=== PATIENT | female | born 1965 | race Caucasian/White ===

== ENCOUNTER 2017-02-12 05:57 | Inpatient (IN) | payer OTHER ==
[2017-01-30 12:22] VITALS: BMI 32.0
[~2017-02-12] VITALS: Ht 160 cm; Wt 81.8 kg
[2017-02-12] VITALS (8 sets, daily range): BP systolic 93–129; BP diastolic 61–76; PULSE 70–99; TEMP 36.5–37; O2SAT 92–97; Ht 160 cm; Wt 81.8 kg
[~2017-02-12 05:57] MED LIST: ANTICRE6 PO; CETI10TA84 PO; CHOLESTEROL PO; CITA10TA4 PO; DICL1TAB5 PO; FAMO20TA9 PO; MULT-513 PO
[2017-02-12] MEDS ORDERED: PREGABALIN 75 MG CAP PO SCH (06:00)
[2017-02-12] MEDS ORDERED: CLINDAMYCIN 600 MG/54 ML D5W IV SCH (06:00)
[2017-02-12] MEDS ORDERED: LACTATED RINGER'S 1000ML 1,000 ML IV SCH (06:00)
[2017-02-12] MEDS ORDERED: CLINDAMYCIN PHOS 150 MG/ML 2 ML VIAL IV SCH (06:00)
[2017-02-12] MEDS ORDERED: MIDAZOLAM HCL 1 MG/ML 2ML VIAL ONE (06:43)
[2017-02-12] MEDS ORDERED: FENTANYL CITRATE INJ 50 MCG/1 ML 2 ML VIAL ONE ×2 (06:43→08:09)
[2017-02-12] MEDS ORDERED: NRN300 PO (06:54)
[2017-02-12] MEDS ORDERED: PRLSR20 PO (06:54)
[2017-02-12] MEDS ORDERED: ACET-749 PO (06:54)
[2017-02-12] MEDS ORDERED: SIMV20TA2 PO (06:54)
[2017-02-12] MEDS ORDERED: BUPIVACAINE/EPINEPHRINE 0.5% MPF 1:200,000 30 ML VIAL ONE (07:05)
[2017-02-12] MEDS ORDERED: BACITRACIN 50000 UNIT VIAL ONE (07:05)
[2017-02-12] MEDS ORDERED: THROMBIN 5000 UNITS KIT ONE (07:05)
[2017-02-12] MEDS ORDERED: HEPARIN SOD (PORCINE) 1000 UNIT/ML 10 ML VIAL ONE (07:05)
[2017-02-12] MEDS ORDERED: THROMBIN FOR SOLN 20000 UNIT KIT ONE ×2 (07:05→07:06)
[2017-02-12] MEDS ORDERED: FENTANYL CITRATE INJ 50 MCG/1 ML 2 ML VIAL IV PRN (07:15)
[2017-02-12] MEDS ORDERED: HYDROmorphone INJ 1 MG/ML SYR IV PRN ×2 (07:15→12:00)
[2017-02-12] MEDS ORDERED: EpHEDrine SULFATE INJ 50 MG/ML AMP IV PRN (07:15)
[2017-02-12] MEDS ORDERED: ONDANSETRON INJ 2 MG/ML 2 ML VIAL IV PRN ×2 (07:15→09:45)
[2017-02-12] MEDS ORDERED: ATROPINE SULFATE 0.1 MG/ML 5ML SYR IV PRN (07:15)
[2017-02-12] MEDS ORDERED: SCOPOLAMINE 1.5 MG TDSY TD ONE (07:15)
--- NOTE | 2017-02-12 07:30 | History and Physical ---
History & Physical Date Feb 12, 2017. Chief Complaint LBP and bilateral leg pain History of Present Illness The patient is a 51 year old female with complaints of above who had a prior L3- 4 PSF and did well for a number of years. Her ability to tolerate activity and walk longer distances has been markedly limited. She has failed to see improvement with non operative management. MRI shows L2-3 stenosis, L4-5 facet djd. She was cleared by PCP and had a nl stress test preop. She denies santa weakness and incontinence. Past Medical/Surgical History BTL lumbar fusion cspine fusion [facility] elise sinus surgery hernia repair asthma tob use OA depression hi chol Additional History Hepatic Disease: No Endocrine Disorder: No Kidney Disease: No Hypertension: No Heart Disease: No Bleeding Tendencies: No Infectious Diseases: No Allergies Coded Allergies: Hydrocodone (Verified Allergy, Intermediate, ITCHY, 01/30/17) Hydromorphone (Verified Allergy, Intermediate, ITCHING, 01/30/17) Penicillins (Verified Allergy, Intermediate, RED DOTS AND ITCHY, 01/30/17) Sulfa Drugs (Verified Allergy, Intermediate, RED DOTS AND ITCHY, 01/30/17) Ciprofloxacin (Unverified Allergy, Unknown, PRURITIS PER PCP RECORDS , ) Metronidazole (Unverified Allergy, Unknown, HIVES PER PCP RECORDS , ) Morphine (Verified Allergy, Unknown, hives, 01/30/17) Moxifloxacin (Unverified Allergy, Unknown, HIVES PER PCP RECORDS , 02/06/17 ) Oxycodone (Unverified Allergy, Unknown, HIVES, CAN TAKE APAP, 01/30/17) Tramadol (Unverified Allergy, Unknown, RASH PER PCP RECORDS , 02/06/17) Epinephrine (Verified Adverse Reaction, Unknown, MAKES HEART RACE, 01/30/17 ) Home Medications Scheduled Cetirizine (Zyrtec), 10 MG PO HS Citalopram Hydrobromide (Citalopram Hydrobromide), 1 TAB PO HS Diclofenac (Voltaren ), 1 TAB PO HS Gabapentin (Gabapentin), 1 TAB PO TID Multivitamins/Minerals (Mvi With Minerals), 1 TAB PO HS Omeprazole (Prilosec), 40 MG PO DAILY Simvastatin (Zocor), 20 MG PO QPM [Antibiotic], 1 TAB PO BID Scheduled PRN Acetaminophen/Codeine (Tylenol W/Codeine #3), 1 TAB PO TID PRN for Pain Physical Examination Skin: warm/dry Eyes: normal inspection ENT: normal ENT inspection Head: normocephalic, atraumatic Neck: supple, trachea midline Respiratory/Chest: lungs clear, no respiratory distress Cardiovascular: regular rate, rhythm Back: normal inspection, + pertinent finding (midline scar) Extremities: normal inspection, normal range of motion Neurologic/Psych: no motor/sensory deficits, alert, normal reflexes, oriented x 3 Diagnosis lumbar adjacent level djd/stenosis L2-3 and L4-5 Plan of Treatment HWR L3-4 and L2-3 and L4-5 decompression/fusion
[2017-02-12] MEDS ORDERED: BUPIVACAINE 0.5 % 5 MG/1 ML MPF 30ML VIAL ONE (07:54)
[2017-02-12] MEDS ORDERED: FLOSEAL HEMOSTATIC MATRIX 10ML TOP ONE (09:28)
[2017-02-12] MEDS ORDERED: HYDROmorphone INJ 2 MG/ML SYR/VIAL ONE ×2 (09:39→09:43)
--- NOTE | 2017-02-12 09:39 | [facility] Post Operative Brief Note ---
Immediate Operative Summary Operative Date Feb 12, 2017. Pre-Operative Diagnosis Lumbar adjacent level degenerative joint disease, stenosis L2-3 and L4-5 Post-Operative Diagnosis Same as pre-operative diagnosis Procedure(s) Performed L2-L3, L4-L5, Decompression; L2-L5 Instrumented Fusion; L3-L4 Hardware Removal; Infuse; Arteriocyte Surgeon Dr. Francesco Ross Turbo Operator Surgeon(s) Victor Hugo Peace PA-C Estimated Blood Loss 150 ml Findings dict Specimens A: Explanted hardware lumbar spine L3-L4
[2017-02-12] MEDS ORDERED: DEXAMETHASONE SOD INJ 4 MG/ML VIAL ONE (09:40)
[2017-02-12] MEDS ORDERED: NEOSTIGMINE METHYLSULFATE 1 MG/ML 10ML VIAL ONE ×2 (09:40→09:45)
[2017-02-12] MEDS ORDERED: PROPOFOL IV EMULSION 10 MG/ML 20 ML VIAL IV ONE (09:40)
[2017-02-12] MEDS ORDERED: GLYCOPYRROLATE INJ 0.2 MG/ML VIAL ONE ×2 (09:40→09:45)
[2017-02-12] MEDS ORDERED: ROCURONIUM BROMIDE 10 MG/ML 5 ML VIAL ONE (09:40)
[2017-02-12] MEDS ORDERED: RANITIDINE HCL 25 MG/ML INJ ONE ×2 (09:40→09:45)
[2017-02-12] MEDS ORDERED: LIDOCAINE HCL 2% 2 ML VIAL (20MG/ML) ONE (09:40)
[2017-02-12] MEDS ORDERED: ONDANSETRON INJ 2 MG/ML 2 ML VIAL ONE (09:40)
[2017-02-12] MEDS ORDERED: METOCLOPRAMIDE HCL INJ 5 MG/ML 2 ML VIAL ONE (09:45)
[2017-02-12] MEDS ORDERED: FAMOTIDINE 20 MG TAB PO PRN (09:45)
[2017-02-12] MEDS ORDERED: METOCLOPRAMIDE HCL INJ 5 MG/ML 2 ML VIAL IV PRN (09:45)
[2017-02-12] MEDS ORDERED: ESMOLOL HCL 10 MG/ML 10 ML VIAL ONE (09:45)
[2017-02-12] MEDS ORDERED: KETOROLAC TROMETHAMINE 30 MG/ML VIAL ONE (09:45)
[2017-02-12] MEDS ORDERED: LORAZEPAM 0.5 MG TAB PO PRN (09:45)
[2017-02-12] MEDS ORDERED: BISACODYL 10 MG SUPP PR PRN (09:45)
[2017-02-12] MEDS ORDERED: DiphenhydrAMINE HCL 50 MG/ML VIAL ONE (09:45)
[2017-02-12] MEDS ORDERED: ACETAMINOPHEN IV 100 ML IV PRN (09:45)
[2017-02-12] MEDS ORDERED: HYDROmorphone INJ 0.5 MG/0.5 ML SYR IV PRN (09:45)
[2017-02-12] MEDS ORDERED: PROMETHAZINE HCL INJ 12.5 MG in SODIUM CHLORIDE 0.9% 50ML 50 ML IV PRN (09:45)
[2017-02-12] MEDS ORDERED: NALOXONE HCL 0.4 MG/1 ML VIAL/CARP IV PRN (09:45)
[2017-02-12] MEDS ORDERED: MAGNESIUM HYDROXIDE SUSP 30 ML UDC PO PRN (09:45)
[2017-02-12] MEDS ORDERED: hydrOXYzine HCL 25 MG TAB PO PRN (09:45)
[2017-02-12] MEDS ORDERED: LORAZEPAM INJ 0.5 MG in SYRINGE 0.75 ML IV PRN (09:45)
[2017-02-12] MEDS ORDERED: SOD PHOSPHATE/SOD BIPHOSPHATE ENEMA 132 ML BTL PR PRN (09:45)
[2017-02-12] MEDS ORDERED: ALUMINUM/MAGNESIUM SUSP 30 ML UDC PO PRN (09:45)
--- NOTE | 2017-02-12 10:01 | DIAGNOSTIC IMAGING REPORT ---
Intraoperative lumbar spine 3 views CLINICAL HISTORY: L2-5 decompression and fusion COMPARISON STUDY: No previous studies for comparison. FINDINGS: 8 seconds of fluoroscopic time was utilized. There are postsurgical changes of a discectomy and interbody fusion at the L3-4 level. There are bilateral L2 pedicle screws. There is a left-sided L3 pedicle screw, right-sided L4 pedicle screw, bilateral L5 pedicle screws. There are adjoining spinal rods. There is mild retrolisthesis of L2 on L3. IMPRESSION: Postsurgical changes of a discectomy and spinal fusion Electronically signed by: Bismark Arvizu M.D. 02/12/2017 10:00 AM Dictated Date/Time: 02/12/2017 9:58 AM
--- NOTE | 2017-02-12 10:50 | Anesthesiology Progress Note ---
Anesthesia Post Op Note Date & Time Feb 12, 2017 at 10:50 Vital Signs Pain Intensity: 0 Vital Signs Past 12 Hours Date Time Temp Pulse Resp B/P Pulse Ox O2 Delivery O2 Flow Rate FiO2 02/12/17 10:45 36.2 91 16 113/66 96 Nasal Cannula 2 02/12/17 10:35 36.2 92 16 115/73 100 Nasal Cannula 4 02/12/17 10:25 90 20 121/75 100 Nasal Cannula 4 02/12/17 10:15 91 20 121/70 100 Nasal Cannula 4 02/12/17 10:05 97 20 127/75 100 Mask 10 02/12/17 09:55 99 20 114/66 100 Mask 10 02/12/17 09:47 36 97 14 123/58 100 Mask 10 02/12/17 06:39 36.8 70 16 129/68 96 Room Air Notes Mental Status: alert / awake / arousable, participated in evaluation Pt Amnestic to Procedure: Yes Nausea / Vomiting: adequately controlled Pain: adequately controlled Airway Patency, RR, SpO2: stable & adequate BP & HR: stable & adequate Hydration State: stable & adequate Anesthetic Complications: no major complications apparent
--- NOTE | 2017-02-12 11:04 | OPERATIVE REPORT ---
DATE OF OPERATION: 02/12/2017 PREOPERATIVE DIAGNOSES: 1. Previous L3-4 instrumented fusion. 2. L2-3 spinal stenosis. 3. L4-5 spinal stenosis, facet arthrosis. POSTOPERATIVE DIAGNOSIS: Same. PROCEDURES: 1. L2 and L4 laminectomies with bilateral medial facetectomies L2-3 and L3-4. 2. Segmental pedicle screw instrumentation -- bilateral L2, left L3, right L4, bilateral L5 with K2M [place] pedicle screws. 3. Posterolateral fusion L2-3 and L4-5 with Infuse BMP on a collagen sponge, tricalcium phosphate, local bone, bone putty, bone marrow aspirate. 4. Right iliac crest bone marrow aspiration, stem cell concentration Arteriocyte system, application of bone graft ballistics expert forensic. 5. Hardware removal, bilateral L3-4 and exploration of fusion. SURGEON: Dr. Ross. CONVEYOR SYSTEM DISPATCHER: Victor Hugo Peace PA-C. Please note he participated in all portions of the procedure and was critical for performance of the procedure, participated in positioning, prepping, draping, retraction, wound closure. ANESTHESIA: General endotracheal anesthesia. COMPLICATIONS: None. ESTIMATED BLOOD LOSS: Per anesthesia record. PROCEDURE: After identification of patient and operative level, she was brought to the OR where she underwent induction of general anesthesia. She was then positioned prone on Rikki OR table. All bony prominences were well padded. Care was taken to avoid pressure on the periorbital area. Lumbosacral area was sterilely prepped and draped in usual fashion. Antibiotics were administered. Time-out was performed. Level was confirmed and skin incision was infiltrated with Marcaine. I made skin incision from spinous process of L1-L5. I performed routine posterior exposure out to the tip of the transverse processes and placed Gelpi retractors. Previous hardware was identified, level was confirmed and midline decompression was accomplished at L2-3 and L4-5 with removal of the L2 and L4 lamina and takedown ligamentum flavum and removal of the medial facets with osteotome at L2-3 and L4-5. I completed decompression with Kerrisons L2-3 and L4-5 and palpated the nerve roots were decompressed at L2-3 and L4-5 bilaterally. I applied FloSeal for hemostasis and proceeded to remove the hardware at L3-L4 bilaterally. I removed the screws, the rods and demonstrated there was no motion through the L3-4 segment after [place] removal. I then placed pedicle screws bilaterally at L2, bilaterally at L5 and then reintroduced screws into the holes of L3 on the left and L4 on the right. I then checked screw position with fluoroscopy and lowered the Wong frame to restore lordosis. I placed rods and endcaps from L2-L5 bilaterally and final tightening. Crosslink was placed as well. I then aspirated bone marrow from the right iliac crest via separate stab incision with a Jamshidi needle concentrated with the Arteriocyte system applied to bone graft ballistics expert forensic, mixed it with morcellized local bone. I then decorticated the transverse process of L2, L3, L4 and L5 with a high speed benedict as well as facets at L2-3 and L4-5. I then packed the lateral gutters with bone graft mixture as described above including Infuse BMP and a collagen sponge strips. I did irrigate prior to bone grafting. I then obtained final x-rays and closed in layered fashion over ABELARDO drain. All sponge and needle counts were correct at the end of the case. I attest to the content of the Intraoperative Record and any orders documented therein. Any exceptio ns are noted below.
[2017-02-12] MEDS ORDERED: SODIUM CHLORIDE 0.9% 1000ML 1,000 ML IV SCH (12:00)
[2017-02-12] MEDS: GABAPENTIN 300 MG CAP PO SCH ×2 (13:56→21:39)
[2017-02-12] MEDS: DEXAMETHASONE INJ 6 MG in SYRINGE 0 ML IV SCH ×2 (13:56→21:41)
[2017-02-12] MEDS: CLINDAMYCIN IV 600 MG in DEXTROSE 5% ADD-VANTAGE 50ML 50 ML IV SCH ×2 (16:32→23:51)
[2017-02-12] MEDS ORDERED: DOCUSATE SODIUM/SENNA 50/8.6MG TAB PO SCH (21:00)
[2017-02-12] MEDS ORDERED: CITALOPRAM 20 MG TAB PO SCH (21:00)
[2017-02-13] VITALS (7 sets, daily range): BP systolic 104–116; BP diastolic 58–73; PULSE 80–90; TEMP 36.5–37.1; O2SAT 92–94
[2017-02-13] MEDS: DEXAMETHASONE INJ 6 MG in SYRINGE 0 ML IV SCH (05:22)
[2017-02-13 08:29] LABS: COMPLETE YES; HEMATOCRIT 34.1 % (37-47); IG% 0.4 %; LYMPH % 6.4 %; LYMPH ABS # 1.39 K/uL (1.2-3.4); MEAN CELL VOLUME 90.7 fL (80-100); MEAN CORPUSCULAR HEMOGLOBIN 31.1 pg (25-34); MEAN CORPUSCULAR HGB CONC 34.3 g/dl (32-36); MEAN PLATELET VOLUME 10.9 fL (7.4-10.4); MONO % 3.8 %; NEUT % 89.4 %; PLATELET COUNT 319 K/uL (130-400); RED BLOOD COUNT 3.76 M/uL (4.2-5.4)
--- NOTE | 2017-02-13 08:51 | Anesthesiology Progress Note ---
Anesthesia Post Op Note Date & Time Feb 13, 2017 at 08:44 Vital Signs Vital Signs Past 12 Hours Date Time Temp Pulse Resp B/P Pulse Ox O2 Delivery O2 Flow Rate FiO2 02/13/17 08:25 36.8 80 16 110/60 92 Room Air 02/13/17 03:12 36.7 81 16 109/71 92 Room Air 02/13/17 00:09 36.5 87 16 104/65 93 Room Air 02/12/17 21:30 Room Air Notes Mental Status: alert / awake / arousable, participated in evaluation Pt Amnestic to Procedure: Yes Nausea / Vomiting: adequately controlled Pain: adequately controlled Airway Patency, RR, SpO2: stable & adequate BP & HR: stable & adequate Hydration State: stable & adequate Anesthetic Complications: Patient reports that her front upper right lateral incisor is chipped. A small sliver does appear to be missing from the bottom of the tooth and she reports it feels like a portion is missing from the back of the tooth. Dr. Mcgregor notified of patients concern. Patient states no other complaints with the anesthetic and is feeling well otherwise.
[2017-02-13] MEDS: GABAPENTIN 300 MG CAP PO SCH ×2 (08:54→13:48)
[2017-02-13] MEDS: OXYCODONE HCL IR 5 MG TAB (IMMEDIATE RELEASE) PO PRN ×2 (08:57→16:27)
[2017-02-13] MEDS ORDERED: PANTOprazole SOD 40 MG TAB PO SCH (09:00)
[2017-02-13 09:02] LABS: BUN/CREATININE RATIO 10.3 (10-20); CALCIUM 8.7 mg/dl (8.5-10.1); CREATININE 0.68 mg/dl (0.60-1.20); POTASSIUM 3.8 mmol/L (3.5-5.1)
--- NOTE | 2017-02-13 13:54 | Orthopedic Progress Note ---
Orthopedic Progress Note Date of Service Feb 13, 2017. Subjective Post OP Day: 1 Reports: feeling well, pain controlled w PO medications, Denies: SOB, calf pain , chest pain, complaints, light headedness, nausea / vomiting, using ELDERLY COMPANION Objective calves soft nontender, N/V intact, dressing C/D/I, A&O x3, hemovac drainage Date Time Temp Pulse Resp B/P Pulse Ox O2 Delivery O2 Flow Rate FiO2 02/13/17 11:46 37.1 90 20 112/58 93 Room Air 02/13/17 08:51 92 Room Air 02/13/17 08:25 36.8 80 16 110/60 92 Room Air 02/13/17 07:45 Room Air 02/13/17 03:12 36.7 81 16 109/71 92 Room Air 02/13/17 00:09 36.5 87 16 104/65 93 Room Air 02/12/17 21:30 Room Air 02/12/17 19:15 36.7 99 18 99/62 95 Room Air 02/12/17 16:27 37.0 95 18 102/61 92 Nasal Cannula 2.0 02/12/17 14:30 36.6 97 16 99/63 Laboratory Results 24 Hours: Test 02/13/17 06:55 White Blood Count 21.60 K/uL Red Blood Count 3.76 M/uL Hemoglobin 11.7 g/dL Hematocrit 34.1 % Mean Corpuscular Volume 90.7 fL Mean Corpuscular Hemoglobin 31.1 pg Mean Corpuscular Hemoglobin Concent 34.3 g/dl Platelet Count 319 K/uL Mean Platelet Volume 10.9 fL Neutrophils (%) (Auto) 89.4 % Lymphocytes (%) (Auto) 6.4 % Monocytes (%) (Auto) 3.8 % Eosinophils (%) (Auto) 0.0 % Basophils (%) (Auto) 0.0 % Neutrophils # (Auto) 19.30 K/uL Lymphocytes # (Auto) 1.39 K/uL Monocytes # (Auto) 0.82 K/uL Eosinophils # (Auto) 0.00 K/uL Basophils # (Auto) 0.00 K/uL Assessment & Plan Assessment: doing well, pain controlled, tolerates oxycodone, independent with ambulation Plan: desires d/c, will go home with drain Discharge Planning Discharge Planning: home Pain Management: Oxy IR DVT Prophylaxis: SCDs
[2017-02-13] MEDS ORDERED: RXC5 PO (13:55)
--- NOTE | 2017-02-13 13:56 | Discharge Instructions ---
Discharge Instructions Date of Service Feb 13, 2017. Admission Reason for Admission: Lumbar Spinal Stenosis Discharge Discharge Diagnosis / Problem: same Discharge Goals Goal(s): Decrease discomfort Activity Recommendations Activity Limitations: per Instructions/Follow-up section . Instructions / Follow-Up Instructions / Follow-Up ACTIVITY RECOMMENDATIONS: SELF CARE INSTRUCTIONS AFTER THORACIC/LUMBAR FUSIONS 1. You may walk to your tolerance. It is good exercise for your legs and back. Expect some back and intermittent leg aches and pains. 2. You may perform "counter-top" level activities (make a sandwich, monica with a project, etc.). 3. No bending or lifting of more than 10 pounds or back twisting of any nature (roll like a log when turning in bed). 4. You may ride in a car for 20-30 minutes at a time. No driving until after your first visit with your doctor. 5. Frequent changes of position and restricting sitting to 30 minutes at a time will help limit the amount of back spasms and stiffness you may experience. 6. You may discontinue the use of ambulatory aids (cane, crutches, etc.) once your strength and confidence allow. 7. You may electrical machine builder the shower and let water strike your incision when you arrive home at least once daily. Do not take a tub bath, sit in a hot tub or go into a swimming pool until after your first recheck in the office. SPECIAL CARE INSTRUCTIONS: VERY IMPORTANT TO READ AND REVIEW A. Your surgical incision has been closed with a cosmetic suture under the skin that will dissolve in about 6 weeks. In 14 days, you can use a pair of clean scissors and cut the suture that is left outside of the skin at the ends of your incision. 1. The small skin tapes can be removed 7 days after surgery if they have not fallen off by that point. 2. You may keep the wound open to air as much as possible to promote healing after post-op day number 5 unless told otherwise by your doctor. 3. If you think the wound looks like it is becoming infected (redness or worsening drainage) and/or you are experiencing fever, chill or worsening back pain and muscle spasms, contact the office so that we may evaluate you as soon as possible. B. Complications are uncommon, but please contact us if you have any signs or symptoms of: 1. wound infection (fever higher than 102.5 degrees F, redness, separation of wound, drainage, or increasing pain from the incision) 2. blood clots in legs (pain, swelling, redness and warmth in legs) 3. urinary tract infection (fever higher than 102.5 degrees F, burning upon urination or increased frequency of urination) 4. nerve problems (inability to walk on your toes or heels, numbness, loss of bowel or bladder control) 5. any other symptoms that concern you C. Please call the office at if you have any concerns or questions about your operation or recovery. D. No smoking! Smoking drastically decreases the chance of a solid fusion. E. Do not take any anti-inflammatory medications (Indocin, Advil, Motrin, Aspirin, Naprosyn, etc.) as these may inhibit the chance of a solid fusion. Tylenol is okay to take for pain. MANAGING PAIN AFTER SPINAL SURGERY 1. Narcotic medication is intended for short-term use and will be provided for surgical pain. Surgical pain usually lasts for a period of 4-6 weeks. Narcotic medication includes Percocet, Vicodin, Darvocet, Tylenol #3 or Lortab. 2. Longer-term pain is more appropriately treated with non-narcotic medication such as Tylenol ES. 3. Muscle spasm is not appropriately treated with narcotics. Muscle relaxers such as Soma, Flexeril or Skelaxin can be used along with Tylenol ES. 4. Remember that we all live with some "aches and pains". This is not unusual or uncommon after an injury or as we get older. a. Back pain is expected and may include muscle spasms for 4 to 6 weeks after surgery. The pain should gradually improve. If the pain worsens for no apparent reason, please contact the office. b. Intermittent leg pain may also be experienced and should not be concerned about unless it worsens for no apparent reason. If so, please contact the office. 5. We will provide appropriate medication within the normal guidelines of their prescribed use. We will also be very cautious and aware of potential abuse and extended duration of patients' medication needs. a. Pain medications are for your comfort and to assist with sleep and rest so that the tissue can heal. They are not provided in order to return to normal activity and should not be used through the day. To do so or worsening pain at night can result from ongoing tissue damage and development of tolerance to the prescribed medicine. 6. Please allow 2-3 days to process refills. Prescriptions will not be mailed but must be picked up at the office. FOLLOW UP VISIT: Keep your scheduled follow-up appointment. Any questions, please call the office at . Current Hospital Diet Patient's current hospital diet: Regular Diet Discharge Diet Recommended Diet: Regular Diet Procedures Procedures Performed: L2-L3, L4-L5, Decompression; L2-L5 Instrumented Fusion; L3-L4 Hardware Removal; Infuse; Arteriocyte Pending Studies Studies pending at discharge: no Medical Emergencies . Who to Call and When: Medical Emergencies: If at any time you feel your situation is an emergency, please call 911 immediately. . Non-Emergent Contact Non-Emergency issues call your: Surgeon . "Provider Documentation" section prepared by Francesco Ross. VTE Core Measure Inpt VTE Proph given/why not?: SCD's [place] Drug Monitoring Program Search Results: patient reviewed within database, no issues identified
--- NOTE | 2017-02-13 13:59 | Anesthesiology Progress Note ---
Anesthesia Progress Note Date of Service Feb 13, 2017. Progress Notes I evaluated the pt in regards to her chip tooth. She stated not noticing the chip until today. She stated noticing another piece of her tooth breaking off while eating today. Upon examination, there was a small chip on the interior medial surface of tooth #7. The chip was minimal. I spoke to the patient about laryngoscopy or a bite block possibly causing the malformation. The pt did not appear upset and stated she was happy with her care. I spoke with Dr. Ross about the incident. I also talked to Bala Back in regards to the matter. The pt is otherwise doing well without complaints.
[2017-02-14] MEDS ORDERED: POLYETHYLENE (MIRALAX) 17 GM PACK PO SCH (06:00)
--- NOTE | 2017-02-26 11:50 | Discharge Summary ---
Orthopedic Discharge Summary Admission Date/Reason Feb 12, 2017 at 09:42 Lumbar Spinal Stenosis. Discharge Date/Disposition Feb 13, 2017 Home Diagnosis Principal Diagnosis: lumbar stenosis, prior lumbar fusion Procedure(s) Performed HWR removal L3-4 and extension of lumbar fusion L2-5 Consultations hospitalist service Medication Reconciliation New Medications: Oxycodone HCl (Oxycodone HCl) 5 Mg Tab 5-10 MG PO Q4H PRN for Moderate - severe pain, #60 TAB do not take with tylenol with codeine Continued Medications: Acetaminophen/Codeine (Tylenol W/Codeine #3) 300 Mg/30 Mg Tab 1 TAB PO TID PRN for Pain, TAB Cetirizine (Zyrtec) 10 Mg Tab 10 MG PO HS, TAB Citalopram Hydrobromide (Citalopram Hydrobromide) 10 Mg Tab 1 TAB PO HS, TAB 3 Refills Diclofenac (Voltaren ) 25 Mg Tabec 1 TAB PO HS, TAB Gabapentin (Gabapentin) 300 Mg Cap 1 TAB PO TID Multivitamins/Minerals (Mvi With Minerals) Tab 1 TAB PO HS, 0 Refills Omeprazole (Prilosec) 20 Mg Capcr 40 MG PO DAILY, CAP Simvastatin (Zocor) 20 Mg Tab 20 MG PO QPM, TAB [Antibiotic] () 1 TAB PO BID DOENST REMEMBER NAME WILL BRING IN LIST OF MEDS IN AM OF SURGERY Admission Physical Exam As per Admitting History & Physical. Hospital Course Patient was admitted for elective Lumbar fusion and underwent the procedure without complications. She had stable vitals and H/H and was independent with ambulation. her pain was controlled on oral pain meds, and she desired d/c POD1. she was discharged with her HVC drain with instructions to return to office to discontinue it. Discharge Instructions Please refer to the electronic Patient Visit Report (Discharge Instructions) for additional information.
== END 2017-02-13 17:03 | disposition home or self-care (01) | DRG 460 ==
LOC: ENRESERVDT → ENRESERVTM → C.ACU 05:57 → C.3E 09:42
PROVIDERS: ADMIT Orthopaedic Surgery Orthopaedic Surgery of the Spine; ATTEND Orthopaedic Surgery Orthopaedic Surgery of the Spine
PROC: 3E0U0GB Introduction of Recombinant Bone Morphogenetic Protein into Joints, Open Approach (ICD-10-PCS; principal; 2017-02-12 07:30)
PROC: 0SP004Z Removal of Internal Fixation Device from Lumbar Vertebral Joint, Open Approach (ICD-10-PCS; principal; 2017-02-12 07:30)
PROC: 0SG1071 Fusion of 2 or more Lumbar Vertebral Joints with Autologous Tissue Substitute, Posterior Approach, Posterior Column, Open Approach (ICD-10-PCS; principal; 2017-02-12 07:30)
PROC: 07DR3ZZ Extraction of Iliac Bone Marrow, Percutaneous Approach (ICD-10-PCS; principal; 2017-02-12 07:30)
DX: M48.06 Spinal stenosis, lumbar region (principal); M47.816 Spondylosis without myelopathy or radiculopathy, lumbar region; S02.5XXA Fracture of tooth (traumatic), initial encounter for closed fracture; Y70.2 Prosthetic and other implants, materials and accessory anesthesiology devices associated with adverse incidents; Y92.234 Operating room of hospital as the place of occurrence of the external cause; J45.909 Unspecified asthma, uncomplicated; F17.210 Nicotine dependence, cigarettes, uncomplicated; E78.00 Pure hypercholesterolemia, unspecified; K21.9 Gastro-esophageal reflux disease without esophagitis; K58.9 Irritable bowel syndrome, unspecified; M19.90 Unspecified osteoarthritis, unspecified site; F41.9 Anxiety disorder, unspecified; F32.9 Major depressive disorder, single episode, unspecified; E66.9 Obesity, unspecified; Z68.32 Body mass index [BMI] 32.0-32.9, adult; Z98.1 Arthrodesis status; Z79.1 Long term (current) use of non-steroidal anti-inflammatories (NSAID); Z79.899 Other long term (current) drug therapy

== ENCOUNTER 2024-08-20 17:38 | Inpatient (IN) ==
[2024-08-20 18:58] LABS: Appearance Urine Clear (Clear); Bilirubin Urine Negative (Negative); Blood Urine Negative (Negative); Color Urine Yellow; Glucose Urine UA Negative (Negative); Ketones Urine Negative (Negative); Leukocyte Esterase Urine Negative (Negative); Nitrite Urine Negative (Negative); Protein Urine Negative (Negative); Specific Gravity Urine 1.006 (1.000-1.030); Urobilinogen Urine Negative (Negative)
[2024-08-20 19:02] LABS: Basophils # (auto) 0.06 K/uL (0.00-0.20); Basophils % (auto) 0.8 %; Eosinophils # (auto) 0.14 K/uL (0.00-0.50); Eosinophils % (auto) 1.8 %; Hematocrit (blood only) 46.1 % (37.0-47.0); Hemoglobin 16.1 g/dl (12.0-16.0); Immature Granulocytes # (auto) 0.03 K/uL (0.01-0.20); Immature Granulocytes % (auto) 0.4 %; Lymphocytes # (auto) 2.83 K/uL (1.20-3.40); Lymphocytes % (auto) 36.3 %; Mean Corpuscular Hgb Conc 34.9 g/dL (32.0-36.0); Mean Corpuscular Volume 88.7 fL (80.0-100.0); Mean Platelet Volume 10.3 fL (9.4-12.4); Monocytes % (auto) 10.3 %; Neutrophils # (auto) 3.93 K/uL (1.40-6.50); Neutrophils % (auto) 50.4 %; Platelet Count 430 K/uL (130-400); RDW Coefficient of Variation 12.9 % (11.5-14.5); RDW Standard Deviation 42.2 fL (36.4-46.3); White Blood Count 7.79 K/ul (4.8-10.8)
--- NOTE | 2024-08-20 19:12 | Emergency Department Note ---
Impression & Plan Cauda equina compression, Spinal stenosis, lumbar region with neurogenic claudication, DDD (degenerative disc disease), lumbar ED Provider Note NAME: MONTEZ COY AGE: 59 SEX: F : 1965 ARRIVES VIA: Walk-In INFORMANT: Patient, ED PROVIDER(S): María Mccurdy MD CHIEF COMPLAINT: Abnormal MRI HPI: This is a 59-year-old female presents for abnormal MRI. Patient has had month-long history of worsening lower back pain. She has history of neck pain. She notes that for the past few weeks that she has had increasing episodes of bladder incontinence at night specifically. During the day she also has incontinence where he does not have a get to a bathroom in time, she does urinate on herself. She also notes sensation changes to her groin region. She is noting tingling pain down both of her legs as well as back. She has excruciating back pain. She had previously had surgery with Dr. Sharma here. ROS: See above HPI for pertinent positives & negatives. A total of 10 systems reviewed and were otherwise negative. PAST MEDICAL HISTORY: See Below PAST SURGICAL HISTORY: See Below FAMILY HISTORY: See Below SOCIAL HISTORY: See Below HOME MEDICATIONS: See Below ALLERGIES: See Below VITALS: See Below PHYSICAL EXAMINATION: General: resting comfortably in no acute distress Head: Normocephalic and atraumatic Eyes: Normal inspection, extraocular muscles intact Ear, nose, throat: Normal external exam Neck: Normal range of motion Respiratory: lungs clear to auscultation bilaterally Cardiovascular: Regular rate/rhythm, no murmur GI: soft, nontender, no guarding or rebound : Sensation changes to groin, no numbness Extremities: nontender, moves all extremities Neuro: The patient awake and alert, appropriately conversive, no focal deficits, symmetric faces, strength 5/5 bilateral extremities Skin: Warm, dry, and intact MEDICAL DECISION MAKING: This is a 59-year-old female presenting for abnormal MRI. Patient's MRI does reveal signs of moderate to severe canal stenosis at the level L1/L2. In addition there is compression of the nerve roots of cauda equina. Clinically she does not have clinical cauda equina to the point where she is having motor weakness or true incontinence. She did have a bladder scan here pre and post urinating going from 400s down to 6 mL. Otherwise she has full strength my exam. She does have sensation changes to her groin but not numbness. -Discussed with Matthew Courtney PA-C for orthopedic spine, Dr. Sharma, who was told about the story and need for consultation. They are available tomorrow morning. -Currently patient is not have clinical cauda equina on my exam but does have concerning findings on MRI. Will admit for further workup. Discussed Dr. Henderson who is agreement for admission at this time. Differential diagnosis: Cauda equina, central canal stenosis ER treatment provided: See below Independent History obtained from: Diagnostics interpreted by me: ECG: None Cardiac Monitoring: An order was placed for continuous cardiac monitoring. The monitor shows a rate of 88 with sinus rhythm. Laboratory studies: As stated above and show below. Imaging studies: See below. Past Med/Surg History Problem List (Updated 08/22/24 @ 03:48 by María Mccurdy MD) Cauda equina compression (Acute) Spinal stenosis, lumbar region with neurogenic claudication (Acute) DDD (degenerative disc disease), lumbar (Acute) Medical History Lumbar spinal stenosis Depression with anxiety Tobacco use IBS (irritable bowel syndrome) GERD (gastroesophageal reflux disease) HLD (hyperlipidemia) Surgical History Hx of neck surgery History of dental surgery wisdom tooth extraction Hx of tubal ligation Hx of cholecystectomy Hx of total hysterectomy Hx of sinus surgery History of carpal tunnel surgery Hx of lumbar discectomy History of resection of small bowel History of incisional hernia repair Hx of esophagogastroduodenoscopy Hx of colonoscopy Family History Mother Asthma Coronary heart disease Dyslipidemia Father Cancer Social History Smoking Status: Current every day smoker Tobacco Type: Cigarettes Cigarettes Per Day: 7; Do You Dip or Chew Tobacco: No; Tobacco Cessation Education Requested by Patient: No Hx Alcohol Use: No Hx Substance Use: No Preferred Language: Greenlandic Communication Ability: Effective Research Associate Policy Required: No Beliefs That Will Affect Care: None Current Living Situation: Family Feels Safe at Home: Yes and No Is there a partner from a previous relationship who is making you feel unsafe now?: No Any Concerns about Your Family Situation: No Would You Like to Speak to Someone About Your Situation: No Safety Concerns: Feels Safe At This Time Assistive Devices: Walker Allergies Allergies Allergy/AdvReac Type Severity Reaction Status Date / Time hydrocodone Allergy Intermediate ITCHY Verified 08/21/24 10:55 hydromorphone Allergy Intermediate ITCHING Verified 08/21/24 10:55 Penicillins Allergy Intermediate RED DOTS Verified 08/21/24 10:55 AND ITCHY Sulfa (Sulfonamide Allergy Intermediate RED DOTS Verified 08/21/24 10:55 Antibiotics) AND ITCHY ciprofloxacin [Cipro] Allergy Unknown PRURITIS Verified 08/21/24 10:55 PER PCP RECORDS metronidazole Allergy Unknown HIVES PER Verified 08/21/24 10:55 PCP RECORDS morphine Allergy Unknown hives Verified 08/21/24 10:55 moxifloxacin Allergy Unknown HIVES PER Verified 08/21/24 10:55 PCP RECORDS tramadol Allergy Unknown RASH PER Verified 08/21/24 10:55 PCP RECORDS Iodinated Contrast Media Allergy Anaphylaxis Verified 08/21/24 10:55 epinephrine AdvReac Unknown MAKES Verified 08/21/24 10:55 HEART RACE vicodine Allergy Intermediate Hives Uncoded 08/20/24 20:25 fentanyl Allergy Unknown Uncoded 08/20/24 20:25 Home Meds Home Medications Medication Instructions Recorded Confirmed acetaminophen 300 mg-codeine 30 mg 1 tab PO Q6H PRN Moderate Pain 08/20/24 08/20/24 tablet (Scale Score 5-6) albuterol sulfate 90 mcg/actuation 1 inh inhalation Q4H PRN 08/20/24 08/20/24 aerosol inhaler sob/wheezing cholecalciferol (vitamin D3) 25 50 mcg PO HS 08/20/24 08/20/24 mcg (1,000 unit) tablet cyanocobalamin (vitamin B-12) 500 1,000 mcg PO HS 08/20/24 08/20/24 mcg tablet levocetirizine 5 mg tablet 5 mg PO HS 08/20/24 08/20/24 montelukast 10 mg tablet 10 mg PO HS 08/20/24 08/20/24 multivitamin 1 tab PO HS 08/20/24 08/20/24 omeprazole 40 mg capsule,delayed 40 mg PO HS 08/20/24 08/20/24 release paroxetine HCl 10 mg tablet 10 mg PO HS 08/20/24 08/20/24 paroxetine HCl 40 mg tablet 40 mg PO HS 08/20/24 08/20/24 simvastatin 20 mg tablet 20 mg PO HS 08/20/24 08/20/24 Results & Data (ED) Vital Signs Vital Signs - 24 hr 08/21/24 07:54 08/21/24 07:54 Temperature 37.0 C Temperature Source Oral Pulse Rate [Left] 78 Respiratory Rate 17 Blood Pressure [Left Arm] 111/71 Blood Pressure Mean [Left Arm] 84 Blood Pressure Position [Left Arm] Lying Pulse Oximetry 92 Oxygen Delivery Method Room Air EWS Level of Consciousness - Last Result Spontaneously Alert EWS Temperature - Last Result 36.8 EWS Respiratory Rate - Last Result 16 EWS Oxygen Saturation - Last Result 96 EWS Oxygen in Use - Last Result No EWS Score 0 EWS Clinical Risk Low Risk Laboratory Data 08/20/24 18:33 08/20/24 18:33 Lab Results 08/20/24 Range/Units 18:33 WBC 7.79 (4.8-10.8) K/ul RBC 5.20 (4.20-5.40) M/uL Hgb 16.1 H (12.0-16.0) g/dl Hct 46.1 (37.0-47.0) % MCV 88.7 (80.0-100.0) fL MCH 31.0 (25.0-34.0) pg MCHC 34.9 (32.0-36.0) g/dL RDW Std Deviation 42.2 (36.4-46.3) fL RDW Coeff of Ankush 12.9 (11.5-14.5) % Plt Count 430 H (130-400) K/uL MPV 10.3 (9.4-12.4) fL Immature Gran % (Auto) 0.4 % Neut % (Auto) 50.4 % Lymph % (Auto) 36.3 % Ector % (Auto) 10.3 % Eos % (Auto) 1.8 % Baso % (Auto) 0.8 % Neut # (Auto) 3.93 (1.40-6.50) K/uL Lymph # (Auto) 2.83 (1.20-3.40) K/uL Ector # (Auto) 0.80 H (0.11-0.59) K/uL Eos # (Auto) 0.14 (0.00-0.50) K/uL Baso # (Auto) 0.06 (0.00-0.20) K/uL Immature Gran # (Auto) 0.03 (0.01-0.20) K/uL Sodium 139 (136-145) mmol/L Potassium 3.7 (3.5-5.1) mmol/L Chloride 104 (98-107) mmol/L Carbon Dioxide 28 (21-32) mmol/L Anion Gap 7 (3-11) BUN 6 (6-23) mg/dl Creatinine 0.73 (0.6-1.2) mg/dl Est Cr Clr Drug Dosing 78.7 ml/min eGFR 93.51 BUN/Creatinine Ratio 8.2 L (10-20) Glucose 92 (70-99(Fasting)) mg/dl Calcium 9.3 (8.6-10.3) mg/dl Total Bilirubin 0.5 (0.2-1.0) mg/dl AST 15 (13-39) U/L ALT 14 (7-52) U/L Alkaline Phosphatase 71 (34-104) U/L Total Protein 7.3 (6.0-8.3) gm/dl Albumin 4.4 (3.4-5.0) gm/dl Globulin 2.9 (2.5-4.0) gm/dl Albumin/Globulin Ratio 1.5 (0.9-2) Urine Color Yellow Urine Appearance Clear (Clear) Urine pH 7.0 (4.5-7.5) Ur Specific Ivor 1.006 (1.000-1.030) Urine Protein Negative (Negative) Urine Glucose (UA) Negative (Negative) Urine Ketones Negative (Negative) Urine Blood Negative (Negative) Urine Nitrite Negative (Negative) Urine Bilirubin Negative (Negative) Urine Urobilinogen Negative (Negative) Ur Leukocyte Esterase Negative (Negative) Administered Medications Cetirizine HCl (Cetirizine Hcl 10 Mg Tablet) 10 mg PO [facility] Stop: 09/19/24 22:29 Last Admin: 08/21/24 20:17 Dose: 10 mg Documented By: Admin: 08/20/24 23:17 Dose: 10 mg Documented By: JEREMY Cyanocobalamin (Cyanocobalamin (B-12) 500 Mcg Tablet) 1,000 mcg PO HS YAMILET Stop: 09/19/24 22:29 Last Admin: 08/21/24 20:17 Dose: 1,000 mcg Documented By: Admin: 08/20/24 23:15 Dose: 1,000 mcg Documented By: [facility]R Lactated Ringer's (Lr) 1,000 mls @ 15 mls/hr IV .Q24H YAMILET Stop: 09/20/24 11:14 Last Infusion: 08/21/24 11:51 Dose: Infused Documented By: Admin: 08/21/24 11:03 Dose: 15 mls/hr Documented By: ADDISON Clindamycin Phosphate (Cleocin/D5w) 900 mg in 50 mls @ 100 mls/hr IV PREOP YAMILET Stop: 08/22/24 05:59 Last Infusion: 08/21/24 16:56 Dose: Infused Documented By: Admin: 08/21/24 11:54 Dose: 100 mls/hr Documented By: KIARA Lactated Ringer's (Lr) 1,000 mls @ 100 mls/hr IV .Q10H YAMILET Stop: 09/20/24 16:43 Last Admin: 08/22/24 03:09 Dose: 100 mls/hr Documented By: Infusion: 08/22/24 03:09 Dose: Infused Documented By: Admin: 08/21/24 17:14 Dose: 100 mls/hr Documented By: JAVAN Clindamycin Phosphate (Cleocin/D5w) 600 mg in 50 mls @ 100 mls/hr IV Q8H YAMILET Stop: 08/22/24 04:29 Last Infusion: 08/22/24 03:39 Dose: Infused Documented By: Admin: 08/22/24 03:09 Dose: 100 mls/hr Documented By: Infusion: 08/21/24 20:47 Dose: Infused Documented By: Admin: 08/21/24 20:17 Dose: 100 mls/hr Documented By: JOHNNY Lidocaine (Lidocaine 5% 1 Patch) 1 patch TD HS YAMILET Stop: 09/19/24 20:59 Last Admin: 08/21/24 20:17 Dose: Not Given Documented By: Admin: 08/20/24 21:00 Dose: 1 patch Documented By: JEREMY Lorazepam (Lorazepam 0.5 Mg Tab) 0.5 mg PO TID PRN PRN Reason: Anxiety Stop: 09/19/24 21:11 Last Admin: 08/21/24 00:24 Dose: 0.5 mg Documented By: MICHEL Miscellaneous (Remove Lidoderm Patch) 1 each N/A DAILY@0900 [facility] Stop: 09/20/24 08:59 Last Admin: 08/21/24 08:16 Dose: 1 each Documented By: JAVAN Montelukast Sodium (Montelukast Sodium 10 Mg Tablet) 10 mg PO [facility] Stop: 09/19/24 22:29 Last Admin: 08/21/24 20:17 Dose: 10 mg Documented By: Admin: 08/20/24 23:16 Dose: 10 mg Documented By: JEREMY Multivitamins (Multivitamin Tab) 1 tab PO [facility] Stop: 09/19/24 22:29 Last Admin: 08/21/24 20:17 Dose: 1 tab Documented By: Admin: 08/20/24 23:17 Dose: 1 tab Documented By: JEREMY Oxycodone HCl (Oxycodone Hcl Ir 5 Mg Tab (Immediate Release)) 5 - 10 mg PO Q4H PRN PRN Reason: Pain & Pre PT Stop: 09/04/24 16:43 Last Admin: 08/21/24 21:46 Dose: 10 mg Documented By: JOHNNY Pantoprazole Sodium (Pantoprazole 40 Mg Tab) 40 mg PO [facility] Stop: 09/19/24 22:29 Last Admin: 08/21/24 20:17 Dose: 40 mg Documented By: Admin: 08/21/24 00:24 Dose: 40 mg Documented By: MICHEL Paroxetine HCl (Paroxetine Hcl 10 Mg Tab) 10 mg PO [facility] Stop: 09/20/24 20:59 Last Admin: 08/21/24 21:43 Dose: 10 mg Documented By: JOHNNY Paroxetine HCl (Paroxetine Hcl 20 Mg Tab) 40 mg PO [facility] Stop: 09/20/24 20:59 Last Admin: 08/21/24 21:43 Dose: 40 mg Documented By: JOHNNY Senna/Docusate Sodium (Docusate Sodium/Senna 50/8.6mg Tab) 2 tab PO HS YAMILET Stop: 09/20/24 20:59 Last Admin: 08/21/24 20:17 Dose: 2 tab Documented By: JOHNNY Simvastatin (Simvastatin 20 Mg Tab) 20 mg PO [facility] Stop: 09/19/24 22:29 Last Admin: 08/21/24 20:17 Dose: 20 mg Documented By: Admin: 08/20/24 23:17 Dose: 20 mg Documented By: JEREMY Vitamin D (Cholecalciferol 25 Mcg (1000 Units) Tab) 50 mcg PO [facility] Stop: 09/20/24 20:59 Last Admin: 08/21/24 20:17 Dose: 50 mcg Documented By: JOHNNY Discontinued Medications Bupivacaine HCl/Epinephrine Bitart (Bupivacaine/Epinephrine 0.25% 1:200,000 30 Ml Vial) Confirm Administered Dose 30 ml .ROUTE .STK-MED ONE Stop: 08/21/24 11:27 Last Admin: 08/21/24 12:40 Dose: 25 ml Documented By: GMJoel Bupivacaine HCl/Epinephrine Bitart (Bupivacaine/Epinephrine 0.25% 1:200,000 30 Ml Vial) Confirm Administered Dose 30 ml .ROUTE .STK-MED ONE Stop: 08/21/24 11:42 Last Admin: 08/21/24 12:40 Dose: Not Given Documented By: BM Cefazolin Sodium (Cefazolin 330 Mg/Ml 1 Gm Vial) Confirm Administered Dose 990 mg .ROUTE .STK-MED ONE Stop: 08/21/24 11:27 Last Admin: 08/21/24 12:39 Dose: Not Given Documented By: BM Cefazolin Sodium (Cefazolin 330 Mg/Ml 1 Gm Vial) Confirm Administered Dose 990 mg .ROUTE .STK-MED ONE Stop: 08/21/24 11:42 Last Admin: 08/21/24 12:39 Dose: Not Given Documented By: BM Clindamycin Phosphate (Clindamycin 900 Mg/D5w 50 Ml Bag) Confirm Administered Dose 900 mg IV .STK-MED ONE Stop: 08/21/24 11:16 Last Admin: 08/21/24 12:40 Dose: Not Given Documented By: BM Sodium Chloride (Nss) 1,000 mls @ 60 mls/hr IV .[id number] ONE Stop: 08/21/24 13:28 Last Infusion: 08/21/24 16:56 Dose: Infused Documented By: Infusion: 08/21/24 10:50 Dose: 0 mls/hr Documented By: Infusion: 08/21/24 00:13 Dose: 60 mls/hr Documented By: Admin: 08/20/24 21:03 Dose: 60 mls/hr Documented By: JEREMY Miscellaneous ( Floseal Hemostatic Matrix 10ml) 10 ml TOP ONCE ONE Stop: 08/21/24 14:00 Last Admin: 08/21/24 13:30 Dose: 1 ml Documented By: POLO Oxycodone HCl (Oxycodone Hcl Ir 5 Mg Tab (Immediate Release)) 5 - 10 mg PO QID PRN PRN Reason: Pain Stop: 09/03/24 20:19 Last Admin: 08/21/24 08:15 Dose: 10 mg Documented By: Admin: 08/21/24 04:00 Dose: 10 mg Documented By: Admin: 08/20/24 21:04 Dose: 10 mg Documented By: JEREMY Paroxetine HCl (Paroxetine Hcl 10 Mg Tab) 50 mg PO HS YAMILET Stop: 09/19/24 22:29 Last Admin: 08/20/24 23:17 Dose: 50 mg Documented By: JEREMY Scopolamine (Scopolamine 1 Mg/72 Hr Tdsy Patch) Confirm Administered Dose 1 patch TD .STK-MED ONE Stop: 08/21/24 11:50 Last Admin: 08/21/24 11:50 Dose: 1 patch Documented By: GABRIEL Discharge Plan Visit Data Chief Complaint: Abnormal Labs/Diagnostic Testing Stated Complaint: ABN MRI RESULT, DOC REF ED Provider: María Mccurdy Discharge Problem: Cauda equina compression, Spinal stenosis, lumbar region with neurogenic claudication, DDD (degenerative disc disease), lumbar Patient Disposition: Admitted As Inpatient Discharge Instructions Interventions: ED Discharge Assessment Last Done: 08/20/24 23:33
[2024-08-20 19:17] LABS: Albumin Globulin Ratio 1.5 (0.9-2); Albumin Level 4.4 gm/dl (3.4-5.0); BUN Creatinine Ratio 8.2 (10-20); Bilirubin,Total 0.5 mg/dl (0.2-1.0); Calcium 9.3 mg/dl (8.6-10.3); Creatinine Clr Calc Pharmacy 78.7 ml/min; Globulin 2.9 gm/dl (2.5-4.0); Potassium 3.7 mmol/L (3.5-5.1); Total Protein 7.3 gm/dl (6.0-8.3)
[2024-08-20] MEDS ORDERED: PROMETHAZINE 12.5 MG/50.5 ML BAG IV PRN (20:20)
[2024-08-20] MEDS ORDERED: ACETAMINOPHEN 325 MG TAB PO PRN (20:20)
--- NOTE | 2024-08-20 20:34 | History & Physical Report ---
Date of Service August 20, 2024 Assessment & Plan (1) Spinal stenosis, lumbar region with neurogenic claudication: (2) Cauda equina compression: (3) Tobacco use: (4) HLD (hyperlipidemia): (5) GERD (gastroesophageal reflux disease): (6) IBS (irritable bowel syndrome): (7) Depression with anxiety: Plan This is a 59-year-old female who has significant past medical history of Hyperlipidemia, thyroid nodule, GERD, IBS, obesity, DDD, history of cervical and lumbar surgery, RLS, tobacco use disorder, depression with anxiety who presents to ED secondary to abnormal MRI. Outpt MRI done at [facility]: * 1. Stable postsurgical changes of L2 through L5 instrumented posterior spinal fusion, L2-L3 through L4-L5 laminectomies and L3-L4 interbody fusion. * 2. Multilevel degenerative changes in the lumbar spine as described above, more pronounced at L1-L2 level with resultant moderate to severe spinal canal stenosis and compression of the nerve roots of the cauda equina. Interval progression as compared with prior MRI dated 02/13/2022. Discussed with [facility] Radiology to push images in PAC system to [facility] and this was complete Pts HPI, past history, physical exam, med reconciliation and discussion with [facility] radiology was performed by myself. Please refer to Dr. Jennings addendum regarding details of assessment and plan. History of Present Illness Chief Complaint: Referred to ED due to abnormal MRI Primary Care Provider: Alexa Martinez MD This is a 59-year-old female who has significant past medical history of Hyperlipidemia, thyroid nodule, GERD, IBS, obesity, DDD, history of cervical and lumbar surgery, RLS, tobacco use disorder, depression with anxiety who presents to ED secondary to abnormal MRI. She had a lumbar spine MRI performed on 08/19/2024. Results were consistent with moderate to severe spinal canal stenosis and compression of the nerve roots of the cauda equina more pronounced at L1-L2 level. This revealed significant change from MRI in 2021. Due to her prior history to be performed by Dr. Sharma it was recommended she seek ED at [facility]. She complains of worsening low back pain for the 4 months. She states she was seen down at [facility] and was told it was her neck. She has been, "doctoring," this at home for the last 4 months and the pain and weakness have been getting worse. She is having tingling in her tailbone. She has been using the tylenol with codeine and only mild relief. Again she has had prior lumbar surgery with Dr. Sharma. Over the last few weeks she has had intermittent episodes of bladder incontinence. She also complains of saddle anesthesia. She does have further radicular symptoms with tingling in the poste rior aspect of her lower extremities. Allergies Allergy/AdvReac Type Severity Reaction Status Date / Time hydrocodone Allergy Intermediate ITCHY Verified 01/30/17 12:19 hydromorphone Allergy Intermediate ITCHING Verified 01/30/17 12:19 Penicillins Allergy Intermediate RED DOTS Verified 01/30/17 12:19 AND ITCHY Sulfa (Sulfonamide Allergy Intermediate RED DOTS Verified 01/30/17 12:19 Antibiotics) AND ITCHY Cipro Allergy Unknown PRURITIS Unverified 02/06/17 12:37 PER PCP RECORDS ciprofloxacin [Cipro] Allergy Unknown PRURITIS Unverified 08/20/24 18:36 PER PCP RECORDS metronidazole Allergy Unknown HIVES PER Unverified 02/06/17 12:37 PCP RECORDS morphine Allergy Unknown hives Verified 01/30/17 12:19 moxifloxacin Allergy Unknown HIVES PER Unverified 02/06/17 12:37 PCP RECORDS tramadol Allergy Unknown RASH PER Unverified 02/06/17 12:37 PCP RECORDS Iodinated Contrast Media Allergy Anaphylaxis Verified 08/20/24 18:36 epinephrine AdvReac Unknown MAKES Verified 01/30/17 12:19 HEART RACE vicodine Allergy Intermediate Hives Uncoded 08/20/24 20:25 fentanyl Allergy Unknown Uncoded 08/20/24 20:25 Home Medications Medication Instructions Recorded Confirmed Type acetaminophen 300 mg-codeine 30 mg 1 tab PO Q6H PRN Moderate Pain 08/20/24 08/20/24 History tablet (Scale Score 5-6) albuterol sulfate 90 mcg/actuation 1 inh inhalation Q4H PRN 08/20/24 08/20/24 History aerosol inhaler sob/wheezing cholecalciferol (vitamin D3) 25 50 mcg PO HS 08/20/24 08/20/24 History mcg (1,000 unit) tablet cyanocobalamin (vitamin B-12) 500 1,000 mcg PO HS 08/20/24 08/20/24 History mcg tablet levocetirizine 5 mg tablet 5 mg PO HS 08/20/24 08/20/24 History montelukast 10 mg tablet 10 mg PO HS 08/20/24 08/20/24 History multivitamin 1 tab PO HS 08/20/24 08/20/24 History omeprazole 40 mg capsule,delayed 40 mg PO HS 08/20/24 08/20/24 History release paroxetine HCl 10 mg tablet 10 mg PO HS 08/20/24 08/20/24 History paroxetine HCl 40 mg tablet 40 mg PO HS 08/20/24 08/20/24 History simvastatin 20 mg tablet 20 mg PO HS 08/20/24 08/20/24 History Past Med/Surg History Problem List (Updated 08/20/24 @ 21:08 by Chrissy Quijano PA-C) Cauda equina compression Spinal stenosis, lumbar region with neurogenic claudication DDD (degenerative disc disease), lumbar Medical History Lumbar spinal stenosis Depression with anxiety Tobacco use IBS (irritable bowel syndrome) GERD (gastroesophageal reflux disease) HLD (hyperlipidemia) Surgical History Hx of neck surgery History of dental surgery wisdom tooth extraction Hx of tubal ligation Hx of cholecystectomy Hx of total hysterectomy Hx of sinus surgery History of carpal tunnel surgery Hx of lumbar discectomy History of resection of small bowel History of incisional hernia repair Hx of esophagogastroduodenoscopy Hx of colonoscopy Family History Mother Asthma Coronary heart disease Dyslipidemia Father Cancer Social History Smoking Status: Current every day smoker Tobacco Type: Cigarettes Cigarettes Per Day: 7; Do You Dip or Chew Tobacco: No; Tobacco Cessation Education Requested by Patient: No Hx Alcohol Use: No Hx Substance Use: No Preferred Language: Iraqi Communication Ability: Effective Part Maker Required: No Beliefs That Will Affect Care: None Current Living Situation: Family Feels Safe at Home: Yes and No Is there a partner from a previous relationship who is making you feel unsafe now?: No Any Concerns about Your Family Situation: No Would You Like to Speak to Someone About Your Situation: No Safety Concerns: Feels Safe At This Time Assistive Devices: Glasses Review of Systems Review of Systems: All systems reviewed & are unremarkable except as noted in HPI & below Physical Exam Physical Exam: Constitutional: WD/WN, vitals as above, NAD, sitting up in bed, pleasant, conversing easily Head: Normocephalic, Atraumatic Eyes: PERRL, conjunctivae normal, anicteric sclerae ENMT: external ear and nose normal, oropharynx normal Neck: trachea midline, no thyromegaly normal visual inspection Respiratory: normal respiratory effort, lungs clear to auscultation, no wheeze, rales, rhonchi. Normal insp/exp effort, no accessory muscle use Cardiovascular: RRR, no murmur, no edema Vessels: no JVD or carotid bruit Chest: normal inspection of chest Abdomen: normal bowel sounds, soft, nontender, no hepatosplenomegaly Musculoskeletal: no cyanosis or clubbing, extremities motor strength 5/5 Skin: no rashes, warm and dry normal turgor Neurologic: PERRL, EOMI, accommodation nl, no face palsy, no dysarthria CN's II-XI intact bilaterally and moves all extremities Psychiatric: A+Ox3, euthymic affect Lymphatic: no cervical or axillary lymphadenopathy : deferred Results & Data Results & Data Vital Signs (Past 12 Hours) Vital Signs Temp Pulse Resp BP BP Pulse Ox O2 Del Method 08/20/24 19:39 20 147/85 H 98 Room Air 08/20/24 17:48 36.2 C L 88 18 142/83 H 97 Room Air Laboratory Results I have independently reviewed and interpreted patient's admitting labs including CBC, CMP, UA Diagnostic Findings Outpatient Lumbar Spine MRI done 08/19/24 at [facility] EXAM MRI L SPINE WO CONTRAST - 08/19/2024 5:03 pm HISTORY worsening weakness of lower extremities and worsening back pain from baseline since april, worsening incontinence TECHNIQUE Procedure: Sagittal and axial T1 and T2 weighted magnetic resonance imaging obtained through the lumbosacral spine pre-contrast. Coronal T2 series also provided. FINDINGS There is mild retrolisthesis of L1 on L2 and L2 on L3. Stable postsurgical changes of L2 through L5 instrumented posterior spinal fusion, L2-L3 through L4- L5 laminectomies and L3-L4 interbody fusion are redemonstrated. The susceptibility artifacts from the spinal instrumentation limit the evaluation of the adjacent structures. Multilevel endplate degenerative changes are seen in the thoracolumbar spine, more pronounced at T10-T11 and L1-L2 levels.. Vertebral bodies otherwise demonstrate normal signal intensity on all sequences. There are no compression fractures. The conus medullaris terminates at the level of L1-L2. The distal spinal cord signal intensity is normal. Multilevel disc desiccation is seen in the lumbar spine.. Limited views of the abdomen and pelvis show no soft tissue abnormality. The aorta is normal. L1-L2: Moderate disc bulge. There is moderate bilateral facet arthropathy. There is zgcm-xe-vjpeymjj bilateral neuroforaminal stenosis. There is ligamentum flavum infolding and epidural lipomatosis. There is moderate to severe spinal canal stenosis with compression of the nerve roots of the cauda equina. L2-L3: Amjk-le-ccuesesp disc bulge. There is ndvb-uv-znoakunx bilateral neuroforaminal stenosis. There is no spinal canal stenosis. L3-L4: Mild disc bulge. There is mild bilateral neuroforaminal stenosis. There is no spinal canal stenosis. L4-L5: Mild disc bulge. There is mild bilateral neuroforaminal stenosis. There is no spinal canal stenosis. L5-S1: Mild disc bulge. There is moderate bilateral facet arthropathy. A synovial cyst is noted along the anteromedial aspect of the left L5-S1 facet j oint projecting into the spinal canal. There is mild bilateral neuroforaminal stenosis. There is no spinal canal stenosis. IMPRESSION IMPRESSION 1. Stable postsurgical changes of L2 through L5 instrumented posterior spinal fusion, L2-L3 through L4-L5 laminectomies and L3-L4 interbody fusion. 2. Multilevel degenerative changes in the lumbar spine as described above, more pronounced at L1-L2 level with resultant moderate to severe spinal canal stenosis and compression of the nerve roots of the cauda equina. Interval progression as compared with prior MRI dated 02/13/2022. The report is submitted to radiology anti air warfare operations officer at 8:49 a.m. on 08/20/2024 for communication with referring provider as per Act 112. Medications Administered Medication List Sodium Chloride (Nss) 1,000 mls @ 60 mls/hr IV .[id number] ONE Stop: 08/21/24 13:28 Last Admin: 08/20/24 21:03 Dose: 60 mls/hr Lidocaine (Lidocaine 5% 1 Patch) 1 patch TD HS YAMILET Stop: 09/19/24 20:59 Last Admin: 08/20/24 21:00 Dose: 1 patch Oxycodone HCl (Oxycodone Hcl Ir 5 Mg Tab (Immediate Release)) 5 - 10 mg PO QID PRN PRN Reason: Pain Stop: 09/03/24 20:19 Last Admin: 08/20/24 21:04 Dose: 10 mg COVID-19 Results Results COVID-19 Adm Lab Results: RBC 5.20 M/uL (4.20-5.40) 08/20/24 WBC 7.79 K/ul (4.8-10.8) 08/20/24 Hgb 16.1 g/dl (12.0-16.0) H 08/20/24 Hct 46.1 % (37.0-47.0) 08/20/24 Plt Count 430 K/uL (130-400) H 08/20/24 Neutrophils (%) (Auto) 50.4 % 08/20/24 Lymphocytes (%) (Auto) 36.3 % 08/20/24 Eosinophils # (Auto) 0.14 K/uL (0.00-0.50) 08/20/24 Immature Granulocyte % (Auto) 0.4 % 08/20/24 Neutrophils # (Auto) 3.93 K/uL (1.40-6.50) 08/20/24 Lymphocytes # (Auto) 2.83 K/uL (1.20-3.40) 08/20/24 Eosinophils # (Auto) 0.14 K/uL (0.00-0.50) 08/20/24 Basophils # (Auto) 0.06 K/uL (0.00-0.20) 08/20/24 Immature Granulocyte # (Auto) 0.03 K/uL (0.01-0.20) 4 Na 139 mmol/L (136-145) 08/20/24 K 3.7 mmol/L (3.5-5.1) 08/20/24 Cl 104 mmol/L (98-107) 08/20/24 CO2 28 mmol/L (21-32) 08/20/24 Anion Gap 7 (3-11) 08/20/24 BUN 6 mg/dl (6-23) 08/20/24 Creatinine 0.73 mg/dl (0.6-1.2) 08/20/24 BUN/Creatinine Ratio 8.2 (10-20) L 08/20/24 Glucose Level 92 mg/dl (70-99(Fasting)) 08/20/24 Ca 9.3 mg/dl (8.6-10.3) 08/20/24 Total Bilirubin 0.5 mg/dl (0.2-1.0) 08/20/24 AST/SGOT 15 U/L (13-39) 08/20/24 ALT/SGPT 14 U/L (7-52) 08/20/24 Alkaline Phosphatase 71 U/L (34-104) 08/20/24 Total Protein 7.3 gm/dl (6.0-8.3) 08/20/24 Albumin 4.4 gm/dl (3.4-5.0) 08/20/24 Globulin 2.9 gm/dl (2.5-4.0) 08/20/24 Albumin/Globulin Ratio 1.5 (0.9-2) 08/20/24 Code Status & VTE Plan Code Status FULL CODE Supervising Physician Co-Signing Physician Notes IM ATTENDING : Patient seen and examined. History obtained from patient and records. Concur with salient points upon review of preceding documentation by Ms. Chrissy Quijano PA-C. I take responsibility for plan of care below. FINAL ASSESSMENT AND PLAN as follows : Progressive lumbar radiculopathy, history lumbar surgery 2017 COPD, pulmonary status at baseline chronic polycythemia possibly from SERENITY Anxiety/mood disorder, patient expresses anxiety related to possible procedure. Ongoing tobacco abuse OBS [facility] Analgesia Orthopedic spine consult Re: Progressive lumbar radiculopathy, possible cauda equina on recent outpatient MRI (ED provider already in touch with [facility] on-call. No definite surgical intervention for now until patient evaluated in AM.) N.p.o. after midnight until patient seen by specialist in anticipation of procedure. Nicotine patch as needed DVT prophylaxis. SCDs re: possible procedure Full code Text document was generated using [employer] voice recognition software. It may contain grammatical or spelling errors. Kindly contact undersigned for clarification of any documentation item in question.
[2024-08-20] MEDS: LIDOCAINE 5% 1 PATCH TD SCH (21:00)
[2024-08-20] MEDS: SODIUM CHLORIDE 0.9% 1,000 ML IV ONE (21:03)
[2024-08-20] MEDS: oxyCODONE HCL IR 5 MG TAB (IMMEDIATE RELEASE) PO PRN (21:04)
[2024-08-20] MEDS ORDERED: ALBUT/IPRATROP 3MG/0.5MG NEB 3 ML VIAL NEB PRN (22:31)
[2024-08-20] MEDS: CYANOCOBALAMIN (B-12) 500 MCG TABLET PO SCH (23:15)
[2024-08-20] MEDS: MONTELUKAST SODIUM 10 MG TABLET PO SCH (23:16)
[2024-08-20] MEDS: SIMVASTATIN 20 MG TAB PO SCH (23:17)
[2024-08-20] MEDS: MULTIVITAMIN TAB PO SCH (23:17)
[2024-08-20] MEDS: PARoxetine HCL 10 MG TAB PO SCH (23:17)
[2024-08-20] MEDS: CETIRIZINE HCL 10 MG TABLET PO SCH (23:17)
[2024-08-21] MEDS: PANTOprazole 40 MG TAB PO SCH (00:24)
[2024-08-21] MEDS: LORazepam 0.5 MG TAB PO PRN (00:24)
--- NOTE | 2024-08-21 08:17 | Orthopedic Consultation ---
Date of Consultation August 21, 2024 Assessment & Plan (1) Spinal stenosis, lumbar region with neurogenic claudication: Patient presents with significant lower back and leg symptoms with severe compression of the L1-2 above her previous fusion. It is not clear whether or not the urinary incontinence has anything to do with the nerve irritation however she is having severe symptoms. Dr. Sharma and I have reviewed the films together and discussed options for treatment. Surgically would consider exte nding her fusion up to the T12 segment decompressing L1 to. The main benefit of surgery is preservation of neurologic function and preventing her from developing significant weakness. I discussed precise nature of the surgery including length of the procedure and stay in the hospital and recovery times. Discussed the risks of surgery to include from anesthetic, bleeding, blood loss, infection, adjacent level disease with need for reoperation. After thorough discussion she has agreed to proceed with surgery as outlined above. Will try to get this done in a timely fashion given the severity of the compression is present. History of Present Illness Attending Physician: Katy Grossman MD History of Present Illness Patient is a pleasant 59-year-old female who presented to the emergency room yesterday due to increasing back pain and complaints of urinary incontinence primarily at night. She has history significant for previous lumbar fusions the last 1 being in 2017. She done well after her surgeries without any complications. She states over the past month her pain has been worsening where she has constant pain in the lower portion of back and affects the left greater than right legs. She had an MRI performed 2 days ago and was called and told that she had abnormalities and she go to the emergency room. In the emergency room she did not display any significant weakness on the physician's exam. She did not have a postvoid residual. She was admitted to the hospital for pain control. This morning she states the pain is still present despite using pain medications. She has numbness in the inguinal area. She denies any other numbness, tingling, or paresthesias. Allergies Allergy/AdvReac Type Severity Reaction Status Date / Time hydrocodone Allergy Intermediate ITCHY Verified 01/30/17 12:19 hydromorphone Allergy Intermediate ITCHING Verified 01/30/17 12:19 Penicillins Allergy Intermediate RED DOTS Verified 01/30/17 12:19 AND ITCHY Sulfa (Sulfonamide Allergy Intermediate RED DOTS Verified 01/30/17 12:19 Antibiotics) AND ITCHY Cipro Allergy Unknown PRURITIS Unverified 02/06/17 12:37 PER PCP RECORDS ciprofloxacin [Cipro] Allergy Unknown PRURITIS Unverified 08/20/24 18:36 PER PCP RECORDS metronidazole Allergy Unknown HIVES PER Unverified 02/06/17 12:37 PCP RECORDS morphine Allergy Unknown hives Verified 01/30/17 12:19 moxifloxacin Allergy Unknown HIVES PER Unverified 02/06/17 12:37 PCP RECORDS tramadol Allergy Unknown RASH PER Unverified 02/06/17 12:37 PCP RECORDS Iodinated Contrast Media Allergy Anaphylaxis Verified 08/20/24 18:36 epinephrine AdvReac Unknown MAKES Verified 01/30/17 12:19 HEART RACE vicodine Allergy Intermediate Hives Uncoded 08/20/24 20:25 fentanyl Allergy Unknown Uncoded 08/20/24 20:25 Home Medications Medication Instructions Recorded Confirmed Type acetaminophen 300 mg-codeine 30 mg 1 tab PO Q6H PRN Moderate Pain 08/20/24 08/20/24 History tablet (Scale Score 5-6) albuterol sulfate 90 mcg/actuation 1 inh inhalation Q4H PRN 08/20/24 08/20/24 History aerosol inhaler sob/wheezing cholecalciferol (vitamin D3) 25 50 mcg PO HS 08/20/24 08/20/24 History mcg (1,000 unit) tablet cyanocobalamin (vitamin B-12) 500 1,000 mcg PO HS 08/20/24 08/20/24 History mcg tablet levocetirizine 5 mg tablet 5 mg PO HS 08/20/24 08/20/24 History montelukast 10 mg tablet 10 mg PO HS 08/20/24 08/20/24 History multivitamin 1 tab PO HS 08/20/24 08/20/24 History omeprazole 40 mg capsule,delayed 40 mg PO HS 08/20/24 08/20/24 History release paroxetine HCl 10 mg tablet 10 mg PO HS 08/20/24 08/20/24 History paroxetine HCl 40 mg tablet 40 mg PO HS 08/20/24 08/20/24 History simvastatin 20 mg tablet 20 mg PO HS 08/20/24 08/20/24 History Patient History Medical History Lumbar spinal stenosis Depression with anxiety Tobacco use IBS (irritable bowel syndrome) GERD (gastroesophageal reflux disease) HLD (hyperlipidemia) Surgical History Hx of neck surgery History of dental surgery wisdom tooth extraction Hx of tubal ligation Hx of cholecystectomy Hx of total hysterectomy Hx of sinus surgery History of carpal tunnel surgery Hx of lumbar discectomy History of resection of small bowel History of incisional hernia repair Hx of esophagogastroduodenoscopy Hx of colonoscopy Family History Mother Asthma Coronary heart disease Dyslipidemia Father Cancer Social History Smoking Status: Current every day smoker Tobacco Type: Cigarettes Cigarettes Per Day: 7; Do You Dip or Chew Tobacco: No; Tobacco Cessation Education Requested by Patient: No Hx Alcohol Use: No Hx Substance Use: No Preferred Language: Malawian Communication Ability: Effective Lotus Notes Administrator Required: No Beliefs That Will Affect Care: None Current Living Situation: Family Feels Safe at Home: Yes and No Is there a partner from a previous relationship who is making you feel unsafe now?: No Any Concerns about Your Family Situation: No Would You Like to Speak to Someone About Your Situation: No Safety Concerns: Feels Safe At This Time Assistive Devices: Glasses Physical Exam Physical Exam: On exam she is alert and oriented. She has full strength of both lower extremities. Her strength 5 out of 5 to detailed muscle testing. Sensations intact to light touch proprioception is also intact. She is nontender with internal/external rotation of the hip she has full range of motion of both kn ees. Her cardiovascular exam reveals no gross abnormalities. Her breathing is nonlabored. Her abdomen soft nontender calves are supple and nontender. Visual mejia are grossly intact. Results & Data Vital Signs (Past 12 Hours) Vital Signs Temp Pulse Resp BP BP Pulse Ox O2 Del Method 08/21/24 07:54 37.0 C 78 17 111/71 92 Room Air 08/21/24 00:24 Room Air 08/21/24 00:24 36.8 C 89 16 114/62 96 Room Air 08/20/24 23:00 90 20 112/69 97 Room Air 08/20/24 21:00 80 20 146/78 H 95 Room Air Diagnostic Findings MRI of the lumbar spine from 9 08/19/2024 through [facility] is available for review. This reveals postoperative changes noted from L2-L5 with hardware intact. At L1-2 above the fusion there is significant facet or arthropathy which is producing moderate to severe central stenosis with a superimposed disc herniation more eccentric to the right which is producing severe compression.
--- OUTSIDE RECORDS SUMMARY | 2024-08-21 08:40 | External Medical Summary | Summary of Care ---
Author Name Unknown Organization [facility] Address [address] [place] [address] Phone [phone] Care Team Providers Care Transfer Coordinator Name Role Phone Alexa Martinez MD Primary Care Provider + [phone] Reason for Referral * Precert (Within 10 days (routine)) - Pending Review Specialty Diagnoses / Procedures Referred By Contac t Referred To Contact Radiology Diagnoses Osteoarthritis of spine with radiculopathy, lumbar region Weakness of lower extremity, unspecified laterality Procedures MRI L SPINE WO CONTRAST Alexa Martinez MD [address] [place] [address] Referral ID Status Reason Start Date Expiration Date V isits Requested Visits Authorized [id number] Pending Review 08/04/2024 999 999 Reason for Visit * Reason Comments Acute Encounter Details Date Type Department Care Team (Latest Contact Info) Description 08/04/2024 1:20 PM EDT Telemedicine [facility] [address] [place] [address] Alexa Martinez MD [address] [place] [address] Osteoarthritis of spine with radiculopathy, lumbar region*; Weakness of lower extremity, unspecified laterality; S/P hernia repair; Intertrigo Allergies Active Allergy Reactions Criticality Noted Date Comments Moxifloxacin Hives High 11/04/2014 URTICARIA, HIVES Ciprofloxacin Itching 02/01/2010 Fentanyl Itching 04/04/2018 Altered mental status Metronidazole Hcl Hives 12/12/2007 Iodinated Contrast Media Rash 07/24/2023 Morphine Sulfate 01/08/2011 Hives, black and blue joseph Penicillins Rash 07/14/2003 Sulfa Antibiotics Rash 07/14/2003 Tramadol Rash 12/21/2015 Vicodin 09/19/2006 hives documented as of this encounter (statuses as of 08/04/2024) Medications Medication Sig Dispensed Refills Start Date End Date Status MULTI-VITAMIN/MINERA LS PO TABS 1 tablet by mouth daily Active VITAMIN B-12 500 MCG PO TABS Take 2 Tablets by mouth in the morning. . Active albuterol sulfate (PROVENTIL) (2.5 MG/3ML) 0.083% nebulizer solutionIndications: Wheezing Inhale 1 Vial via nebulizer every 6 hours as needed for Wheezing. 120 Vial 11 08/14/2018 Active Cranberry 1000 MG Oral Capsule Take 1,000 mg by mouth daily. Active Vitamin D (Cholecalciferol) 25 MCG (1000 UT) Oral Capsule Take 2 Capsules by mouth in the morning. 12/26/2020 Active Meclizine HCl 25 MG Oral Tablet (Antivert)Indication s:Vertigo Take 1 Tablet by mouth 3 times a day as needed for Dizziness. 30 Tablet 07/16/2023 Active Albuterol Sulfate HFA 108 (90 Base) MCG/ACT Inhalation Aerosol SolutionIndications: Wheezing,Bronchitis, complicated Inhale 2 Puffs by mouth every 4 hours as needed for Wheezing. 18 g 5 08/30/2023 Active Simvastatin 20 MG Oral Tablet (Zocor)Indications:D yslipidemia, goal to be determined Take 1 Tablet by mouth every evening. 90 Tablet 3 08/30/2023 Active Omeprazole 40 MG Oral Capsule Delayed Release (PriLOSEC)Indication s:Gastroesophageal reflux disease without esophagitis Take 1 Capsule by mouth in the morning. 90 Capsule 3 08/30/2023 Active PARoxetine HCl 40 MG Oral Tablet (pAXil) Take 1 tablet by mouth once daily 90 Tablet 3 10/04/2023 Active Montelukast Sodium 10 MG Oral Tablet (Singulair) Take 1 tablet by mouth once daily 90 Tablet 3 03/04/2024 Active Levocetirizine Dihydrochloride 5 MG Oral TabletIndications:No nallergic rhinitis TAKE 1 TABLET BY MOUTH ONCE DAILY IN THE EVENING 90 Tablet 3 03/04/2024 Active PARoxetine HCl 10 MG Oral Tablet (pAXil)Indications:M oderate episode of recurrent major depressive disorder (HCC) TAKE 1 TABLET BY MOUTH IN THE MORNING, ALONG WITH YOUR 40 MG TABLET FOR A TOTAL DOSE OF 50 MG 90 Tablet 1 06/15/2024 Active Pregabalin 25 MG Oral Capsule (Lyrica)Indications: Osteoarthritis of spine with radiculopathy, lumbar region Take 1 Capsule by mouth in the morning and 1 Capsule at noon and 1 Capsule before bedtime. 90 Capsule 07/08/2024 Active predniSONE 10 MG Oral Tablet (Deltasone) Take 5 tabs for 2 days, 4 tabs for 2 days, 3 tabs for 2 days, 2 tabs for 2 days 1 tab for 2 days 30 Tablet 07/21/2024 Active Acetaminophen-Codein e 300-30 MG Oral TabletIndications:S/ P hernia repair Take 1 Tablet by mouth every 6 hours as needed for Pain, Moderate. 28 Tablet 08/04/2024 Active Nystatin [id number] UNIT/GM External Powder (Nystop)Indications: Intertrigo Apply 1 g topically to affected area in the morning and 1 g at noon and 1 g before bedtime. Apply to skin folds. 30 g 1 08/04/2024 Active Acetaminophen-Codein e 300-30 MG Oral TabletIndications:S/ P hernia repair Take 1 Tablet by mouth every 6 hours as needed for Pain, Moderate. 28 Tablet 03/02/2024 Discontinue d(Refill) documented as of this encounter (statuses as of 08/04/2024) Active Problems Problem Noted Date Diagnosed Date Elevated hemoglobin 03/31/2024 Restless legs syndrome 03/31/2024 Obesity, Class II, BMI 35-39.9, isolated (see ac tual BMI) 02/06/2022 Stress incontinence 04/28/2021 Moderate episode of recurrent major depressive d isorder 12/29/2020 DDD (degenerative disc disease), cervical 2018 Chronic bilateral lower abdominal pain 8 Ventral hernia 12/10/2017 MEDICATION USE AGREEMENT 08/06/2016 Irritable bowel syndrome with diarrhea 6 Thyroid nodule 06/09/2016 Overview: R thyroid nodule biopsied 07/03, pathology benign Osteoarthritis of spine with radiculopathy, lumb ar region 05/02/2016 Lumbar spinal stenosis 05/02/2016 Hypokalemia 12/26/2015 Nonallergic rhinitis 09/19/2006 Tobacco use disorder 09/19/2006 GERD (gastroesophageal reflux disease) Dyslipidemia, goal to be determined Depression with anxiety documented as of this encounter (statuses as of 08/04/2024) Resolved Problems Problem Noted Date Diagnosed Date Resolved Date Food insecurity 10/01/2022 07/04/2023 Overview: Per [facility] Protocol Advanced directives, counseling/discussion 04/28/2021 03/31/2024 Feeling of incomplete bladder emptying 04/28/2021 03/31/2024 Urge incontinence of urine 04/28/2021 0 03/31/2024 Urinary incontinence, nocturnal enuresis 04/28/2021 03/31/2024 COPD, group B, by GOLD 2017 classification 07/26/2020 07/13/2021 Overview: Per COPD GOLD Classification Major depressive disorder, r ecurrent, unspecified 10/22/2019 01/12/2021 Chronic obstructive pulmonary disease 04/24/2019 07/28/2020 Overview: Per COPD GOLD Classification Lumbar disc herniation 05/02/201603/31 Lumbar radiculopathy 05/02/2016 024 Smoking addiction 02/09/2016 02/18/2018 ETD (eustachian tube dysfunction) 02/09/2016 03/31/2024 Seasonal allergies 02/09/2016 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/18/2018 Conjunctivitis 09/19/2006 03/31/2024 Chronic sinusitis 09/19/2006 03/31/2024 Wheezing 09/19/2006 07/13/2021 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 documented as of this encounter (statuses as of 08/04/2024) Immunizations Name Administration Dates Next Due COVID-19 mRNA, LNP-s, No Pre serve, 2-Dose Series (Pfizer) 02/25/2021,02/04/2021 Hepatitis B, 20+ yrs 06/24/2013,03/18/2013,12/23 MMR - Measles/Mumps/Rubella Vaccine 12/23/2012 PPD 12/16/2012 Pneumococcal Conjugate Vacc, 13 Valent (Prevnar) 10/15/2017 Pneumococcal Polysaccharide PPV23 (Pneumovax) 10/02/2011 Seasonal Influenza, PF, 6 M & above, IM , (FluLaval or Fluzone) 08/30/2023,08/31/2022,11/14/2021,09/02,07/31/2019,10/15/2017 Seasonal Influenza, Quadriva lent, No Preserve, IM 09/05/2016 Seasonal Influenza, Trivalen t, (IIV3), PF, (Fluzone) 07/28/2024 Seasonal Influenza, Trivalen t, (IIV3), with Preserv, (Fluzone) 08/04/2013,08/26/2012,09/04/2011,10/17 TDAP (age 10 and older)(Boostrix) 03/09/2023 TDAP, Age 7 and older, IM (Adacel) 10/02/2011 Tetanus Toxid Adsorbed 04/24/2005 Zoster Vaccine Recombinant (Shingrix) 06/15/2023 ,03/09/2023 documented as of this encounter Social History Tobacco Use Types Packs/Day Years Used Date Smoking Tobacco: Every Day Cigarettes 0.3 35 Smokeless Tobacco: Never Comments:passive smoke from Alcohol Use Standard Drinks/Week Comments No 0 (1 standard drink = 0.6 oz pur e alcohol) PHQ-2 Answer Date Recorded PHQ Adult Total Score 0 08/31/2022 Hunger Vital Sign Answer Date Recorded Within the past 12 months, y ou worried that your food would run out before you got the money to buy more. Never true 06/17/20 23 Within the past 12 months, t he food you bought just didn't last and you didn't have money to get more. Never true 06/17/2023 Childcare Answer Date Recorded Do you feel overwhelmed with taking care of a child, family member or friend? No 06/17/2023 Does your family need help f inding childcare? (Household - for ages 0-17 years) Not on file 06/17/2023 Clothing Answer Date Recorded Have you been unable to get clothing when it was really needed? No 06/17/2023 Is your family able to get c lothes or diapers when needed? (Household - for ages 0-17 years) Not on file 06/17/2023 Personal Safety Answer Date Recorded Do you feel unsafe or have concerns for your saf ety? No 06/17/2023 Do you have concerns for you r family's safety? (Household - for ages 0-17 years) Not on file 06/17/2023 Utilities Answer Date Recorded Do you have trouble paying y our heating, water, or electric bill? (Adult - for ages 18 years and over) Not on file 06/18/2024 Is your family able to pay t he heat, water, or electric bill? (Household - for ages 0-17 years) Not on file 06/18/2024 Does your family have access to good internet? (Household - for ages 0-17 years) Not on file 06/18/2024 Employment Status Answer Date Recorded Are you unemployed or without regular income? No 06/17/2023 Does the household have a re lar source of income? (Household - for ages 0-17 years) Not on file 06/17/2023 Social Connections Answer Date Recorded How often do you feel lonely or isolated from those around you? (Adult - for ages 18 years and over) Not on file 06/18/2024 Financial Resource Strain Answer Date R ecorded Do you have any trouble payi ng for your medications, or do you think you might in the future? No 06/17/2023 Does your family have troubl e paying for medicine? (Household - for ages 0-17 years) Not on file 06/17/2023 Transportation Needs Answer Date Record ed READ ONLY Do you have troubl e getting a ride to medical visits or work? Never True 06/17/2023 Does your family have a hard time getting a ride to doctors visits? (Household - for ages 0-17 years) Not on file 06/17/2023 Has lack of transportation k ept you from medical appointments, meetings, work, or from getting things needed for daily living? Check all that apply. (Adult - for ages 18 years and over) Not on file 06/17/2023 Do you (or your family) have trouble finding or paying for a ride (transportation)? (Household - for ages 0-17 years) Not on file 06/17/2023 Housing Stability Answer Date Recorded Do you currently live in a s helter or have no steady place to sleep at night? No 06/17/2023 READ ONLY Do you think you a re at risk of becoming homeless? No 06/17/2023 Does your family worry about paying for your home or becoming homeless? (Household - for ages 0-17 years) Not on file 0 06/17/2023 Are you homeless or worried that you might be in the future? (Adult - for ages 18 years and over) Not on file Are you (or your family) kim eless or worried that you might be in the future? (Household - for ages 0-17 years) Not on file Food Insecurity Answer Date Recorded Do you need food for this week? No 06/17/2023 Are you able to get enough f ood for your family? (Household - for ages 0-17 years) Not on file 06/17/2023 Does your family need food t his week? (Household - for ages 0-17 years) Not on file 06/17/2023 Do you always have enough fo od for your family? (Household - for ages 0-17 years) Not on file 06/17/2023 Sex and Gender Information Value Date Recorded Sex Assigned at Female 02/19/2019 11:31 AM EDT Gender Identity Female 02/19/2019 11:31 AM EDT Sexual Orientation Straight 02/19/2019 11 :31 AM EDT Job Start Date Occupation Industry Not on file Not on file Not on file documented as of this encounter Functional Status Functional Status Response Date of Assess ment Are you deaf or do you have serious difficulty h earing? No 12/07/2017 Are you blind or do you have serious difficulty seeing, even when wearing glasses? No 12/07/2017 Do you have serious difficul ty walking or climbing stairs? (5 years old or older) No 12/07/2017 Do you have difficulty dress ing or bathing? (5 years old or older) No 12/07/2017 Because of a physical, menta l, or emotional condition, do you have difficulty doing errands alone such as visiting a doctor s office or shopping? (15 years old or older) No 12/07/19 18 Cognitive Status Response Date of Assessm ent Because of a physical, menta l, or emotional condition, do you have serious difficulty concentrating, remembering, or making decisions? (5 years old or older) No 12/07/2017 documented as of this encounter Progress Notes * Alexa Martinez MD - 08/04/2024 1:09 PM EDT Images from the original note were not included. History of Present Illness Ariana Tuttle is a 59 year old female that presents for No chief complaint on file. Brief Clinical History Ms. Tuttle is a 59 year old female last seen in [facility] on 07/08/2024 by Mandy Sierra She has a h/o the following chronic conditions indicated on the problem list: Chronic Conditions Elevated hemoglobin (HCC) MEDICATION USE AGREEMENT Patient is here to discuss pain management. Worsening bilat LE pain down to the calves and now weakness. Lyrica not helpful. Continues with conservative measures but not helpful. We discussed updatedMRI and Emg and patient agreeable Started with rash between breasts, read and bilat. Physical Exam There were no vitals filed for this visit. BP Readings from Last 3 Encounters: 07/08/24 128/82 06/24/24 147/77 05/10/24 132/64 There were no vitals taken for this visit. General: alert, healthy, and no distress I have reviewed the following results: l spine xray and BMP Assessment and Plan Osteoarthritis of spine with radiculopathy, lumbar region (Primary) - MRI L SPINE WO CONTRAST; Future; Expected date: 08/04/2024 - EMG Weakness of lower extremity, unspecified laterality - MRI L SPINE WO CONTRAST; Future; Expected date: 08/04/2024 - EMG S/P hernia repair - Acetaminophen-Codeine 300-30 MG Oral Tablet; Take 1 Tablet by mouth every 6 hours as needed for Pain, Moderate. Intertrigo - Nystatin [id number] UNIT/GM External Powder (Nystop); Apply 1 g topically to affected area in the morning and 1 g at noon and 1 g before bedtime. Apply to skin folds. Follow Up: Return if symptoms worsen or fail to improve. Time: I spent a total of 10-19 minutes (exact time 18 mins) on the date of service in preparation, delivery, and documentation of the care provided to Ariana Tuttle excluding any time spent in the performance of separately billed services. Telemedicine: Patient location: HOME. I was in a hospital or clinic location. After connecting through televideo,patient was verified with two unique identifiers. Patient (or authorized legal compliance representative) was then informed that this was a Telemedicine visit and being conducted confidentially over secure lines. Methods to assure confidentiality were taken. Patient acknowledged consent and understanding of pr ivacy and security of the Telemedicine visit. The patient agreed to participate. documented in this encounter Plan of Treatment Upcoming Encounters Date Type Department Care Team (Late st Contact Info) Description 12/09/2024 2:00 PM EST Office Visit [facility] [address] [place] [address] Alexa Martinez MD [address] [place] [address] Scheduled Orders Name Type Priority Associated Diagnoses Orde r Schedule MRI L SPINE WO CONTRAST Medical Imaging Routine Osteoarthritis of spine with radiculopathy, lumbar region Weakness of lower extremity, unspecified laterality Expected: 08/04/2024, Expires: 09/03/2025 Scheduled Procedures Name Priority Associated Diagnoses Date/Ti me LAMINOPLASTY POSTERIOR CERVICAL Cervical spinal stenosis LAMINOPLASTY POSTERIOR CERVI CHRIS RECONSTRUCTION POST ELEMENTS Cervical spinal stenosis LAMINECTOMY FACETECTOMY AND FORAMINOTOMY POSTERIOR CERVICAL Cervical spinal stenosis LAMINECTOMY FACETECTOMY AND FORAMINOTOMY ADDITIONAL LEVELS Cervical spinal stenosis Health Maintenance Due Date Last Done Comments Cologuard 2008 Fecal Occult Blood Test 2008 Sigmoidoscopy 2008 Depression Monitoring 08/31/2023 08/31/2022 COVID-19 Vaccine ( season) 2024 02/25/2021, 02/04/2021 Mammogram 09/02/2024 09/02/2023, 08/18, 05/10/2020, Additional history exists Diabetes Screening 03/31/2027 03/31/2024, 1 12/22/2022, 10/21/2023, Additional history exists Pneumococcal Vaccine: Pediatrics (0 to 5 Years) and At-Risk Patients (6 to 64 Years) (3 of 3 - PPSV23 or PCV20) 2028 10/15/2017, 10/02/2011 Colonoscopy 01/08/2029 01/08/2019, 12/20, 10/08/2016, Additional history exists Colorectal Cancer Screening 01/08/2029 Lipid Panel 03/31/2029 03/31/2024, 05/20, 08/31/2022, Additional history exists DTap/Tdap Vaccines (3 - Td or Tdap) 03/09/2033 03/09/2023, 10/02/2011 Hepatitis B Vaccine Completed 06/24/2013, 03/18/2013, 12/23/2012 Zoster Vaccines Completed 06/15/2023, 03/09/2023 Influenza Vaccine (FLU shot) Completed 08/2024, 08/30/2023, 08/31/2022, Additional history exists HPV (Gardasil) Vaccine Aged Out No lo nger eligible based on patient's age to complete this topic MENINGOCOCCAL (MENACTRA/MENVEO) Aged Out No longer eligible based on patient's age to complete this topic documented as of this encounter Medical Devices Implanted Type Area Crinkling Machine Operator Device Identifier Shelf Expiration Date Model / Serial / Lot Mesh 10 X 14 [id number] - [id number] Implanted:Qty: 1 on 12/06/2017 by José Miguel Ruiz [place] [facility] [place] Abdomen GETINGE : MAQUET 04/11/2022 [id number] / / [id number] documented as of this encounter Visit Diagnoses Diagnosis Osteoarthritis of spine with radiculopathy, lumbar region- Primary Weakness of lower extremity, unspecified laterality S/P hernia repair Other postprocedural status Intertrigo Other specified erythematous condition documented in this encounter Advance Directives * Full Code (Latest Code Status on File) Date Activated Date Inactivated Comments 12/06/2017 9:19 AM 12/10/2017 6:33 PM Question Answer Comments Discussion of Advance Directives occurred with: Not Discussed * Full Code Date Activated Date Inactivated Comments 12/06/2017 7:45 AM 12/06/2017 9:19 AM Question Answer Comments Discussion of Advance Directives occurred with: Not Discussed Does the patient have a Living Will? No Does the patient have Health Care Power of Attor ayse? No Care Teams Transfer Coordinator Relationship Specialty Start Date End Date Alexa Martinez MD [address] [place] [address] PCP - General Family Medicine 03/31/24 documented as of this encounter
--- OUTSIDE RECORDS SUMMARY | 2024-08-21 08:40 | External Medical Summary | Summary of Care ---
Author Name Unknown Organization [facility] Address [address] [address] Phone [phone] Care Team Providers Care Assessment Services Manager Name Role Phone Alexa Martinez MD Primary Care Provider Encounter Details Date Type Department Care Team (Latest Contact Info) Description 07/09/2024 12:55 PM EDT - 07/09/2024 11:59 PM EDT Hospital Encounter [facility] [address] [place] [address] [place] [address] Arrived Discharge Disposition: Home - Self Care Allergies Active Allergy Reactions Criticality Noted Date Comments Moxifloxacin Hives High 11/04/2014 URTICARIA, HIVES Ciprofloxacin Itching 02/01/2010 Fentanyl Itching 04/04/2018 Altered mental status Metronidazole Hcl Hives 12/12/2007 Iodinated Contrast Media Rash 07/24/2023 Morphine Sulfate 01/08/2011 Hives, black and blue joseph Penicillins Rash 07/14/2003 Sulfa Antibiotics Rash 07/14/2003 Tramadol Rash 12/21/2015 Vicodin 09/19/2006 hives documented as of this encounter (statuses as of 07/10/2024) Medications Medication Sig Dispensed Refills Start Date End Date Status MULTI-VITAMIN/MINERALS PO TABS 1 tablet by mouth daily Active VITAMIN B-12 500 MCG PO TABS Take 2 Tablets by mouth in the morning. . Active albuterol sulfate (PROVENTIL) (2.5 MG/3ML) 0.083% nebulizer solutionIndications:Wh eezing Inhale 1 Vial via nebulizer every 6 hours as needed for Wheezing. 120 Vial 11 08/14/2018 Active Cranberry 1000 MG Oral Capsule Take 1,000 mg by mouth daily. Active Vitamin D (Cholecalciferol) 25 MCG (1000 UT) Oral Capsule Take 2 Capsules by mouth in the morning. 12/26/2020 Active Meclizine HCl 25 MG Oral Tablet (Antivert)Indications: Vertigo Take 1 Tablet by mouth 3 times a day as needed for Dizziness. 30 Tablet 07/16/2023 Active Albuterol Sulfate HFA 108 (90 Base) MCG/ACT Inhalation Aerosol SolutionIndications:Wh eezing,Bronchitis, complicated Inhale 2 Puffs by mouth every 4 hours as needed for Wheezing. 18 g 5 08/30/2023 Active Simvastatin 20 MG Oral Tablet (Zocor)Indications:Dys lipidemia, goal to be determined Take 1 Tablet by mouth every evening. 90 Tablet 3 08/30/2023 Active Omeprazole 40 MG Oral Capsule Delayed Release (PriLOSEC)Indications: Gastroesophageal reflux disease without esophagitis Take 1 Capsule by mouth in the morning. 90 Capsule 3 08/30/2023 Active PARoxetine HCl 40 MG Oral Tablet (pAXil) Take 1 tablet by mouth once daily 90 Tablet 3 10/04/2023 Active Acetaminophen-Codeine 300-30 MG Oral TabletIndications:S/P hernia repair Take 1 Tablet by mouth every 6 hours as needed for Pain, Moderate. 28 Tablet 03/02/2024 Active Montelukast Sodium 10 MG Oral Tablet (Singulair) Take 1 tablet by mouth once daily 90 Tablet 3 03/04/2024 Active Levocetirizine Dihydrochloride 5 MG Oral TabletIndications:Vickie llergic rhinitis TAKE 1 TABLET BY MOUTH ONCE DAILY IN THE EVENING 90 Tablet 3 03/04/2024 Active PARoxetine HCl 10 MG Oral Tablet (pAXil)Indications:Mod erate episode of recurrent major depressive disorder (HCC) TAKE 1 TABLET BY MOUTH IN THE MORNING, ALONG WITH YOUR 40 MG TABLET FOR A TOTAL DOSE OF 50 MG 90 Tablet 1 06/15/2024 Active Pregabalin 25 MG Oral Capsule (Lyrica)Indications:Os teoarthritis of spine with radiculopathy, lumbar region Take 1 Capsule by mouth in the morning and 1 Capsule at noon and 1 Capsule before bedtime. 90 Capsule 07/08/2024 Active documented as of this encounter (statuses as of 07/10/2024) Active Problems Problem Noted Date Diagnosed Date [...] as of this encounter (statuses as of 07/10/2024) Resolved Problems Problem Noted Date Diagnosed Date [...] as of this encounter (statuses as of 07/10/2024) Immunizations Name Administration Dates Next Due COVID-19 mRNA, LNP-s, No Pre serve, 2-Dose Series ([place]) 02/25/2021,02/04/2021 Hepatitis B, 20+ yrs 06/24/2013,03/18/2013,12/23 MMR - Measles/Mumps/Rubella Vaccine 12/23/2012 PPD 12/16/2012 Pneumococcal Conjugate Vacc, 13 Valent (Prevnar) 10/15/2017 Pneumococcal Polysaccharide PPV23 (Pneumovax) 10/02/2011 Seasonal Influenza, PF, 6 M & above, IM , (FluLaval or Fluzone) 08/30/2023,08/31/2022,11/14/2021,09/02,07/31/2019,10/15/2017 Seasonal Influenza, Quadriva lent, No Preserve, IM 09/05/2016 Seasonal Influenza, Split, I IV3, With Preserve, Inj 08/04/2013,08/26/2012,09/04/2011,10/17 TDAP (age 10 and older)(Boostrix) 03/09/2023 [...] 06/17/2023 Does the household have a re gular source of income? (Household - for ages [...] No 12/07/2017 documented as of this encounter Plan of Treatment Upcoming Encounters Date Type Department Care Team (Late st Contact Info) Description 12/09/2024 2:00 PM EST Office Visit [facility] [address] [place] [id number] Alexa Martinez MD [address] [place] [id number] Scheduled Procedures Name Priority Associated Diagnoses Date/Ti me LAMINOPLASTY POSTERIOR CERVICAL Cervical spinal stenosis LAMINOPLASTY POSTERIOR CERVI CHRIS RECONSTRUCTION POST ELEMENTS Cervical spinal stenosis LAMINECTOMY FACETECTOMY AND FORAMINOTOMY POSTERIOR CERVICAL Cervical spinal stenosis LAMINECTOMY FACETECTOMY AND FORAMINOTOMY ADDITIONAL LEVELS Cervical spinal stenosis Health Maintenance Due Date Last Done Comments Cologuard 2008 Fecal Occult Blood Test 2008 Sigmoidoscopy 2008 COVID-19 Vaccine ( season) 2023 02/25/2021, 02/04/2021 Depression Monitoring 08/31/2023 08/31/2022 Influenza Vaccine (FLU shot) (#1) 2024 08/30/2023, 08/31/2022, 11/14/2021, Additional history exists Mammogram 09/02/2024 09/02/2023, 08/18, 05/10/2020, Additional history exists Diabetes Screening 03/31/2027 03/31/2024, 1 12/22/2022, 10/21/2023, Additional history exists Pneumococcal Vaccine: Pediatrics (0 to 5 Years) and At-Risk Patients (6 to 64 Years) (3 of 3 - PPSV23 or PCV20) 2028 10/15/2017, 10/02/2011 Colonoscopy 01/08/2029 01/08/2019, 12/20, 10/08/2016, Additional history exists Colorectal Cancer Screening 01/08/2029 Lipid Panel 03/31/2029 03/31/2024, 05/20, 08/31/2022, Additional history exists DTaP,Tdap,and Td Vaccines (3 - Td or Tdap) 03/09/2033 03/09/2023, 10/02/2011 Hepatitis B Vaccine Completed 06/24/2013, 03/18/2013, 12/23/2012 Zoster Vaccines Completed 06/15/2023, 03/09/2023 HPV (Gardasil) Vaccine Aged Out No lo nger eligible based on patient's age to complete this topic MENINGOCOCCAL (MENACTRA/MENVEO) Aged Out No longer eligible based on patient's age to complete this topic documented as of this encounter Medical Devices Implanted Type Area Paint Brush Maker Device Identifier Shelf Expiration Date Model / Serial / Lot Mesh 10 X 14 [id number] - [id number] Implanted:Qty: 1 on 12/06/2017 by José Miguel Ruiz MD at [place] [facility] [place]A: Abdomen GETINGE : MAQUET 04/11/2022 [id number] / / [id number] documented as of this encounter Procedures Procedure Name Priority Date/Time Associated Diagnosis Comments XR L SPINE COMPLETE Routine 07/09/2024 1 :05 PM EDT Lumbar pain documented in this encounter Results * XR L SPINE COMPLETE (07/09/2024 1:05 PM EDT) Anatomical Region Laterality Modality Vertebra, Lspine Digital Radiogr aphy 07/09/2024 2:29 PM EDT Impressions 07/09/2024 2:27 PM EDT IMPRESSION Postsurgical change and degenerative change. Narrative 07/09/2024 2:27 PM EDT EXAM XR L SPINE COMPLETE-07/09/2024 1:05 pm HISTORY lumbar pain COMPARISON Lumbar spine dated 05/10/2024; lumbar spine dated 04/20/2024; lumbar spine dated 04/04/2022 and prior studies TECHNIQUE AP, lateral, lateral flexion, lateral extension FINDINGS Five non rib-bearing vertebrae are again felt present. The lumbar vertebral body stature appears stable and maintained without demonstrable acute fracture or ossific destructive lesion. Limited visualized lumbar osseous pedicles appear intact. Postsurgical changes redemonstrated with paired screws seen at L2 vertebral level through L5 vertebral level with interconnecting rods. Position appears stable. Intervertebral disc spacer is present at L3-L4. There is multilevel degenerative change. Small osteophytes are present at several levels including visualized lower thoracic spine. There is intervertebral disc space narrowing present particularly at L3-L4 through L5-S1. There is a slight anterolisthesis L4 on L5 and retrolisthesis L3 on L4 and L2 on L3. This appears stable on flexion extension views. Limited visualized portions sacroiliac joints grossly maintained. Visualized bowel pattern nonspecific. Vascular calcification is seen within portions of abdominal aorta and branch vessels. Both tapia not clearly delineated. Surgical clips seen right upper quadrant and pelvis. Procedure Note Chintan Beaulieu MD - 07/09/2024 EXAM XR L SPINE COMPLETE-07/09/2024 1:05 pm HISTORY lumbar pain COMPARISON Lumbar spine dated 05/10/2024; lumbar spine dated 04/20/2024; lumbar spinedated 04/04/2022 and prior studies TECHNIQUE AP, lateral, lateral flexion, lateral extension FINDINGS Five non rib-bearing vertebrae are again felt present. The lumbarvertebral body stature appears stable and maintained without demonstrableacute fracture or ossific destructive lesion. Limited visualized lumbarosseous pedicles appear intact. Postsurgical changes redemonstrated with paired screws seen at [id number] level through L5 vertebral level with interconnecting rods.Position appears stable. Intervertebral disc spacer is present atL3-L4. There is multilevel degenerative change. Small osteophytes are present atseveral levels including visualized lower thoracic spine. There isintervertebral disc space narrowing present particularly at L3-L4 throughL5-S1. There is a slight anterolisthesis L4 on L5 and retrolisthesis L3 on L4 andL2 on L3. This appears stable on flexion extension views. Limited visualized portions sacroiliac joints grossly maintained. Visualized bowel pattern nonspecific. Vascular calcification is seen within portions of abdominal aorta andbranch vessels. Both tapia not clearly delineated. Surgical clips seen right upper quadrant and pelvis. IMPRESSION IMPRESSION Postsurgical change and degenerative change. [facility] documented in this encounter Advance Directives * [...] patient have Health Care Power of Attor yase? No Care Teams Assessment Services Manager Relationship Specialty Start Date End Date Alexa Martinez MD [address] [place] [id number] PCP - General Family Medicine 03/31/24 documented as of this encounter
--- OUTSIDE RECORDS SUMMARY | 2024-08-21 08:40 | External Medical Summary | Summary of Care ---
Author Name Unknown Organization [facility] Address [address] [place] [address] Phone [phone] Care Team Providers Care [employer] Name Role Phone Alexa Martinez MD Primary Care Provider + [phone] Reason for Visit * Reason Onset Date Comments Med Request 07/21/2024 Encounter Details Date Type Department Care Team (Late st Contact Info) Description 07/21/2024 Telephone [facility] [address] [place] [phone] Alexa Martinez MD [address] [place] [address] Med Request Allergies Active Allergy Reactions Criticality Noted Date Comments Moxifloxacin Hives High 11/04/2014 URTICARIA, HIVES Ciprofloxacin Itching 02/01/2010 Fentanyl Itching 04/04/2018 Altered mental status Metronidazole Hcl Hives 12/12/2007 Iodinated Contrast Media Rash 07/24/2023 Morphine Sulfate 01/08/2011 Hives, black and blue joseph Penicillins Rash 07/14/2003 Sulfa Antibiotics Rash 07/14/2003 Tramadol Rash 12/21/2015 Vicodin 09/19/2006 hives documented as of this encounter (statuses as of 07/21/2024) Medications Medication Sig Dispensed Refills Start Date [...] for 2 days 30 Tablet 07/21/2024 Active documented as of this encounter (statuses as of 07/21/2024) Active Problems Problem Noted Date Diagnosed Date [...] as of this encounter (statuses as of 07/21/2024) Resolved Problems Problem Noted Date Diagnosed Date [...] as of this encounter (statuses as of 07/21/2024) Immunizations Name Administration Dates Next Due COVID-19 mRNA, LNP-s, No Pre serve, 2-Dose Series (AdsIt) 02/25/2021,02/04/2021 Hepatitis B, 20+ yrs 06/24/2013,03/18/2013,12/23 MMR - Measles/Mumps/Rubella Vaccine 12/23/2012 PPD 12/16/2012 Pneumococcal Conjugate Vacc, 13 Valent (Prevnar) 10/15/2017 Pneumococcal Polysaccharide PPV23 (Pneumovax) 10/02/2011 Seasonal Influenza, PF, 6 M & above, IM , (FluLaval or Fluzone) 08/30/2023,08/31/2022,11/14/2021,09/02,07/31/2019,10/15/2017 Seasonal Influenza, Quadriva lent, No Preserve, IM 09/05/2016 Seasonal Influenza, Trivalen t, (IIV3), with Preserv, [...] No 12/07/2017 documented as of this encounter Miscellaneous Notes * Telephone Encounter - Alexa Martinez MD - 07/21/2024 1:21 PM EDT Meds sent to pharmacy Pharmacy Selected: [facility] [address] Medication Orders Placed This Encounter Medications predniSONE 10 MG Oral Tablet (Deltasone) Sig: Take 5 tabs for 2 days, 4 tabs for 2 days, 3 tabs for 2 days, 2 tabs for 2 days 1 tab for 2 days Dispense: 30 Tablet Refill: 0 * Telephone Encounter - Marley Willson CCMA - 07/21/2024 1:10 PM EDT Pt is here today and is requesting prednisone for pain that she has been experiencing. States that she has had this pain in the past and she was prescribed prednisone. Pt is requesting refill of thatuntil appt is rescheduling. Pt was scheduled for video this morning but never received a link. Please advise. documented in this encounter Plan of Treatment Upcoming Encounters Date Type Department Care Team (Late st Contact Info) Description 08/04/2024 1:20 PM EDT Telemedicine [facility] [address] [place] [phone] Alexa Martinez MD [address] [place] [address] 12/09/2024 2:00 PM EST Office Visit [facility] [address] [place] [address] Alexa Martinez MD [address] [place] [address] Scheduled Procedures Name Priority Associated Diagnoses Date/Ti [...] COVID-19 Vaccine ( season) 2024 02/25/2021, 02/04/2021 Influenza Vaccine (FLU shot) (#1) 2024 08/30/2023, [...] this encounter Medical Devices Implanted Type Area Resin Painter Device Identifier Shelf Expiration Date Model / Serial / Lot Mesh 10 X 14 [id number] - [id number] Implanted:Qty: 1 on 12/06/2017 [place] José Miguel [place] [facility] [place] Abdomen GETINGE : MAQUET 04/11/2022 [id number] / / [id number] documented as of this encounter Advance Directives * Full Code [...] Power of Attor ayse? No Care Teams [employer] Relationship Specialty Start Date End Date Alexa Martinez MD [address] [place] [address] PCP - General Family Medicine 03/31/24 documented as of this encounter
--- OUTSIDE RECORDS SUMMARY | 2024-08-21 08:40 | External Medical Summary | Summary of Care ---
Author Name Unknown Organization [facility] Address [address] [place] [address] Phone [phone] Care Team Providers Care Construction Supervisor Name Role Phone Lambert Martinez MD Primary Care Provider + [phone] Reason for Visit * Reason Comments eRx-Medication Refill Encounter Details Date Type Department Care Team (Late st Contact Info) Description 08/14/2024 Refill [facility] [address] [place] [phone] Martine Garcia MD [address] [facility] [place] [address] Encounter for long-term (current) use of medications*; Dyslipidemia, goal to be determined; Gastroesophageal reflux disease without esophagitis Allergies Active Allergy Reactions Criticality Noted Date Comments Moxifloxacin Hives High 11/04/2014 URTICARIA, HIVES Ciprofloxacin Itching 02/01/2010 Fentanyl Itching 04/04/2018 Altered mental status Metronidazole Hcl Hives 12/12/2007 Iodinated Contrast Media Rash 07/24/2023 Morphine Sulfate 01/08/2011 Hives, black and blue joseph Penicillins Rash 07/14/2003 Sulfa Antibiotics Rash 07/14/2003 Tramadol Rash 12/21/2015 Vicodin 09/19/2006 hives documented as of this encounter (statuses as of 08/16/2024) Medications Medication Sig Dispensed Refills Start Date End Date Status MULTI-VITAMIN/MINERA LS PO TABS 1 tablet by mouth daily Active VITAMIN B-12 500 MCG PO TABS Take 2 Tablets by mouth in the morning. . Active albuterol sulfate (PROVENTIL) (2.5 MG/3ML) 0.083% nebulizer solutionIndications: Wheezing Inhale 1 Vial via nebulizer every 6 hours as needed for Wheezing. 120 Vial 11 8 Active Cranberry 1000 MG Oral Capsule Take 1,000 mg by mouth daily. Active Vitamin D (Cholecalciferol) 25 MCG (1000 UT) Oral Capsule Take 2 Capsules by mouth in the morning. 1 Active Meclizine HCl 25 MG Oral Tablet (Antivert)Indication s:Vertigo Take 1 Tablet by mouth 3 times a day as needed for Dizziness. 30 Tablet 3 Active Albuterol Sulfate HFA 108 (90 Base) MCG/ACT Inhalation Aerosol SolutionIndications: Wheezing,Bronchitis, complicated Inhale 2 Puffs by mouth every 4 hours as needed for Wheezing. 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 90 Capsule 4 Active predniSONE 10 MG Oral Tablet (Deltasone) Take 5 tabs for 2 days, 4 tabs for 2 days, 3 tabs for 2 days, 2 tabs for 2 days 1 tab for 2 days 30 Tablet 4 Active Acetaminophen-Codein e 300-30 MG Oral TabletIndications:S/ P hernia repair Take 1 Tablet by mouth every 6 hours as needed for Pain, Moderate. 28 Tablet 4 Active Nystatin 678760 UNIT/GM External Powder (Nystop)Indications: Intertrigo Apply 1 g topically to affected area in the morning and 1 g at noon and 1 g before bedtime. Apply to skin folds. 30 g 1 4 Active LORazepam 0.5 MG Oral Tablet (Ativan) 1-2 tab half hour before procedure 4 Tablet 4 Active Simvastatin 20 MG Oral Tablet (Zocor)Indications:D yslipidemia, goal to be determined TAKE 1 TABLET BY MOUTH ONCE DAILY IN THE EVENING 90 Tablet 2 4 Active Omeprazole 40 MG Oral Capsule Delayed Release (PriLOSEC)Indication s:Gastroesophageal reflux disease without esophagitis Take 1 capsule by mouth in the morning 90 Capsule 2 4 Active Simvastatin 20 MG Oral Tablet (Zocor)Indications:D yslipidemia, goal to be determined Take 1 Tablet by mouth every evening. 90 Tablet 3 3 08/16/20 24 Discontinued Omeprazole 40 MG Oral Capsule Delayed Release (PriLOSEC)Indication s:Gastroesophageal reflux disease without esophagitis Take 1 Capsule by mouth in the morning. 90 Capsule 3 3 08/16/20 24 Discontinued documented as of this encounter (statuses as of 08/16/2024) Active Problems Problem Noted Date Diagnosed Date [...] as of this encounter (statuses as of 08/16/2024) Resolved Problems Problem Noted Date Diagnosed Date [...] as of this encounter (statuses as of 08/16/2024) Immunizations Name Administration Dates Next Due COVID-19 mRNA, LNP-s, No Pre serve, 2-Dose Series ([employer]) 02/25/2021,02/04/2021 Hepatitis B, 20+ yrs 06/24/2013,03/18/2013,12/23 MMR [...] the money to buy more. Never true 08/04/20 24 Within the past 12 months, t he food you bought just didn't last and you didn't have money to get more. Never true 08/04/2024 Childcare Answer Date Recorded Do you feel overwhelmed with taking care of a child, family member or friend? No 08/04/2024 Does your family need help f inding childcare? (Household - for ages 0-17 years) Not on file 08/04/2024 Clothing Answer Date Recorded Have you been unable to get clothing when it was really needed? No 08/04/2024 Is your family able to get c lothes or diapers when needed? (Household - for ages 0-17 years) Not on file 08/04/2024 Personal Safety Answer Date Recorded Do you feel unsafe or have concerns for your saf ety? No 08/04/2024 Do you have concerns for you r family's safety? (Household - for ages 0-17 years) Not on file 08/04/2024 Utilities Answer Date Recorded Do you have trouble paying y our heating, water, or electric bill? No 08/04/2024 Is your family able to pay t he heat, water, or electric bill? (Household - for ages 0-17 years) Not on file 08/04/2024 Does your family have access to good internet? (Household - for ages 0-17 years) Not on file 08/04/2024 Employment Status Answer Date Recorded Are you unemployed or without regular income? No 08/04/2024 Does the household have a re lar source of income? (Household - for ages 0-17 years) Not on file 08/04/2024 Social Connections Answer Date Recorded How often do you feel lonely or isolated from th ose around you? Never 08/04/2024 Financial Resource Strain Answer Date R ecorded Do you have any trouble payi ng for your medications, or do you think you might in the future? No 08/04/2024 Does your family have troubl e paying for medicine? (Household - for ages 0-17 years) Not on file 08/04/2024 Transportation Needs Answer Date Record ed Do you have trouble getting a ride to medical visits or work? (Adult - for ages 18 years and over) Not on file 08/04/2024 Does your family have a hard time getting a ride to doctors visits? (Household - for ages 0-17 years) Not on file 08/04/2024 Has lack of transportation k ept you from medical appointments, meetings, work, or from getting things needed for daily living? Check all that apply. No 08/04/2024 Do you (or your family) have trouble finding or paying for a ride (transportation)? (Household - for ages 0-17 years) Not on file 08/04/2024 Housing Stability Answer Date Recorded Do you currently live in a s helter or have no steady place to sleep at night? No 08/04/2024 Do you think you are at risk of becoming homeless? (Adult - for ages 18 years and over) Not on file 08/04/2024 Does your family worry about paying for your home or becoming homeless? (Household - for ages 0-17 years) Not on file 0 08/04/2024 Are you homeless or worried that you might be in the future? No 08/04/2024 Are you (or your family) kim eless or worried that you might be in the future? (Household - for ages 0-17 years) Not on file Food Insecurity Answer Date Recorded Do you need food for this week? No 08/04/2024 Are you able to get enough f ood for your family? (Household - for ages 0-17 years) Not on file 08/04/2024 Does your family need food t his week? (Household - for ages 0-17 years) Not on file 08/04/2024 Do you always have enough fo od for your family? (Household - for ages 0-17 years) Not on file 08/04/2024 Sex and Gender Information Value Date Recorded [...] encounter Miscellaneous Notes * Telephone Encounter - Lore Reyes [facility] - 08/16/2024 1:26 PM EDTSigned Prescriptions: Disp Refills Simvastatin 20 MG Oral Tablet (Zocor) 90 Tab*2 Sig: TAKE 1 TABLET BY MOUTH ONCE DAILY IN THE EVENINGAuthorizing Provider: LAMBERT MARTINEZ User: LORE REYES Omeprazole 40 MG Oral Capsule Delayed Rele*90 Cap*2 Sig: Take 1 capsule by mouth in the mo rningAuthorizing Provider: LAMBERT MARTINEZ User: LORE REYES documented in this encounter Plan of Treatment Upcoming Encounters Date Type Department Care Team (Late st Contact Info) Description 08/19/2024 5:00 PM EDT Appointment Radiology, [address] [address] 09/03/2024 1:25 PM EDT NeuroDiagnostic Study Neurophysiology, [address] [address] Miguel Cuello, [address] [place] [address] 12/09/2024 2:00 PM EST Office Visit [facility] [address] [place] [phone] Lambert Martinez MD [address] [place] [address] Scheduled Orders Name Type Priority Associated Diagnoses Orde r Schedule VITAMIN B12 Lab Routine Encounter for long-term (current) use of medications Expected: 10/20/2024 (Approximate), Expires: 08/16/2025 MAGNESIUM Lab Routine Encounter for long-term (current) use of medications Expected: 10/20/2024 (Approximate), Expires: 08/16/2025 Scheduled Procedures Name Priority Associated Diagnoses Date/Ti [...] this encounter Medical Devices Implanted Type Area Internal Combustion Engine Assembler Device Identifier Shelf Expiration Date Model / Serial / Lot Mesh 10 X 14 [id number] - [id number] Implanted:Qty: 1 on 12/06/2017 by José Miguel Ruiz MD at OR [facility] N/A: Abdomen GETINGE : DEE 04/11/2022 [id number] documented as of this encounter Visit Diagnoses Diagnosis Encounter for long-term (current) use of medications- Primary Encounter for long-term (current) use of other medications Dyslipidemia, goal to be determined Other and unspecified hyperlipidemia Gastroesophageal reflux disease without esophagitis Esophageal reflux documented in this encounter Advance Directives * [...] Power of Attor ayse? No Care Teams Construction Supervisor Relationship Specialty Start Date End Date Lambert Martinez MD [address] [place] [address] PCP - General Family Medicine 03/31/24 documented as of this encounter
--- OUTSIDE RECORDS SUMMARY | 2024-08-21 08:40 | External Medical Summary | Summary of Care ---
Author Name Unknown Organization [facility] Address [address] [place] [address] Phone [phone] Care Team Providers Care Lead Engineer Name Role Phone Alexa Martinez MD Primary Care Provider + [phone] Reason for Visit * Reason Onset Date Comments Med Request 08/10/2024 Encounter Details Date Type Department Care Team (Late st Contact Info) Description 08/10/2024 Telephone [facility] [address] [place] [phone] Alexa Martinez MD [address] [place] [address] Med Request Allergies Active Allergy Reactions [...] as of this encounter (statuses as of 08/10/2024) Medications Medication Sig Dispensed Refills Start Date [...] for 2 days 30 Tablet 07/21/2024 Active Acetaminophen-Codeine 300-30 MG Oral TabletIndications:S/P hernia repair Take 1 Tablet by mouth every 6 hours as needed for Pain, Moderate. 28 Tablet 08/04/2024 Active Nystatin 439074 UNIT/GM External Powder (Nystop)Indications:In tertrigo Apply 1 g topically to affected area in the morning and 1 g at noon and 1 g before bedtime. Apply to skin folds. 30 g 1 08/04/2024 Active LORazepam 0.5 MG Oral Tablet (Ativan) 1-2 tab half hour before procedure 4 Tablet 08/10/2024 Active documented as of this encounter (statuses as of 08/10/2024) Active Problems Problem Noted Date Diagnosed Date [...] as of this encounter (statuses as of 08/10/2024) Resolved Problems Problem Noted Date Diagnosed Date [...] as of this encounter (statuses as of 08/10/2024) Immunizations Name Administration Dates Next Due COVID-19 mRNA, LNP-s, No Pre serve, 2-Dose Series ([employer]) 02/25/2021,02/04/2021 Hepatitis B, 20+ yrs 06/24/2013,03/18/2013,12/23 MMR [...] 08/04/2024 Does the household have a re gular [...] encounter Miscellaneous Notes * Telephone Encounter - Marley Willson CCMA - 08/10/2024 5:07 PM EDT Called and informed pt. * Telephone Encounter - Alexa Martinez MD - 08/10/2024 3:44 PM EDT Meds sent to pharmacy Pharmacy Selected: [facility] [address] [place] [id number] [facility] [address] [facility] Medication Orders Placed This Encounter Medications LORazepam 0.5 MG Oral Tablet (Ativan) Si-2 tab half hour before procedure Dispense: 4 Tablet Refill: 0 * Telephone Encounter - Kitty Snow OSA - 08/10/2024 2:14 PM EDT Pt's has Mri appt 08/19, She's claustrophobic and wanted Dr. Martinez to place a order for Ativan. documented in this encounter Plan of Treatment Upcoming Encounters Date Type Department Care Team (Late st Contact Info) Description 08/19/2024 5:00 PM EDT Appointment Radiology, [address] [address] 09/03/2024 1:25 PM EDT NeuroDiagnostic Study Neurophysiology, [address] [address] Miguel Cuello, DO [address] [facility] [place] [address] 12/09/2024 2:00 PM EST Office Visit [facility] [address] [place] [address] Alexa Martinez MD [address] [place] [address] Scheduled Procedures Name Priority Associated Diagnoses Date/Ti [...] this encounter Medical Devices Implanted Type Area Institutional Research Coordinator Device Identifier Shelf Expiration Date Model / Serial / Lot Mesh 10 X 14 [id number] - [id number] Implanted:Qty: 1 on 12/06/2017 by José Miguel Ruiz MD at OR [facility] [place] N/A: Abdomen GETINGE : MAQUET 04/11/2022 [id number] / / [id number] documented as of this encounter Advance Directives [...] Power of Attor ayse? No Care Teams Lead Engineer Relationship Specialty Start Date End Date Alexa Martinez MD [address] [place] [address] PCP - General Family Medicine 03/31/24 documented as of this encounter
--- OUTSIDE RECORDS SUMMARY | 2024-08-21 08:40 | External Medical Summary | Summary of Care ---
Author Name Unknown Organization [facility] Address [address] [place] [facility] [place] [address] Phone [phone] Care Team Providers Care Ticket Machine Operator Name Role Phone Alexa Martinez MD Primary Care Provider [phone] Reason for Visit * Reason Onset Date Comments Medication Administration 07/28/2024 Flu an d/or Pneumo Inj Flu Flu shot Encounter Details Date Type Department Care Team (Late st Contact Info) Description 07/28/2024 2:00 PM EDT Immunization Ancillary, [place] [address] [place] [phone] [place], [facility] Ancillary [address] [place] [phone] Need for prophylactic vaccination and inoculation against influenza* Allergies Active Allergy Reactions Criticality Noted Date Comments Moxifloxacin Hives High 11/04/2014 URTICARIA, HIVES Ciprofloxacin Itching 02/01/2010 Fentanyl Itching 04/04/2018 Altered mental status Metronidazole Hcl Hives 12/12/2007 Iodinated Contrast Media Rash 07/24/2023 Morphine Sulfate 01/08/2011 Hives, black and blue joseph Penicillins Rash 07/14/2003 Sulfa Antibiotics Rash 07/14/2003 Tramadol Rash 12/21/2015 Vicodin 09/19/2006 hives documented as of this encounter (statuses as of 07/28/2024) Medications Medication Sig Dispensed Refills Start Date [...] as of this encounter (statuses as of 07/28/2024) Active Problems Problem Noted Date Diagnosed Date [...] as of this encounter (statuses as of 07/28/2024) Resolved Problems Problem Noted Date Diagnosed Date [...] as of this encounter (statuses as of 07/28/2024) Immunizations Name Administration Dates Next Due COVID-19 mRNA, LNP-s, No Pre serve, 2-Dose Series ([employer]) 02/25/2021,02/04/2021 Hepatitis B, 20+ yrs 06/24/2013,03/18/2013,12/23 MMR [...] as of this encounter Progress Notes * Erika Wade CCMA - 07/28/2024 2:08 PM EDT PRE - ADMINISTRATION DOCUMENTATION Are you experiencing any cold symptoms or fever? No Have you had Guillain-Schenevus Syndrome (an illness that causes paralysis) within the last 6 weeks? No Have you had the flu shot in the past? YES Have you ever had a reaction to the flu shot? No FORREST Garcia, 07/28/2024 2:07 PM Immunization Administration Documentation Time Out Procedure Performed: Yes Patient Identified (Ask Name/Date of ): Yes Does the patient have a fever greater than 101 degrees today? No Patient allergic to latex? No VFC Stock: No Immunization(s) verified: Yes, Immunization Name: Flu, VIS Sheet(s) given: Yes Verified Side and Site: Yes Verified Shot(s) with Parent(s)/Patient: Yes documented in this encounter Plan of Treatment Upcoming Encounters Date Type Department Care Team (Late st Contact Info) Description 08/04/2024 1:20 PM EDT Telemedicine [facility] [address] [place] [address] Alexa Martinez MD [address] [place] [phone] 12/09/2024 2:00 PM EST Office Visit [facility] [address] [place] [address] Alexa Martinez MD [address] [place] [address] Scheduled Procedures Name Priority [...] Cancer Screening 01/08/2029 Lipid Panel 03/31/2029 03/31/2024, 07/11/2022, 08/31/2022, Additional history exists DTap/Tdap Vaccines (3 [...] this encounter Medical Devices Implanted Type Area Filbert Grower Device Identifier Shelf Expiration Date Model / Serial / Lot Mesh 10 X 14 [id number] - [id number] Implanted:Qty: 1 on 12/06/2017 by José Miguel Ruiz MD at OR [facility] N/A: Abdomen GETINGE : MAQUET 04/11/2022 [id number] / / [id number] documented as of this encounter Visit Diagnoses Diagnosis Need for prophylactic vaccination and inoculation against influenza- Primary documented in this encounter Advance Directives * [...] Power of Attor ayse? No Care Teams Ticket Machine Operator Relationship Specialty Start Date End Date Alexa Martinez MD [address] [place] [address] PCP - General Family Medicine 03/31/24 documented as of this encounter
--- OUTSIDE RECORDS SUMMARY | 2024-08-21 08:41 | External Medical Summary | Summary of Care ---
Author Name Unknown Organization [facility] Address [address] [address] Phone [phone] Care Team Providers Care Daycare Assistant Name Role Phone Alexa Martinez MD Primary Care Provider [phone] Reason for Visit * Reason Comments Emergency Department Follow-Up Pt soraya trujillo with her mother for a ER follow up and states she is continuing to have back pain and was on prednisone but does not want on this all the time. Encounter Details Date Type Department Care Team (Late st Contact Info) Description 07/08/2024 3:40 PM EDT Office Visit [facility] [address] [place] [address] Mandy Sierra PA-C [address] [place] [phone] Osteoarthritis of spine with radiculopathy, lumbar region* Allergies Active Allergy Reactions Criticality Noted Date Comments Moxifloxacin Hives High 11/04/2014 URTICARIA, HIVES Ciprofloxacin Itching 02/01/2010 Fentanyl Itching 04/04/2018 Altered mental status Metronidazole Hcl Hives 12/12/2007 Iodinated Contrast Media Rash 07/24/2023 Morphine Sulfate 01/08/2011 Hives, black and blue joseph Penicillins Rash 07/14/2003 Sulfa Antibiotics Rash 07/14/2003 Tramadol Rash 12/21/2015 Vicodin 09/19/2006 hives documented as of this encounter (statuses as of 07/08/2024) Medications Medication Sig Dispensed Refills Start Date [...] once daily 90 Tablet 3 10/04/2023 Active Acetaminophen-Codein e 300-30 MG Oral TabletIndications:S/ [...] 50 MG 90 Tablet 1 06/15/2024 Active Cyclobenzaprine HCl 10 MG Oral Tablet (Flexeril) Take 1 Tablet by mouth 3 times a day as needed (back pain) for up to 5 days. 15 Tablet 06/24/2024 4 Active Pregabalin 25 MG Oral Capsule (Lyrica)Indications: Osteoarthritis of spine with radiculopathy, lumbar region Take 1 Capsule by mouth in the morning and 1 Capsule at noon and 1 Capsule before bedtime. 90 Capsule 07/08/2024 Active Ammonium Lactate 12 % External CreamIndications:Alvin smoking tobacco packer hand keratosis,Seborrheic keratosis,Xerosis cutis Apply topically to affected area as needed for Dry Skin. Apply to dry skin nightly 385 g 2 01/18/2023 4 Discontinue d(Medicatio n List Clean Up) Meclizine HCl 25 MG Oral Tablet (Antivert)Indication s:Vertigo Take 1 Tablet by mouth 3 times a day as needed for Dizziness. 30 Tablet 1 05/02/2023 4 Discontinue d(Medicatio n List Clean Up) Lidocaine 5 % External Patch (Lidoderm)Indication s:Neuropathy Place 1 Patch topically on the skin daily. 30 Patch 3 08/30/2023 4 Discontinue d(Medicatio n List Clean Up) Cefdinir 300 MG Oral Capsule (Omnicef) Take 1 Capsule by mouth in the morning and 1 Capsule before bedtime. Do all this for 10 days. 20 Capsule 03/02/2024 4 Discontinue d(Medicatio n List Clean Up) predniSONE 20 MG Oral Tablet (Deltasone)Indicatio ns:Fever, unspecified fever cause Take 2 Tablets by mouth in the morning for 5 days. 10 Tablet 04/29/2024 4 Discontinue d(Medicatio n List Clean Up) Doxycycline Hyclate 100 MG Oral Capsule Take 1 Capsule by mouth in the morning and 1 Capsule before bedtime. Do all this for 10 days. Until gone.. 20 Capsule 05/05/2024 4 Discontinue d(Medicatio n List Clean Up) predniSONE 20 MG Oral Tablet (Deltasone) Take 2 tablets by mouth once daily with food for the next 4 days. 8 Tablet 06/24/2024 Discontinue d(Medicatio n List Clean Up) documented as of this encounter (statuses as of 07/08/2024) Active Problems Problem Noted Date Diagnosed Date [...] as of this encounter (statuses as of 07/08/2024) Resolved Problems Problem Noted Date Diagnosed Date [...] as of this encounter (statuses as of 07/08/2024) Immunizations Name Administration Dates Next Due COVID-19 mRNA, LNP-s, No Pre serve, 2-Dose Series ([employer]) 02/25/2021,02/04/2021 Hepatitis B, 20+ yrs 06/24/2013,03/18/2013,12/23 MMR [...] on file documented as of this encounter Last Filed Vital Signs Vital Sign Reading Time Taken Comments Blood Pressure 128/82 07/08/2024 3:37 PM EDT Pulse 92 07/08/2024 3:37 PM EDT Temperature 37 C (98.6 F) 07/08/2024 3:37 PM EDT Respiratory Rate 16 07/08/2024 3:37 PM EDT Oxygen Saturation 97% 07/08/2024 3:37 PM EDT Inhaled Oxygen Concentration - - Weight 81.9 kg (180 lb 8 oz) 07/08/2024 3:37 PM EDT Height 156.2 cm (5' 1.5") 07/08/2024 3:37 PM EDT Body Mass Index 33.56 07/08/2024 3:37 PM EDT documented in this encounter Functional Status Functional Status Response [...] as of this encounter Progress Notes * Mandy Sierra PA-C - 07/08/2024 3:59 PM EDT Subjective Ariana Tuttle is a 59 year old female. Chief Complaint Patient presents with Emergency Department Follow-Up Pt arrived with her mother for a ER follow up and states she is continuing to have back pain and was on prednisone but does not want on this all the time. HPI: Back Pain This is a chronic problem. The current episode started more than 1 month ago. The problem occurs constantly. The problem is unchanged. The pain is present in the gluteal and lumbar spine. The qualityof the pain is described as burning. The pain is The same all the time. The symptoms are aggravatedby sitting, lying down and position. Stiffness is present All day. Associated symptoms include numbness and paresis. Pertinent negatives include no fever or tingling. She has tried analgesics, musclerelaxant and NSAIDs (She is allergic to pain med and has had minimal relief with Tylenol with Codeine. She was on gabapentin in the past) for the symptoms. She was seen at [facility] ER on 06/24/24 for the ongoing low back pain and was referred to Ortho spine in [place] which is scheduled for tomorrow at 1;00pm. She was given Prednisone and Tyelnol #3 got somerelief for 2 days. She was also given Cyclobenzaprine for 5 days which did not help She has had 2 back surgeries(Edith and Vandana). Has been on Gabapentin 600mg three times daily PMH: Patient Active Problem List Diagnosis Nonallergic rhinitis Tobacco use disorder GERD (gastroesophageal reflux disease) Dyslipidemia, goal to be determined Depression with anxiety Hypokalemia Osteoarthritis of spine with radiculopathy, lumbar region Lumbar spinal stenosis Thyroid nodule MEDICATION USE AGREEMENT Irritable bowel syndrome with diarrhea Ventral hernia Chronic bilateral lower abdominal pain DDD (degenerative disc disease), cervical Moderate episode of recurrent major depressive disorder (HCC) Stress incontinence Obesity, Class II, BMI 35-39.9, isolated (see actual BMI) Elevated hemoglobin (HCC) Restless legs syndrome Current Outpatient Medications Medication Sig Dispense Refill MULTI-VITAMIN/MINERALS PO TABS 1 tablet by mouth daily VITAMIN B-12 500 MCG PO TABS Take 2 Tablets by mouth in the morning. . albuterol sulfate (PROVENTIL) (2.5 MG/3ML) 0.083% nebulizer solution Inhale 1 Vial via nebulizer every 6 hours as needed for Wheezing. 120 Vial 11 Cranberry 1000 MG Oral Capsule Take 1,000 mg by mouth daily. Vitamin D (Cholecalciferol) 25 MCG (1000 UT) Oral Capsule Take 2 Capsules by mouth in the morning. Meclizine HCl 25 MG Oral Tablet (Antivert) Take 1 Tablet by mouth 3 times a day as needed for Dizziness. 30 Tablet 0 Albuterol Sulfate HFA 108 (90 Base) MCG/ACT Inhalation Aerosol Solution Inhale 2 Puffs by mouth every 4 hours as needed for Wheezing. 18 g 5 Simvastatin 20 MG Oral Tablet (Zocor) Take 1 Tablet by mouth every evening. 90 Tablet 3 Omeprazole 40 MG Oral Capsule Delayed Release (PriLOSEC) Take 1 Capsule by mouth in the morning. 90Capsule 3 PARoxetine HCl 40 MG Oral Tablet (pAXil) Take 1 tablet by mouth once daily 90 Tablet 3 Acetaminophen-Codeine 300-30 MG Oral Tablet Take 1 Tablet by mouth every 6 hours as needed for Pain, Moderate. 28 Tablet 0 Montelukast Sodium 10 MG Oral Tablet (Singulair) Take 1 tablet by mouth once daily 90 Tablet 3 Levocetirizine Dihydrochloride 5 MG Oral Tablet TAKE 1 TABLET BY MOUTH ONCE DAILY IN THE EVENING 90Tablet 3 PARoxetine HCl 10 MG Oral Tablet (pAXil) TAKE 1 TABLET BY MOUTH IN THE MORNING, ALONG WITH YOUR 40 MG TABLET FOR A TOTAL DOSE OF 50 MG 90 Tablet 1 Cyclobenzaprine HCl 10 MG Oral Tablet (Flexeril) Take 1 Tablet by mouth 3 times a day as needed (back pain) for up to 5 days. 15 Tablet 0 No current facility-administered medications for this visit. Review of patient's allergies indicates: Allergen Reactions Avelox [Moxifloxacin] Hives URTICARIA, HIVES Cipro [Ciprofloxacin] Itching Fentanyl Itching Altered mental status Flagyl [Metronidazole Hcl] Hives Iodinated Contrast Media Rash Morphine Sulfate Hives, black and blue joseph Penicillins Rash Sulfa Antibiotics Rash Tramadol Rash Vicodin hives Review of Systems Constitutional: Negative for chills and fever. Musculoskeletal: Positive for back pain. Neurological: Positive for numbness. Negative for tingling. Objective BP 128/82 (BP Site: Left Arm, BP Position: Sitting, BP Cuff Size: Regular) | Pulse 92 | Temp 37 C(98.6 F) (Tympanic) | Resp 16 | Ht 1.562 m (5' 1.5") | Wt 81.9 kg (180 lb 8 oz) | SpO2 97% | BMI 33.56 kg/m | BSA 1.89 m Physical Exam Constitutional: General: She is in acute distress. Appearance: Normal appearance. She is not ill-appearing. Neurological: Mental Status: She is alert. NO real exam as agreed upon by patient since she will be seeing ortho spine tomorrow She wants something to relieve the burning in pelvis, legs and abck ASSESSMENT/PLAN: Osteoarthritis of spine with radiculopathy, lumbar region (Primary) - Pregabalin 25 MG Oral Capsule (Lyrica); Take 1 Capsule by mouth in the morning and 1 Capsule at noon and 1 Capsule before bedtime. Keep appt with ortho spine tomorrow We reviewed all the meds she has previously tried. And all of her allergies. I spent a total of 20-29 minutes (exact time 23 mins) on the date of service in preparation, delivery, and documentation of the care provided to Ariana Tuttle excluding any time spent in the performance of separately billed services or time spent by another provider/QHP. Mandy Sierra PA-C documented in this encounter Plan of Treatment Upcoming Encounters Date Type Department Care Team (Late st Contact Info) Description 07/09/2024 1:00 PM EDT Office Visit [facility], [facility] [address] [place] [address] [place] [address] Mavis Randall CRNP [address] [place] [address] 12/09/2024 2:00 PM EST Office Visit [facility] [address] [place] [phone] Alexa Martinez MD [address] [place] [address] Scheduled Procedures Name Priority Associated Diagnoses Date/Ti [...] this encounter Medical Devices Implanted Type Area Maintenance Helper Utility Engineer Device Identifier Shelf Expiration Date Model / Serial / Lot Mesh 10 X 14 [id number] - [id number] Implanted:Qty: 1 on 12/06/2017 by José Miguel Ruiz [place] [facility] [place] Abdomen GETINGE : MAQUET 04/11/2022 [id number] / / [id number] documented as of this encounter Visit Diagnoses Diagnosis Osteoarthritis of spine with radiculopathy, lumbar region- Primary documented in this encounter Advance Directives [...] Power of Attor ayse? No Care Teams Daycare Assistant Relationship Specialty Start Date End Date Alexa Martinez MD [address] [place] [address] PCP - General Family Medicine 03/31/24 documented as of this encounter
--- OUTSIDE RECORDS SUMMARY | 2024-08-21 08:41 | External Medical Summary | Summary of Care ---
Author Name Unknown Organization [facility] Address [address] [address] Phone [phone] Care Team Providers Care Craft Artist Name Role Phone Alexa Martinez MD Primary Care Provider [phone] Reason for Visit * Reason Onset Date Comments FYI 07/08/2024 Encounter Details Date Type Department Care Team (Late st Contact Info) Description 07/08/2024 Telephone [facility] Sp[facility], [facility] [address] [place] [address] Slick Mello MD [address] [place] [address] FYI Allergies Active Allergy Reactions Criticality Noted Date [...] by mouth in the morning. 12/26/2020 Active Ammonium Lactate 12 % External CreamIndications:Stucc o keratosis,Seborrheic keratosis,Xerosis cutis Apply topically to affected area as needed for Dry Skin. Apply to dry skin nightly 385 g 2 01/18/2023 Active Meclizine HCl 25 MG Oral Tablet (Antivert)Indications: Vertigo Take 1 Tablet by mouth 3 times a day as needed for Dizziness. 30 Tablet 1 05/02/2023 Active Meclizine HCl 25 MG Oral Tablet (Antivert)Indications: Vertigo Take 1 Tablet by mouth 3 times a day as needed for Dizziness. 30 Tablet 07/16/2023 Active Albuterol Sulfate HFA 108 (90 Base) MCG/ACT Inhalation Aerosol SolutionIndications:Wh eezing,Bronchitis, complicated Inhale 2 Puffs by mouth every 4 hours as needed for Wheezing. 18 g 5 08/30/2023 Active Lidocaine 5 % External Patch (Lidoderm)Indications: Neuropathy Place 1 Patch topically on the skin daily. 30 Patch 3 08/30/2023 Active Simvastatin 20 MG Oral Tablet [...] 50 MG 90 Tablet 1 06/15/2024 Active predniSONE 20 MG Oral Tablet (Deltasone) Take 2 tablets by mouth once daily with food for the next 4 days. 8 Tablet 06/24/2024 Active documented as of this encounter (statuses [...] mRNA, LNP-s, No Pre serve, 2-Dose Series ([employer]) 02/25/2021,02/04/2021 Hepatitis B, 20+ yrs 06/24/2013,03/18/2013,12/23 MMR [...] encounter Miscellaneous Notes * Telephone Encounter - Lis Cordova LPN - 07/08/2024 1:08 PM EDT Unable to reach via telephone, the following was found in chart Last seen in the office 09/19/2023 were discussing surgery New Referring physician: Clare Snow PA-C (ED physician) HPI: Neck or Back - both seen in ED 06/24/2024 for lumbar back Which side extremity: burning pain radiating down both legs Injury and date: Onset, progress and duration: several years worsening the last month Balance problems: Bladder or bowel disturbances: Hand dominance for cervical and hand function: Workman compensation/ Litigation/ Hoof And Shoe Inspector: Spine investigations done and date: Xray: L spine 05/10/2024 C spine 09/19/2023 MRI: C and L Spine 02/13/2022 CT scan: c spine 10/21/2023 EMG/ NCV: 03/09/2019 Spine treatment so far: Medications: cyclobenzaprine, prednisone, tylenol with codeine Physical therapy within last year: Chiropractor therapy: Brace use: Pain management and Spinal epidural injections: none Spine surgery - Surgeon and year:hx of lumbar spine surgeries by Dr. Sharma and one by Nasim, cervical fusion done by Dr. Sharma 6 years ago Significant Medical history: If diabetic HbA1c: 10/21/2023 5.2 On blood thinners: none Osteoporosis screening: none Tobacco/ Illicit drug use: Work profile documented in this encounter Plan of Treatment Upcoming Encounters Date Type Department Care Team (Late st Contact Info) Description 07/08/2024 3:40 PM EDT Office Visit [facility] [place] [address] [place] [phone] Mandy Sierra PA-C [address] [place] [address] 07/09/2024 1:00 PM EDT Office Visit [facility], [facility] [address] [place] [address] Mavis Randall CRNP [address] [place] [phone] 12/09/2024 2:00 PM EST Office Visit [facility] [place] [address] [place] [address] Alexa Martinez MD [address] [place] [phone] Scheduled Procedures Name Priority Associated Diagnoses Date/Ti me LAMINOPLASTY POSTERIOR CERVICAL Cervical spinal stenosis LAMINOPLASTY POSTERIOR CERVI CHRIS RECONSTRUCTION POST ELEMENTS Cervical spinal stenosis LAMINECTOMY FACETECTOMY AND FORAMINOTOMY POSTERIOR CERVICAL Cervical spinal stenosis LAMINECTOMY FACETECTOMY AND FORAMINOTOMY ADDITIONAL LEVELS Cervical spinal stenosis Health Maintenance Due Date Last Done Comments Cologuard 2008 Fecal Occult Blood Test 2008 Sigmoidoscopy 2008 COVID-19 Vaccine (3 - 2022-24 season) 2023 02/25/2021, 02/04/2021 Depression Monitoring 08/31/2023 [...] this encounter Medical Devices Implanted Type Area Finished Goods Stock Clerk Device Identifier Shelf Expiration Date Model / Serial / Lot Mesh 10 X 14 [id number] - [id number] Implanted:Qty: 1 on 12/06/2017 by José Miguel Ruiz MD [place] [facility] [place]: Abdomen GETINGE : DEE 04/11/2022 [id number] documented as of this encounter Advance Directives [...] Power of Attor ayse? No Care Teams Craft Artist Relationship Specialty Start Date End Date Alexa Martinez MD [address] [place] [address] PCP - General Family Medicine 03/31/24 documented as of this encounter
--- OUTSIDE RECORDS SUMMARY | 2024-08-21 08:41 | External Medical Summary | Summary of Care ---
Author Name Unknown Organization [facility] Address [address] [facility] [address] Phone [phone] Care Team Providers Care Hatch Supervisor Name Role Phone Alexa Martinez MD Primary Care Provider + [phone] Reason for Visit * Reason Comments NEW PATIENT Lumbar back * Evaluate & Treat - Unlimited Visits (Within 10 days (routine)) - Authorized Specialty Diagnoses / Procedures Referred By Gin faith Referred To Contact Neuro/Ortho Surgery - Spine. / Neurological Surgery Diagnoses Midline low back pain with bilateral sciatica, unspecified chronicity Clare Snow PA-C [address] [facility] [place] [address] Referral ID Status Reason Start Date Expiration Date Visits Requested Visits Authorized [id number] Authorized Specialty Services Required 06/24/[phone] Encounter Details Date Type Department Care Team (Late st Contact Info) Description 07/09/2024 1:00 PM EDT Office Visit Orthopaedics Spine Surgery, [facility] [employer] [facility] [address] [place] [phone] Mavis Randall CRNP [address] [place] [phone] Lumbar pain* Allergies Active Allergy Reactions Criticality Noted Date Comments Moxifloxacin Hives High 11/04/2014 URTICARIA, HIVES Ciprofloxacin Itching 02/01/2010 Fentanyl Itching 04/04/2018 Altered mental status Metronidazole Hcl Hives 12/12/2007 Iodinated Contrast Media Rash 07/24/2023 Morphine Sulfate 01/08/2011 Hives, black and blue joseph Penicillins Rash 07/14/2003 Sulfa Antibiotics Rash 07/14/2003 Tramadol Rash 12/21/2015 Vicodin 09/19/2006 hives documented as of this encounter (statuses as of 07/09/2024) Medications Medication Sig Dispensed Refills Start Date [...] as of this encounter (statuses as of 07/09/2024) Active Problems Problem Noted Date Diagnosed Date [...] as of this encounter (statuses as of 07/09/2024) Resolved Problems Problem Noted Date Diagnosed Date [...] as of this encounter (statuses as of 07/09/2024) Immunizations Name Administration Dates Next Due COVID-19 mRNA, LNP-s, No Pre serve, 2-Dose Series ([employer]) 02/25/2021,02/04/2021 Hepatitis B, 20+ yrs 06/24/2013,03/18/2013,12/23 MMR [...] Sign Reading Time Taken Comments Blood Pressure - - Pulse - - Temperature - - Respiratory Rate - - Oxygen Saturation - - Inhaled Oxygen Concentration - - Weight 81.5 kg (179 lb 11.2 oz) 024 12:54 PM EDT Height 156.2 cm (5' 1.5") 07/09/2024 12 :54 PM EDT Body Mass Index 33.4 07/09/2024 12:54 PM EDT documented in this encounter Functional [...] as of this encounter Progress Notes * Mavis Randall CRNP - 07/09/2024 1:12 PM EDT Date of service: 07/09/2024 CHIEF COMPLAINT: Ariana Tuttle is a 59 year old female presents with complaints/concerns of increase low back pain with numbness, tingling and burning around hips and groin. 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 Sharma and one by Nasim, cervical fusion done by Dr. Sharma 6 years ago Significant Medical history: If diabetic HbA1c: 10/21/2023 5.2 On blood thinners: none Osteoporosis screening: none Tobacco/ Illicit drug use: smoking tobacco, advised cessation, stated she isn't stopping Work profile Allergies: Avelox [moxifloxacin], Cipro [ciprofloxacin], Fentanyl, Flagyl [metronidazole hcl], Iodinated contrast media, Morphine sulfate, Penicillins, Sulfa antibiotics, Tramadol, and Vicodin The past medical, surgical, medication, family and social history was reviewed and is documented elsewhere in the chart. ROS: Negative except as outlined in HPI Vitals: Ht 1.562 m (5' 1.5") | Wt 81.5 kg (179 lb 11.2 oz) | BMI 33.40 kg/m | BSA 1.88 m Body mass index is 33.4 kg/m. Physical Exam: General: alert, healthy and no distress. The general appearance appears normal. Cardiovascular system: Vascularity grossly preserved Spine evaluation: No paraspinal swelling. No deformity. Neurological examination: Motor power upper extremities - Bilateral shoulder abductors, elbow flexors, triceps, wrist flexorsand extensors and intrinsic muscles of the hand is 5/5. Motor power lower extremities - Bilateral hip flexors, knee extensors, ankle dorsiflexors, plantar flexors, EHL/EDL, FHL/FDL is 5/5. The deep tendon reflexes - Bilateral Biceps, triceps, brachioradialis, Patellar tendon, Achilles tendon are 2+ Sensation are grossly preserved bilaterally in upper extremities. Sensation are grossly preserved bilaterally in the lower extremities. Radiological imaging: I independently reviewed the relevant radiological imaging including x-rays ordered at this visit and discussed it with the patient X-ray lumbar shows stable construct of implants from previous lumbar surgery. Other chronic degenerative changes. Assessment & Plan: Pt is a 59 year old female here for the following problems/concerns: S/p lumbar fusion Lumbar pain Lumbar radiculopathy Cervical pain with radiculopathy We discussed the diagnosis, the natural history and the treatment options. Based on the findings various treatment options including the risks, benefits and alternatives were discussed. Imaging and symptoms reviewed with patient. X-ray of lumbar shows stable construct of fixation. I explained to patient her numbness and tingling could be multifactorial including neuropathy or scarring. Role of surgical intervention was discussed however patient is not interested in cervical surgery at this time. Patient is agreeable to continue conservative measures. She declined interventional pain management referral and PT. - Continue lyrica 25mg TID - Continue pain management as per PCP - Encouraged core strengthening Additional recommendations: Activity modification as tolerated Pain medications as per the primary care. If the patient has persistence or worsening of symptoms additional investigations will be recommended. Warning signs have been discussed. Follow up: PRN . Reach out earlier if any acute concerns. The patient expressed understanding and agreement to the plan. Complexity of decision making: moderate I spent 25 minutes on 07/09/2024 in preparation, delivery and documentation of the care provided to the patient, excluding any time spent on the performance of the procedure are separately billable service. NYLA Landa This chart was completed in part utilizing [employer] Speech Voice Recognition Software. Grammatical errors, random word insertions, prounoun errors and incomplete sentences are an occasional consequence of this system due to software limitations, ambient noise, and hardware issues. Any formal questions or concerns about the content, text, or information contained within the body of this dictation should be directly addressed to the provider for clarification. documented in this encounter Nursing Notes * Lis Cordova LPN - 07/09/2024 12:48 PM EDT Last seen in the office 09/19/2023 were discussing surgery New Referring physician: Clare Snow PA-C (ED physician) HPI: Neck or Back - both seen in ED 06/24/2024 for lumbar back Which side extremity: burning pain radiating down both legs Injury and date: none Onset, progress and duration: several years worsening the last month Balance problems: has been having falls Bladder or bowel disturbances: ongoing urinary incontinence Hand dominance for cervical and hand function: right Workman compensation/ Litigation/ Investment Specialist: Spine investigations done and date: Xray: L spine 05/10/2024 C spine 09/19/2023 MRI: C and L Spine 02/13/2022 CT scan: c spine 10/21/2023 EMG/ NCV: 03/09/2019 Spine treatment so far: Medications: cyclobenzaprine, prednisone, tylenol with codeine lyrica Physical therapy within last year: none Chiropractor therapy: none Brace use: none Pain management and Spinal epidural injections: had them in the past but stated made her worse Spine surgery - Surgeon and year:hx of lumbar spine surgeries by Dr. Sharma and one by Nasim, cervical fusion done by Dr. Sharma 6 years ago Significant Medical history: If diabetic HbA1c: 10/21/2023 5.2 On blood thinners: none Osteoporosis screening: none Tobacco/ Illicit drug use: smoking tobacco, advised cessation, stated she isn't stopping Work profile documented in this encounter Plan of Treatment Upcoming Encounters Date Type Department Care Team (Late st Contact Info) Description 12/09/2024 2:00 PM EST Office Visit [facility] [address] [place] [address] Alexa Martinez MD [address] [place] [address] Scheduled Procedures Name Priority Associated Diagnoses Date/Ti [...] this encounter Medical Devices Implanted Type Area Burrer Marker Axle Device Identifier Shelf Expiration Date Model / Serial / Lot Mesh 10 X 14 [id number] - [id number] Implanted:Qty: 1 on 12/06/2017 by José Miguel Ruiz MD at OR [facility] [place] N/A: Abdomen GETINGE : MAQUET 04/11/2022 [id number] / / [id number] documented as of this encounter Procedures Procedure [...] changes redemonstrated with paired screws seen at [id number] level through L5 vertebral level with interconnecting [...] (R AD GENERAL) documented in this encounter Visit Diagnoses Diagnosis Lumbar pain- Primary Lumbago documented in this encounter Advance Directives * [...] Power of Attor ayse? No Care Teams Hatch Supervisor Relationship Specialty Start Date End Date Alexa Martinez MD [address] [place] [address] PCP - General Family Medicine 03/31/24 documented as of this encounter
--- OUTSIDE RECORDS SUMMARY | 2024-08-21 08:41 | External Medical Summary | Summary of Care ---
Author Name Unknown Organization [facility] Address [address] [facility] [address] Phone [phone] Care Team Providers Care Garnisher Name Role Phone Alexa Martinez MD Primary Care Provider + [phone] Reason for Visit * Reason Comments NEW PATIENT Lumbar back * Evaluate & Treat - Unlimited Visits (Within 10 days (routine)) - Authorized Specialty Diagnoses / Procedures Referred By Gin faith Referred To Contact Neuro/Ortho Surgery - Spine. / Neurological Surgery Diagnoses Midline low back pain with bilateral sciatica, unspecified chronicity Clare Snow PA-C [address] [facility] [place] [address] Referral ID Status Reason Start Date Expiration Date Visits Requested Visits Authorized [id number] Authorized Specialty Services Required 06/24/[phone] Encounter Details Date Type Department Care Team (Late st Contact Info) Description 07/09/2024 1:00 PM EDT Office Visit Orthopaedics Spine Surgery, [employer] [facility] [facility] [address] [place] [phone] Mavis Randall CRNP [address] [place] [...] mRNA, LNP-s, No Pre serve, 2-Dose Series ([employer] 02/25/2021,02/04/2021 Hepatitis B, 20+ yrs 06/24/2013,03/18/2013,12/23 MMR [...] and hand function: right Workman compensation/ Litigation/ Clay Worker: Spine investigations done and date: Xray: L [...] This chart was completed in part utilizing [employer] Speech Voice Recognition Software. Grammatical errors, random [...] and hand function: right Workman compensation/ Litigation/ Clay Worker: Spine investigations done and date: Xray: L [...] Description 12/09/2024 2:00 PM EST Office Visit [facility] [address] [place] [address] Alexa Martinez MD [address] [place] [address] Pending Results Name Type Priority Associated Diagnoses Date /Time XR L SPINE COMPLETE Medical Imaging Routine Lumbar pain 07/09/2024 1:05 PM EDT Scheduled Procedures Name Priority Associated Diagnoses Date/Ti [...] this encounter Medical Devices Implanted Type Area Treatment Supervisor Device Identifier Shelf Expiration Date Model / Serial / Lot Mesh 10 X 14 [id number] - [id number] Implanted:Qty: 1 on 12/06/2017 by José Miguel Ruiz MD [place] [facility] [place]/A: Abdomen GETINGE : MAQUET 04/11/2022 [id number] 4-00 / / [id number] documented as of this encounter Visit Diagnoses Diagnosis Lumbar pain- [...] Power of Attor ayse? No Care Teams Garnisher Relationship Specialty Start Date End Date Alexa Martinez MD [address] [place] [address] PCP - General Family Medicine 03/31/24 documented as of this encounter
--- OUTSIDE RECORDS SUMMARY | 2024-08-21 08:41 | External Medical Summary | Summary of Care ---
Author Name Unknown Organization [facility] Address [address] [facility] [address] Phone [phone] Care Team Providers Care Cardiovascular Tech Name Role Phone Alexa Martinez MD Primary Care Provider + [phone] Reason for Visit * Reason Comments Emergency Department Follow-Up Pt soraya trujillo with her mother for a ER follow up and states she is continuing to have back pain and was on prednisone but does not want on this all the time. Encounter Details Date Type Department Care Team (Late st Contact Info) Description 07/08/2024 3:40 PM EDT Office Visit [facility] [address] [place] [address] Mandy Sierra PA-C [address] [place] [phone] Osteoarthritis of spine with radiculopathy, lumbar region* [...] Active Ammonium Lactate 12 % External CreamIndications:Alvin key account director keratosis,Seborrheic keratosis,Xerosis cutis Apply topically to affected [...] mRNA, LNP-s, No Pre serve, 2-Dose Series ([employer]) 02/25/2021,02/04/2021 Hepatitis B, 20+ yrs 06/24/2013,03/18/2013,12/23 MMR [...] for the symptoms. She was seen at [facility] ER on 06/24/24 for the ongoing low back pain and was referred to Ortho spine in [place] which is scheduled for tomorrow at 1;00pm. [...] [address] [place] [address] Mavis Randall CRNP [address] [place] [address] 12/09/2024 2:00 PM EST Office Visit [facility] [address] [place] [address] Alexa Martinez MD [address] [place] [address] Scheduled Procedures Name Priority Associated Diagnoses Date/Ti [...] this encounter Medical Devices Implanted Type Area Masonry Teacher Device Identifier Shelf Expiration Date Model / Serial / Lot Mesh 10 X 14 [id number] - [id number] Implanted:Qty: 1 on 12/06/2017 by José Miguel Ruiz MD at [place] [facility] [place] N/A: Abdomen GETINGE : MAQUET 04/11/2022 [id number] 4-00 / / [id number] documented as of this encounter Visit Diagnoses [...] Power of Attor ayse? No Care Teams Cardiovascular Tech Relationship Specialty Start Date End Date Alexa Martinez MD [address] [place] [address] PCP - General Family Medicine 03/31/24 documented as of this encounter
--- OUTSIDE RECORDS SUMMARY | 2024-08-21 08:41 | External Medical Summary | Summary of Care ---
Author Name Unknown Organization [facility] Address [address] [facility] [address] Phone [phone] Care Team Providers Care Campus Ambassador Name Role Phone Alexa Martinez MD Primary Care Provider + [phone] Reason for Visit * Reason Comments NEW PATIENT Lumbar back * Evaluate & Treat - Unlimited Visits (Within 10 days (routine)) - Authorized Specialty Diagnoses / Procedures Referred By Gin faith Referred To Contact Neuro/Ortho Surgery - Spine. / Neurological Surgery Diagnoses Midline low back pain with bilateral sciatica, unspecified chronicity Clare Snow PA-C [address] [facility] [place] [address] Referral ID Status Reason Start Date Expiration Date Visits Requested Visits Authorized [id number] Authorized Specialty Services Required 06/24/[phone] Encounter Details Date Type Department Care Team (Late st Contact Info) Description 07/09/2024 1:00 PM EDT Office Visit Orthopaedics Spine Surgery, [employer] [facility] [address] [place] [phone] Mavis Randall CRNP [address] [place] [...] mRNA, LNP-s, No Pre serve, 2-Dose Series ([employer]) 02/25/2021,02/04/2021 Hepatitis B, 20+ yrs 06/24/2013,03/18/2013,12/23 MMR [...] and hand function: right Workman compensation/ Litigation/ Structural Draftsman: Spine investigations done and date: Xray: L [...] This chart was completed in part utilizing [employer] Speech Voice Recognition Software. Grammatical errors, random [...] and hand function: right Workman compensation/ Litigation/ Structural Draftsman: Spine investigations done and date: Xray: L [...] Description 12/09/2024 2:00 PM EST [facility] Visit [facility] [address] [place] [address] Alexa Martinez MD [address] [place] [address] Scheduled Procedures Name Priority Associated Diagnoses Date/Ti [...] this encounter Medical Devices Implanted Type Area Coil Inspector Device Identifier Shelf Expiration Date Model / Serial / Lot Mesh 10 X 14 [id number] - [id number] Implanted:Qty: 1 on 12/06/2017 by José Miguel Ruiz MD [place] [facility] [place]A: Abdomen GETINGE : MAQUET 04/11/2022 [id number] 4-00 / / [id number] documented as of this encounter Procedures Procedure [...] changes redemonstrated with paired screws seen at [id number] level through L5 vertebral level with interconnecting [...] Power of Attor ayse? No Care Teams Campus Ambassador Relationship Specialty Start Date End Date Alexa Martinez MD [address] [place] [address] PCP - General Family Medicine 03/31/24 documented as of this encounter
--- OUTSIDE RECORDS SUMMARY | 2024-08-21 08:41 | External Medical Summary | Summary of Care ---
Author Name Unknown Organization [facility] Address [address] [place] [address] Phone [phone] Care Team Providers Care Safety Person Name Role Phone Alexa Martinez MD Primary Care Provider Encounter Details Date Type Department Care Team (Late st Contact Info) Description 07/06/2024 Orders Only Outcomes Research Department [address] [place] [address] Lucia Schaeffer CHRA [employer] Other*[id number] Allergies Active Allergy Reactions Criticality Noted Date Comments Moxifloxacin Hives High 11/04/2014 URTICARIA, HIVES Ciprofloxacin Itching 02/01/2010 Fentanyl Itching 04/04/2018 Altered mental status Metronidazole Hcl Hives 12/12/2007 Iodinated Contrast Media Rash 07/24/2023 Morphine Sulfate 01/08/2011 Hives, black and blue joseph Penicillins Rash 07/14/2003 Sulfa Antibiotics Rash 07/14/2003 Tramadol Rash 12/21/2015 Vicodin 09/19/2006 hives documented as of this encounter (statuses as of 07/06/2024) Medications Medication Sig Dispensed Refills Start Date [...] as of this encounter (statuses as of 07/06/2024) Active Problems Problem Noted Date Diagnosed Date [...] as of this encounter (statuses as of 07/06/2024) Resolved Problems Problem Noted Date Diagnosed Date [...] as of this encounter (statuses as of 07/06/2024) Immunizations Name Administration Dates Next Due COVID-19 mRNA, LNP-s, No Pre serve, 2-Dose Series ([employer]) 02/25/2021,02/04/2021 Hepatitis B, 20+ yrs 06/24/2013,03/18/2013,12/23 MMR [...] [address] [place] [address] Mavis Randall CRNP [address] [place] [phone] 12/09/2024 2:00 PM EST Office Visit [facility] [address] [place] [address] Alexa Martinez MD [address] [place] [address] Scheduled Orders Name Type Priority Associated Diagnoses Orde r Schedule MYCODE SUBSEQUENT ADULT Lab Routine [facility] Other*[id number] Every 6 Months for 2 Occurrences starting 07/06/2024 until 07/26/2025 Scheduled Procedures Name Priority Associated Diagnoses Date/Ti me LAMINOPLASTY POSTERIOR CERVICAL Cervical spinal stenosis LAMINOPLASTY POSTERIOR CERVI CHRIS RECONSTRUCTION POST ELEMENTS Cervical spinal stenosis LAMINECTOMY FACETECTOMY AND FORAMINOTOMY POSTERIOR CERVICAL Cervical spinal stenosis LAMINECTOMY FACETECTOMY AND FORAMINOTOMY ADDITIONAL LEVELS Cervical spinal stenosis Health Maintenance Due Date Last Done Comments Cologuard 2008 Fecal Occult Blood Test 2008 Sigmoidoscopy 2008 COVID-19 Vaccine (3 - 2022- season) 2023 02/25/2021, 02/04/2021 Depression Monitoring 08/31/2023 [...] this encounter Medical Devices Implanted Type Area Element Winding Machine Tender Device Identifier Shelf Expiration Date Model / Serial / Lot Mesh 10 X 14 [id number] - [id number] Implanted:Qty: 1 on 12/06/2017 by José Miguel Ruiz MD at OR [facility] [place] N/A: Abdomen GETINGE : MAQUET 04/11/2022 [id number] documented as of this encounter Visit Diagnoses Diagnosis [facility] Other*[id number] documented in this encounter Advance Directives * [...] Power of Attor ayse? No Care Teams Safety Person Relationship Specialty Start Date End Date Alexa Martinez MD [address] [place] [address] PCP - General Family Medicine 03/31/24 documented as of this encounter
--- OUTSIDE RECORDS SUMMARY | 2024-08-21 08:42 | External Medical Summary ---
Author Name Unknown Address Unknown Organization K01:LAB[place]ATORY [facility] [place] [facility] [place] [address] [facility] [place] [address] Laboratory Report Ordering Provider Test Date Status TREVOR VERDIN 04/29/2024 12:55:37 Final Observation Date Value Abnormality Reference (Units ) Status Adenovirus DNA [Presence] in Nasopharynx by JOSE DE JESUS with non-probe detection 04/29/2024 12:55:37 Negative Negative Final Human coronavirus 229E RNA [Presence] in Nasopharynx by JOSE DE JESUS with non-probe detection 04/29/2024 12:55:37 Negative Negative Final Human coronavirus HKU1 RNA [Presence] in Nasopharynx by JOSE DE JESUS with non-probe detection 04/29/2024 12:55:37 Negative Negative Final Human coronavirus NL63 RNA [Presence] in Nasopharynx by JOSE DE JESUS with non-probe detection 04/29/2024 12:55:37 Negative Negative Final Human coronavirus OC43 RNA [Presence] in Nasopharynx by JOSE DE JESUS with non-probe detection 04/29/2024 12:55:37 Negative Negative Final SARS-CoV-2 (COVID-19) RNA [Presence] in Nasopharynx by JOSE DE JESUS with non-probe detection 04/29/2024 12:55:37 Negative Negative Final Human metapneumovirus RNA [Presence] in Nasopharynx by JOSE DE JESUS with non-probe detection 04/29/2024 12:55:37 Negative Negative Final Rhinovirus+Enterovirus RNA [Presence] in Nasopharynx by JOSE DE JESUS with non-probe detection 04/29/2024 12:55:37 Positive Abnormal Negative Final Rhinovirus/Enterovirus detec mary by PCR (amplified probe). Influenza virus A RNA [Prese nce] in Nasopharynx by JOSE DE JESUS with non-probe detection 04/29/2024 12:55:37 Negative Negative Final Influenza virus B RNA [Prese nce] in Nasopharynx by JOSE DE JESUS with non-probe detection 04/29/2024 12:55:37 Negative Negative Final Parainfluenza virus 1 RNA [P resence] in Nasopharynx by JOSE DE JESUS with non-probe detection 04/29/2024 12:55:37 Negative Negative Final Parainfluenza virus 2 RNA [P resence] in Nasopharynx by JOSE DE JESUS with non-probe detection 04/29/2024 12:55:37 Negative Negative Final Parainfluenza virus 3 RNA [P resence] in Nasopharynx by JOSE DE JESUS with non-probe detection 04/29/2024 12:55:37 Negative Negative Final Parainfluenza virus 4 RNA [P resence] in Nasopharynx by JOSE DE JESUS with non-probe detection 04/29/2024 12:55:37 Negative Negative Final Respiratory syncytial virus RNA [Presence] in Nasopharynx by JOSE DE JESUS with non-probe detection 04/29/2024 12:55:37 Negative Negative F inal Bordetella pertussis.pertuss is toxin promoter region [Presence] in Nasopharynx by JOSE DE JESUS with non-probe detection 04/29/2024 12:55:37 Negative Negative Final Chlamydophila pneumoniae DNA [Presence] in Nasopharynx by JOSE DE JESUS with non-probe detection 04/29/2024 12:55:37 Negative Negative Final Mycoplasma pneumoniae DNA [P resence] in Nasopharynx by JOSE DE JESUS with non-probe detection 04/29/2024 12:55:37 Negative Negative Final Bordetella parapertussis IS1 001 DNA [Presence] in Nasopharynx by JOSE DE JESUS with non-probe detection 04/29/2024 12:55:37 Negative Negative F inal
The primers that detect Rhinovirus may cross react with some Enterorviruses. The validation of bronchial specimens, tracheal aspirates, and throats for this assay was developed and performance characteristics determined by [email or web address]. The validation of alternate specimen types has not been cleared or approved by the U.S. Food and Drug Administration (FDA). It has been determined that such clearance or approval is not necessary. Performing Location LABORATORY [place] [address] [facility] [place] [facility] [address]
--- OUTSIDE RECORDS SUMMARY | 2024-08-21 08:42 | External Medical Summary | Summary of Care ---
Author Name Unknown Organization [facility] [address] [facility] [address] Phone [phone] Care Team Providers Care Glazier Helper Name Role Phone Lambert Martinez MD Primary Care Provider [phone] Reason for Visit * Reason Comments eRx-Medication Refill Encounter Details Date Type Department Care Team (Late st Contact Info) Description 06/13/2024 Refill [facility] [address] [facility] [place] [address] Martine Garcia MD [address] [place] [address] Moderate episode of recurrent major depressive disorder (HCC) Allergies Active Allergy Reactions Criticality Noted Date Comments Moxifloxacin Hives High 11/04/2014 URTICARIA, HIVES Ciprofloxacin Itching 02/01/2010 Fentanyl Itching 04/04/2018 Altered mental status Metronidazole Hcl Hives 12/12/2007 Iodinated Contrast Media Rash 07/24/2023 Morphine Sulfate 01/08/2011 Hives, black and blue joseph Penicillins Rash 07/14/2003 Sulfa Antibiotics Rash 07/14/2003 Tramadol Rash 12/21/2015 Vicodin 09/19/2006 hives documented as of this encounter (statuses as of 06/15/2024) Medications Medication Sig Dispensed Refills Start Date [...] by mouth in the morning. 1 Active Ammonium Lactate 12 % External CreamIndications:Alvin accounting advisory services manager keratosis,Seborrheic keratosis,Xerosis cutis Apply topically to affected area as needed for Dry Skin. Apply to dry skin nightly 385 g 2 3 Active Meclizine HCl 25 MG Oral Tablet (Antivert)Indication s:Vertigo Take 1 Tablet by mouth 3 times a day as needed for Dizziness. 30 Tablet 1 3 Active Meclizine HCl 25 MG Oral Tablet (Antivert)Indication s:Vertigo Take 1 Tablet by mouth 3 times a day as needed for Dizziness. 30 Tablet 3 Active Albuterol Sulfate HFA 108 (90 Base) MCG/ACT Inhalation Aerosol SolutionIndications: Wheezing,Bronchitis, complicated Inhale 2 Puffs by mouth every 4 hours as needed for Wheezing. 18 g 5 3 Active Lidocaine 5 % External Patch (Lidoderm)Indication s:Neuropathy Place 1 Patch topically on the skin daily. 30 Patch 3 3 Active Simvastatin 20 MG Oral Tablet (Zocor)Indications:D yslipidemia, goal to be determined Take 1 Tablet by mouth every evening. 90 Tablet 3 3 Active Omeprazole 40 MG Oral Capsule Delayed Release (PriLOSEC)Indication s:Gastroesophageal reflux disease without esophagitis Take 1 Capsule by mouth in the morning. 90 Capsule 3 3 Active PARoxetine HCl 40 MG Oral Tablet (pAXil) Take 1 tablet by mouth once daily 90 Tablet 3 3 Active Acetaminophen-Codein e 300-30 MG Oral TabletIndications:S/ P hernia repair Take 1 Tablet by mouth every 6 hours as needed for Pain, Moderate. 28 Tablet 4 Active Montelukast Sodium 10 MG Oral Tablet [...] 50 MG 90 Tablet 1 4 Active PARoxetine HCl 10 MG Oral Tablet (pAXil)Indications:M oderate episode of recurrent major depressive disorder (HCC) TAKE 1 TABLET BY MOUTH IN THE MORNING, ALONG WITH YOUR 40 MG TABLET FOR A TOTAL DOSE OF 50 MG 90 Tablet 1 4 06/15/20 24 Discontinued documented as of this encounter (statuses as of 06/15/2024) Active Problems Problem Noted Date Diagnosed Date [...] as of this encounter (statuses as of 06/15/2024) Resolved Problems Problem Noted Date Diagnosed Date [...] as of this encounter (statuses as of 06/15/2024) Immunizations Name Administration Dates Next Due COVID-19 mRNA, LNP-s, No Pre serve, 2-Dose Series ([employer]) 02/25/2021,02/04/2021 Hepatitis B, 20+ yrs 06/24/2013,03/18/2013,12/23 MMR [...] our heating, water, or electric bill? No 06/17/2023 Is your family able to pay t he heat, water, or electric bill? (Household - for ages 0-17 years) Not on file 06/17/2023 Does your family have access to good internet? (Household - for ages 0-17 years) Not on file 06/17/2023 Employment Status Answer Date Recorded Are you unemployed or without regular income? No 06/17/2023 Does the household have a re gular source of income? (Household - for ages 0-17 years) Not on file 06/17/2023 Social Connections Answer Date Recorded How often do you feel lonely or isolated from th ose around you? Never 06/17/2023 Financial Resource Strain Answer Date R ecorded [...] encounter Miscellaneous Notes * Telephone Encounter - Malik Simon, [facility] - 06/15/2024 7:26 AM EDT Signed Prescriptions: Disp Refills PARoxetine HCl 10 MG Oral Tablet (pAXil) 90 Tab*1 Sig: TAKE 1 TABLET BY MOUTH IN THE MORNING, ALONG WITH YOUR 40 MG TABLET FOR A TOTAL DOSE OF 50 MGAuthorizing Provider: LAMBERT MARTINEZ User: MALIK SIMON documented in this encounter Plan of Treatment Upcoming Encounters Date Type Department Care Team (Late st Contact Info) Description 12/09/2024 2:00 PM EST Office Visit [facility] [address] [place] [address] Lambert Martinez MD [address] [place] [address] Scheduled Procedures Name Priority Associated Diagnoses Date/Ti [...] this encounter Medical Devices Implanted Type Area Honing Machine Operator Production Device Identifier Shelf Expiration Date Model / Serial / Lot Mesh 10 X 14 [id number] - [id number] Implanted:Qty: 1 on 12/06/2017 by José Miguel Ruiz [place] [facility] [place]A: Abdomen GETINGE : MAQUET 04/11/2022 [id number] / [id number] documented as of this encounter Visit Diagnoses Diagnosis Moderate episode of recurrent major depressive disorder (HCC) documented in this encounter Advance Directives * [...] Power of Attor ayse? No Care Teams Glazier Helper Relationship Specialty Start Date End Date Lambert Martinez MD [address] [place] [address] PCP - General Family Medicine 03/31/24 documented as of this encounter
--- OUTSIDE RECORDS SUMMARY | 2024-08-21 08:42 | External Medical Summary | Summary of Care ---
Author Name Unknown Organization [facility] Address [address] [place] [address] Phone [phone] Care Team Providers Care Field Contact Person Name Role Phone Alexa Martinez MD Primary Care Provider [phone] Encounter Details Date Type Department Care Team (Late st Contact Info) Description 06/25/2024 Telephone [facility] [address] [place] [address] Slick Mello MD [address] [place] [address] Allergies Active Allergy Reactions Criticality Noted Date Comments Moxifloxacin Hives High 11/04/2014 URTICARIA, HIVES Ciprofloxacin Itching 02/01/2010 Fentanyl Itching 04/04/2018 Altered mental status Metronidazole Hcl Hives 12/12/2007 Iodinated Contrast Media Rash 07/24/2023 Morphine Sulfate 01/08/2011 Hives, black and blue joseph Penicillins Rash 07/14/2003 Sulfa Antibiotics Rash 07/14/2003 Tramadol Rash 12/21/2015 Vicodin 09/19/2006 hives documented as of this encounter (statuses as of 06/25/2024) Medications Medication Sig Dispensed Refills Start Date End Date Status MULTI-VITAMIN/MINERAL S PO TABS 1 tablet by mouth daily Active VITAMIN B-12 500 MCG PO TABS Take 2 Tablets by mouth in the morning. . Active albuterol sulfate (PROVENTIL) (2.5 MG/3ML) 0.083% nebulizer solutionIndications:W heezing Inhale 1 Vial via nebulizer every 6 hours as needed for Wheezing. 120 Vial 11 08/14/2018 Active Cranberry 1000 MG Oral Capsule Take 1,000 mg by mouth daily. Active Vitamin D (Cholecalciferol) 25 MCG (1000 UT) Oral Capsule Take 2 Capsules by mouth in the morning. 12/26/2020 Active Ammonium Lactate 12 % External CreamIndications:Stuc co keratosis,Seborrheic keratosis,Xerosis cutis Apply topically to affected area as needed for Dry Skin. Apply to dry skin nightly 385 g 2 01/18/2023 Active Meclizine HCl 25 MG Oral Tablet (Antivert)Indications :Vertigo Take 1 Tablet by mouth 3 times a day as needed for Dizziness. 30 Tablet 1 05/02/2023 Active Meclizine HCl 25 MG Oral Tablet (Antivert)Indications :Vertigo Take 1 Tablet by mouth 3 times a day as needed for Dizziness. 30 Tablet 07/16/2023 Active Albuterol Sulfate HFA 108 (90 Base) MCG/ACT Inhalation Aerosol SolutionIndications:W heezing,Bronchitis, complicated Inhale 2 Puffs by mouth every 4 hours as needed for Wheezing. 18 g 5 08/30/2023 Active Lidocaine 5 % External Patch (Lidoderm)Indications :Neuropathy Place 1 Patch topically on the skin daily. 30 Patch 3 08/30/2023 Active Simvastatin 20 MG Oral Tablet (Zocor)Indications:Dy slipidemia, goal to be determined Take 1 Tablet by mouth every evening. 90 Tablet 3 08/30/2023 Active Omeprazole 40 MG Oral Capsule Delayed Release (PriLOSEC)Indications :Gastroesophageal reflux disease without esophagitis Take 1 Capsule [...] 03/04/2024 Active Levocetirizine Dihydrochloride 5 MG Oral TabletIndications:Non allergic rhinitis TAKE 1 TABLET BY MOUTH ONCE DAILY IN THE EVENING 90 Tablet 3 03/04/2024 Active PARoxetine HCl 10 MG Oral Tablet (pAXil)Indications:Mo derate episode of recurrent major depressive disorder (HCC) TAKE 1 TABLET BY MOUTH IN THE MORNING, ALONG WITH YOUR 40 MG TABLET FOR A TOTAL DOSE OF 50 MG 90 Tablet 1 06/15/2024 Active Cyclobenzaprine HCl 10 MG Oral Tablet (Flexeril) Take 1 Tablet by mouth 3 times a day as needed (back pain) for up to 5 days. 15 Tablet 06/24/2024 06/29/2024 Active predniSONE 20 MG Oral Tablet (Deltasone) Take 2 tablets by mouth once daily with food for the next 4 days. 8 Tablet 06/24/2024 Active documented as of this encounter (statuses as of 06/25/2024) Active Problems Problem Noted Date Diagnosed Date [...] as of this encounter (statuses as of 06/25/2024) Resolved Problems Problem Noted Date Diagnosed Date [...] as of this encounter (statuses as of 06/25/2024) Immunizations Name Administration Dates Next Due COVID-19 mRNA, LNP-s, No Pre serve, 2-Dose Series ([employer]) 02/25/2021,02/04/2021 Hepatitis B, 20+ yrs 06/24/2013,03/18/2013,12/23 MMR [...] encounter Miscellaneous Notes * Telephone Encounter - Zora[facility] - 06/25/2024 10:08 AM EDT Images from the original note were not included. Slick Mello MD Orthopaedics [facility] Desk Pool/Class ER follow-up. If neurologically stable, next available with [facility]. Please advise if pt is neurologically stable for scheduling purposes. Thank you. documented in this encounter Plan of Treatment Upcoming Encounters Date Type Department Care Team (Late st Contact Info) Description 12/09/2024 2:00 PM EST Office Visit [facility] [place] [address] [place] [address] Alexa Martinez MD [address] [place] [address] Scheduled Procedures Name Priority Associated Diagnoses Date/Ti [...] this encounter Medical Devices Implanted Type Area Online Merchandiser Device Identifier Shelf Expiration Date Model / Serial / Lot Mesh 10 X 14 [id number] - [id number] Implanted:Qty: 1 on 12/06/2017 by José Miguel Ruiz MD at [place] [facility] [place]/A: Abdomen GETINGE : MAQUET 04/11/2022 [id number] / / [id number] documented as of this encounter Advance Directives [...] Power of Attor ayse? No Care Teams Field Contact Person Relationship Specialty Start Date End Date Alexa Martinez MD [address] [place] [address] PCP - General Family Medicine 03/31/24 documented as of this encounter
--- OUTSIDE RECORDS SUMMARY | 2024-08-21 08:42 | External Medical Summary ---
Author Name Unknown Address Unknown Organization K01:LABORATORY [facility] [place] - [address] [place], [place] [address]e. [facility] [address] Laboratory Report Ordering Provider Test Date Status TREVOR VERDIN 04/29/2024 12:55:37 Final Observation Date Value Abnormality Reference (Units) Status Streptococcus pyogenes DNA [Presence] in Throat by JOSE DE JESUS with probe detection 04/29/2024 12:55:37 Negative. No Group A Streptococcus detected by PCR (amplified probe). Negative Final This test was developed and its performance characteristics determined by [facility]. It has not been cleared or approved by the FDA. The laboratory is regulated under CLIA as qualified to perform high- complexity testing. This test is used for clinical purposes. It should not be regarded as investigational or for research. Performing Location LABORATORY [facility] [place] - [facility] [address]
--- OUTSIDE RECORDS SUMMARY | 2024-08-21 08:42 | External Medical Summary | Summary of Care ---
Author Name Unknown Organization [facility] Address [address] [place] [address] Phone [phone] Care Team Providers Care Senior Compensation Analyst Name Role Phone Alexa Martinez MD Primary Care Provider Reason for Visit * Reason Comments Sinus Problem Sx's since Thursday 04/26 Generalized Body Aches Earache Headache Sore Throat Wheezing Cough Fever 101-102 Itch Ears & eyes Encounter Details Date Type Department Care Team (Late st Contact Info) Description 04/29/2024 2:00 PM EDT Office Visit [facility] [address] [place] [id number] Alexa Martinez MD [address] [place] [id number] Fever, unspecified fever cause* Allergies Active Allergy Reactions Criticality Noted Date Comments Moxifloxacin Hives High 11/04/2014 URTICARIA, HIVES Ciprofloxacin Itching 02/01/2010 Fentanyl Itching 04/04/2018 Altered mental status Metronidazole Hcl Hives 12/12/2007 Iodinated Contrast Media Rash 07/24/2023 Morphine Sulfate 01/08/2011 Hives, black and blue joseph Penicillins Rash 07/14/2003 Sulfa Antibiotics Rash 07/14/2003 Tramadol Rash 12/21/2015 Vicodin 09/19/2006 hives documented as of this encounter (statuses as of 04/29/2024) Medications Medication Sig Dispensed Refills Start Date [...] Active Ammonium Lactate 12 % External CreamIndications:Alvin strategic accounts manager keratosis,Seborrheic keratosis,Xerosis cutis Apply topically to [...] once daily 90 Tablet 3 3 Active PARoxetine HCl 10 MG Oral Tablet (pAXil)Indications:M oderate episode of recurrent major depressive disorder (HCC) TAKE 1 TABLET BY MOUTH IN THE MORNING, ALONG WITH YOUR 40 MG TABLET FOR A TOTAL DOSE OF 50 MG 90 Tablet 1 4 Active Acetaminophen-Codein e 300-30 MG Oral [...] THE EVENING 90 Tablet 3 4 Active predniSONE 20 MG Oral Tablet (Deltasone)Indicatio ns:Fever, unspecified fever cause Take 2 Tablets by mouth in the morning for 5 days. 10 Tablet 4 05/04/20 24 Active Budesonide 0.25 MG/2ML Inhalation Suspension (Pulmicort) Add one respule to nasal saline rinse and perform nasal saline irrigation daily as directed. 60 mL 12 1 04/29/20 24 Discontinued Azelastine HCl 0.1 % Nasal Solution Administer 1 [place] into nostril 2 times a day. 30 mL 12 1 04/29/20 24 Discontinued documented as of this encounter (statuses as of 04/29/2024) Active Problems Problem Noted Date Diagnosed Date [...] as of this encounter (statuses as of 04/29/2024) Resolved Problems Problem Noted Date Diagnosed Date [...] as of this encounter (statuses as of 04/29/2024) Immunizations Name Administration Dates Next Due COVID-19 mRNA, LNP-s, No Pre serve, 2-Dose Series (KOWN) 02/25/2021,02/04/2021 Hepatitis B, 20+ yrs 06/24/2013,03/18/2013,12/23 MMR [...] Day Cigarettes 0.3 35 Smokeless Tobacco: Never Tobacco Cessation:Ready to Q uit: No; Counseling Given: No Comments:passive smoke from Alcohol Use Standard Drinks/Week [...] money to get more. Never true 06/17/2023 Sex and Gender Information Value Date Recorded Sex Assigned at Female 02/19/2019 11:31 AM EDT Gender Identity Female 02/19/2019 11:31 AM EDT Sexual Orientation Straight 02/19/2019 11 :31 AM EDT Job Start Date Occupation Industry Not on file Not on file Not on file documented as of this encounter Last Filed Vital Signs Vital Sign Reading Time Taken Comments Blood Pressure 104/72 04/29/2024 12:28 PM EDT Pulse 102 04/29/2024 12:28 PM EDT Temperature 37.1 C (98.8 F) 04/29/2024 12:28 PM E DT Respiratory Rate 20 04/29/2024 12:28 PM EDT Oxygen Saturation 95% 04/29/2024 12:28 PM EDT Inhaled Oxygen Concentration - - Weight 83.5 kg (184 lb 1.6 oz) 04/29/2024 12:28 PM EDT Height - - Body Mass Index 35.07 11/21/2023 11:11 AM EST documented in this encounter Functional Status Functional [...] Progress Notes * Alexa Martinez MD - 04/29/2024 12:23 PM EDT Subjective Ariana Tuttle is a 58 year old female that presents for Sinus Problem (Sx's since Thursday 04/26), Generalized Body Aches, Earache, Headache, Sore Throat, Wheezing, Cough, Fever (101-102), and Itch (Ears & eyes ) Cold Symptoms This is a new problem. The current episode started in the past 7 days. The problem has been unchanged. The maximum temperature recorded prior to her arrival was 102 - 102.9 F. The fever has been present for 1 to 2 days. Associated symptoms include headaches and a sore throat. Associated symptoms com ments: Myalgia . She has tried acetaminophen for the symptoms. The treatment provided mild relief. Objective BP 104/72 | Pulse 102 | Temp 37.1 C (98.8 F) (Tympanic) | Resp 20 | Wt 83.5 kg (184 lb 1.6 oz) | SpO2 95% | BMI 35.07 kg/m | BSA 1.89 m Body mass index is 35.07 kg/m. BP Readings from Last 3 Encounters: 04/29/24 104/72 03/31/24 116/74 03/02/24 122/78 Wt Readings from Last 3 Encounters: 04/29/24 83.5 kg (184 lb 1.6 oz) 03/31/24 83.9 kg (184 lb 14.4 oz) 03/02/24 84.5 kg (186 lb 4.8 oz) Physical Exam Vitals and nursing note reviewed. Constitutional: Appearance: She is well-developed. HENT: Head: Normocephalic and atraumatic. Right Ear: Tympanic membrane normal. Left Ear: Tympanic membrane normal. Mouth/Throat: Pharynx: Posterior oropharyngeal erythema present. Cardiovascular: Rate and Rhythm: Regular rhythm. Pulmonary: Breath sounds: Normal breath sounds. Musculoskeletal: Cervical back: Neck supple. Neurological: Mental Status: She is alert. Strep poc, bmp reviewed today Assessment and plan Fever, unspecified fever cause (Primary) - GROUP A STREP PCR - STREP A SCREEN, POINT OF CARE (ENTER/EDIT) - RESPIRATORY PATHOGEN PANEL, PCR; Future; Expected date: 04/29/2024 - predniSONE 20 MG Oral Tablet (Deltasone); Take 2 Tablets by mouth in the morning for 5 days. - RESPIRATORY PATHOGEN PANEL, PCR Total time today including reviewing chart before the visit, pertinent labs, imaging reports, face to face time, and documentation time was 15 minutes. The above was discussed and understanding was expressed. Alexa Martinez MD documented in this encounter Nursing Notes * Dahlia Brandt LPN - 04/29/2024 12:28 PM EDT Chief Complaint Patient presents with Sinus Problem Sx's since Thursday 04/26 Generalized Body Aches Earache Headache Sore Throat Wheezing Cough Fever 101-102 Itch Ears & eyes documented in this encounter Plan of Treatment Upcoming Encounters Date Type Department Care Team (Late st Contact Info) Description 12/09/2024 2:00 PM EST Office Visit [facility] [address] [place] [address] Alexa Martinez MD [address] [place] [address] Pending Results Name Type Priority Associated Diagnoses Date /Time GROUP A STREP PCR Lab Routine Fever, unspecified fever cause 04/29/2024 12:55 PM EDT RESPIRATORY PATHOGEN PANEL, PCR Lab Routine Fever, unspecified fever cause 04/29/2024 12:55 PM EDT Scheduled Orders Name Type Priority Associated Diagnoses Orde r Schedule STREP A SCREEN, POINT OF CARE (ENTER/EDIT) Point of Care Testing Routine Fever, unspecified fever cause Ordered: 04/29/2024 RESPIRATORY PATHOGEN PANEL, PCR Lab Routine Fever, unspecified fever cause Expected: 04/29/2024 (Approximate), Expires: 04/29/2025 Scheduled Procedures Name Priority Associated Diagnoses Date/Ti [...] 2023 02/25/2021, 02/04/2021 Depression Monitoring 08/31/2023 08/31/2022 Mammogram 09/02/2024 09/02/2023, 08/18, 05/10/2020, Additional history [...] or Tdap) 03/09/2033 03/09/2023, 10/02/2011 Hepatitis B Completed 06/24/2013, 05/0 11/2012, 12/23/2012 Zoster Vaccines Completed 06/15/2023, 03/09/2023 Influenza Vaccine (FLU shot) Completed , 08/31/2022, 11/14/2021, Additional history exists GARDASIL-HPV IMMUNIZATION SERIES Aged Out No longer eligible based on patient's age to complete this topic MENINGOCOCCAL (MENACTRA/MENVEO) Aged Out No longer eligible based on patient's age to complete this topic documented as of this encounter Medical Devices Implanted Type Area Liquefaction And Regasification Helper Device Identifier Shelf Expiration Date Model / Serial / Lot Mesh 10 X 14 [id number] - [id number] Implanted:Qty: 1 on 12/06/2017 by José Miguel Ruiz MD at [facility] [place], [place] N/A: Abdomen GETINGE : MAQUET 04/11/2022 [id number] / / [id number] documented as of this encounter Visit Diagnoses Diagnosis Fever, unspecified fever cause- Primary documented in this encounter Additional Health Concerns Infection Onset Date Last Indicated Resolved Time Respiratory Rule-Out 04/29/2024 04/29/2024 documented as of this encounter Advance Directives [...] Power of Attor ayse? No Care Teams Senior Compensation Analyst Relationship Specialty Start Date End Date Alexa Martinez MD [address] [place] [id number] PCP - General Family Medicine 03/31/24 documented as of this encounter"
--- OUTSIDE RECORDS SUMMARY | 2024-08-21 08:42 | External Medical Summary | Summary of Care ---
Author Name Unknown Organization [facility] Address [address] [place] [address] Phone [phone] Care Team Providers Care Candy Roller Name Role Phone Alexa Martinez MD Primary Care Provider + [phone] Reason for Referral * Evaluate & Treat - Unlimited Visits (Within 10 days (routine)) - Authorized Specialty Diagnoses / Procedures Referred By Gin faith Referred To Contact Neuro/Ortho Surgery - Spine. / Neurological Surgery Diagnoses Midline low back pain with bilateral sciatica, unspecified chronicity Clare Snow PA-C [address] [facility] [place] [address] Referral ID Status Reason Start Date Expiration Date Visits Requested Visits Authorized [id number] Authorized Specialty Services Required 06/24/[phone] Question Answer Referral Priority Within 10 days (routine) Where should this appointment be scheduled? [facility] spine region: Back - Thoracic/Lumbar Do you have any recent complete loss of bladder or bowel function? No Comments Discharge Order Reason for Visit * Reason Comments Back Pain * Auth/Cert Specialty Diagnoses / Procedures Referred By Gin faith Referred To Contact [facility] [address] [facility] [place] [address] Phone: [phone] Emergency Medicine [facility] [address] [facility] [place] [address] Referral ID Status Reason Start Date Expiration Date Visits Re quested Visits Authorized [id number] Encounter Details Date Type Department Care Team (Late st Contact Info) Description 06/24/2024 5:08 PM EDT - 06/24/2024 6:02 PM EDT Emergency [facility] [address] [place] [address] Merrick Vasquez MD [address] [facility] [place] [address] Midline low back pain with bilateral sciatica, unspecified chronicity (Primary Dx) Discharge Disposition: Home - Self Care Allergies [...] mRNA, LNP-s, No Pre serve, 2-Dose Series (Mark Forged) 02/25/2021,02/04/2021 Hepatitis B, 20+ yrs 06/24/2013,03/18/2013,12/23 MMR [...] Sign Reading Time Taken Comments Blood Pressure 147/77 06/24/2024 5:12 PM EDT Pulse 81 06/24/2024 5:12 PM EDT Temperature 36.2 C (97.2 F) 06/24/2024 5:12 PM ED T Respiratory Rate 18 06/24/2024 5:12 PM EDT Oxygen Saturation 100% 06/24/2024 5:12 PM EDT Inhaled Oxygen Concentration - - Weight 83.9 kg (185 lb) 06/24/2024 5:12 PM EDT Height 156.2 cm (5' 1.5") 06/24/2024 5:12 PM EDT Body Mass Index 34.39 06/24/2024 5:12 PM EDT documented in this encounter Functional [...] No 12/07/2017 documented as of this encounter Discharge Instructions * Discharge Instructions* Clare Snow PA-C - 06/24/2024 5:50 PM EDT Rest, avoid heavy lifting, gripping, pushing and pulling. Continue all at-home medications. Take medication recommended at today's emergency department visit with care, as the muscle relaxants will cause drowsiness, sedation, clumsiness. A referral has been made for follow up on an outpatient basis with the orthopedic spine specialty. Jeffrey will arrange this appointment for you. Reviewed discharge instructions. Return to the Emergency Deparment if symptoms return, persist, or worsen. documented in this encounter ED Notes * Merrick Vasquez MD - 06/24/2024 5:19 PM EDT HISTORY OF PRESENT ILLNESS Ariana Tuttle is a 59 year old female who presents to the ED for evaluation of Back Pain. The patient was seen at 06/24/24 1710. 59 year old female with PMH significant for GERD, allergic rhinitis, depression/anxiety, dyslipidemia presents to ER c/o chronic low back pain. Acute on chronic symptoms started > 1 month ago. Radiates into BLE and patient describes the discomfort into the buttocks as burning Aggravating factors: movement, palpation, weight bearing. Denies alleviating factors. Worse at night when attempting to sleep With exception to age, TUNA FISH negative. No fecal or urinary incontinence, no saddle paresthesia, no weakness in the bilateral lower extremities. 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 Review of Systems Constitutional: Negative for chills, diaphoresis, fatigue and fever. Gastrointestinal: Negative for abdominal pain. Musculoskeletal: Positive for back pain. Skin: Negative for rash. Neurological: Negative for numbness. The patient's allergies, past history, and medications were reviewed. PHYSICAL EXAM Initial Vitals (see all): BP 147/77 | Pulse 81 | Resp 16 | Temp 97.3 | O2 100 %, Room Air, None | Weight 83.92 kg | Height 156.2 cm | BMI 34.39 kg/m2 Initial Pain Assessment (see all): 8 (severe pain)/10, Throbbing , Stabbing, location: lower back ([facility] Adult Scale 0-10) Physical Exam Vitals and nursing note reviewed. Constitutional: General: She is awake. She is not in acute distress. Appearance: Normal appearance. She is well-developed and well-groomed. She is not ill-appearing, toxic-appearing or diaphoretic. Comments: Well-appearing female in no acute distress. Respirations and speech are unlabored. Resting comfortably in supine position on the stretcher with her legs crossed. Cardiovascular: Rate and Rhythm: Normal rate and regular rhythm. Heart sounds: Normal heart sounds. Pulmonary: Effort: Pulmonary effort is normal. Breath sounds: Normal breath sounds and air entry. Abdominal: General: Bowel sounds are normal. Palpations: Abdomen is soft. Tenderness: There is no abdominal tenderness. Musculoskeletal: Thoracic back: Normal. Lumbar back: Tenderness (paraspinal) and bony tenderness (Midline) present. Positive right straightleg raise test. Negative left straight leg raise test. Right hip: Normal. Left hip: Normal. Comments: Bilateral lower extremity with full active range of motion. Sensation intact to light touch. Brisk capillary refill. Strength +5/5. DTRs + 2 and equal bilaterally. Skin: General: Skin is warm and dry. Capillary Refill: Capillary refill takes less than 2 seconds. Neurological: Mental Status: She is alert and oriented to person, place, and time. Psychiatric: Behavior: Behavior is cooperative. PROCEDURES AND TREATMENTS ED Orders | ED Results MEDICAL DECISION MAKING Nursing notes and vital signs were reviewed. ED Course as of 06/24/241932Jun 24, 20241724 Discussed recommendations with the patient. She states that she just recently had x-rays via this emergency department, but left before she wasable to be treated for her pain as the waiting room was full and the wait was too long. Declines new x-rays today. Also states that she is not sure she wants to take anything that will make her groggy or tired, andshe reports numerous allergies. Patient agreeable to a single dose of Percocet, prednisone, and Flexeril while in the emergency department. If effective, will discharge to home with prednisone, Flexeril and patient has Tylenol #3 that she is able to use at home. In agreement with plan [JT] 1746 Patient requests discharge prior to taking her medication, she is struggling to find a ride home. Will dispensed medication for self administration at home. Flexeril prednisone for the next 5 days. Follow up with spine surgeon, patient in agreement with a referral to ortho spine. Educated on strict return to ED instructions. Understanding verbalized by patient. [JT] ED Course User Index [JT] Clare Snow PA-C Risk Prescription drug management. Clinical Impressions Midline low back pain with bilateral sciatica, unspecified chronicity - acute on chronic Disposition Discharged. The patient's condition at disposition was: stable. - Referred to ortho spine -PCP follow up in 1 week. - continue at home medications. -Educated on strict return to ED instructions. Understanding verbalized by patient. Discharge Medications Disp Refills Start End Cyclobenzaprine HCl 10 MG Oral Tablet (Flexeril) 15 Tablet 0 06/24/2024 06/29/2024 Sig - Route: Take 1 Tablet by mouth 3 times a day as needed (back pain) for up to 5 days. - Oral Class: ePrescribing Renewals Renewal requests to authorizing provider (Claer Snow PA-C) <b>prohibited</b> predniSONE 20 MG Oral Tablet (Deltasone) 8 Tablet 0 06/24/2024 -- Sig: Take 2 tablets by mouth once daily with food for the next 4 days. Class: ePrescribing Renewals Renewal requests to authorizing provider (Clare Snow PA-C) <b>prohibited</b> -Educated on risks, benefits, side effects, and administration of medications. Merrick Vasquez was the attending physician who supervised the care of this patient. Clare Snow PA-C ATTENDING ATTESTATION I was readily available and reviewed care of this patient. I was available for immediate emum-ao-chnh consultation and assistance. I have reviewed the care of the patient with the provider listed above. * Kim Renteria RN - 06/24/2024 5:10 PM EDT Patient states that she is having lower back pain and bilateral lower leg pain. Patient states thatshe has been having this pain for about a month now. Patient states that it feels like a burning pain in her legs. Patient states that she did come to ED for X-rays, but never got the results due to leaving before being seen. Patient states that she did take Tylenol with codeine at 9 last night. Patient states that pain is worse with ambulation. documented in this encounter Miscellaneous Notes * ED Drop Crew Laborer Note - Basilio English LPN - 06/24/2024 5:57 PM EDT Pt verbalized understanding of d/c instructions. Pt ambulated off-unit w/ meds to take once home. * Pt Handout (on AVS) - Clare Snow PA-C - 06/24/2024 5:49 PM EDT [id number] Sciatica Sciatica is a condition that causes pain in the low back that spreads down into the buttock, hip, and leg. Sometimes the leg pain can happen without any back pain. Sciatica happens when a spinal nerve is irritated or has pressure put on it as it comes out of the spinal canal in the low back. This most often happens when a bulge or rupture of a nearby spinal disk presses on the nerve. Sciatica canalso be caused by a narrowing of the spinal canal (spinal stenosis) or spasm of the muscle in the buttocks that the sciatic nerve passes through (piriformis muscle). Sciatica may also be called lumbar radiculopathy. Sciatica may start after a sudden twisting or bending force, such as in a car accident. Or it can happen after a simple awkward movement. In either case, muscle spasm often also happens. Muscle spasmmakes the pain worse. A healthcare provider makes a diagnosis of sciatica from your symptoms and a physical exam. Unless you had an injury from a car accident or fall, you usually won?t have X-rays taken at this time. This is because the nerves and disks in your back can?t be seen on an X-ray. If the provider suspects acompressed nerve based on your history or exam, you'll need to schedule an MRI scan. Nerve conductions studies and electromyography are nerve tests that can also help find the cause of nerve pain. Signs of a compressed nerve include loss of strength or reflexes in a leg. Most sciatica gets better with medicine, exercise, and physical therapy. If your symptoms continue after medical treatment, you may need surgery or shots (injections) to your low back. This will depend on how severe your symptoms are. Home care Follow these tips when caring for yourself at home: As soon as possible, start sitting up or walking. This will help you prevent problems that come from staying in bed for long periods. When in bed, try to find a position that is comfortable. A firm mattress is best. Try lying flaton your back with pillows under your knees. You can also try lying on your side with your knees bent up toward your chest and a pillow between your knees. Don't sit for long periods. This puts more stress on your low back than standing or walking. Use heat from a hot shower, hot bath, or heating pad to help ease pain. Massage can also help. You can also try using an ice pack. You can make your own ice pack by putting ice cubes in a plastic bag that seals at the top. Wrap the bag in a thin towel. Try both heat and cold to see which works best. Use the method that feels best for 20 minutes several times a day. You may use acetaminophen or ibuprofen to ease pain, unless another pain medicine was prescribed. Note: If you have chronic liver or kidney disease, talk with your healthcare provider before taking these medicines. Also, talk with your provider if you?ve had a stomach ulcer or digestive tract bleeding. Use safe lifting methods. Don?t lift anything heavier than advised until all of the pain is gone. Follow-up care Follow up with your healthcare provider, or as advised. You may need physical therapy or more tests. If X-rays were taken, a radiologist will look at them. You'll be told of any new findings that may affect your care. When to get medical care Call your healthcare provider right away if any of these occur: Pain gets worse even after taking prescribed medicine Weakness or numbness in 1 or both legs or hips Numbness in your groin or genital area You can?t control your bowel or bladder Fever 100.4F (38C) or higher, or as advised by your provider Redness or swelling over your back or spine Last Reviewed Date: 03/18/202219991612-0770 [employer]. All rights reserved. This information is not intended as a substitute for professional medical care. Always follow your healthcare professional's instructions. * Pt Handout (on AVS) - Clare Snow PA-C - 06/24/2024 5:49 PM EDT Images from the original note were not included. [id number] Back Pain (Acute or Chronic) Back pain is one of the most common problems. The good news is that most people feel better in 1 to2 weeks, and most of the rest in 1 to 2 months. Most people can remain active. People who have pain describe it differently?not everyone is the same. The pain can be sharp, stabbing, shooting, aching, cramping or burning. Movement, standing, bending, lifting, sitting, or walking may worsen pain. It can be limited to one spot or area, or it can be more generalized. It can spread upwards, to the front, or go down your arms or legs (sciatica). It can cause muscle spasm. Most of the time, mechanical problems with the muscles or spine cause the pain. Mechanical problemsare usually caused by an injury to the muscles or ligaments. Illness can cause back pain, but it's usually not caused by a serious illness. Mechanical problems include: Physical activity such as sports, exercise, work, or normal activity Overexertion, lifting, pushing, pulling incorrectly or too aggressively Sudden twisting, bending, or stretching from an accident, or accidental movement Poor posture Stretching or moving wrong, without noticing pain at the time Poor coordination, lack of regular exercise (check with your doctor about this) Spinal disc disease or arthritis Stress Pain can also be related to , or illness such as appendicitis, bladder or kidney infections, kidney stones, and pelvic infections. Acute back pain usually gets better in 1 to 2 weeks. Back pain related to disk disease, arthritis in the spinal joints, or narrowing of the spinal canal (spinal stenosis) can become chronic and last for months or years. Unless you had a physical injury such as a car accident or fall, X-rays are usually not needed for the first assessment of back pain. If pain continues and does not respond to medical treatment, you may need X-rays and other tests. Home care Try this home care advice: When in bed, try to find a position of comfort. A firm mattress is best. Try lying flat on your back with pillows under your knees. You can also try lying on your side with your knees bent up toward your chest and a pillow between your knees. At first, don't try to stretch out the sore spots. If there is a strain, it's not like the good soreness you get after exercising without an injury. In this case, stretching may make it worse. Don't sit for long periods, as in a long car ride or during other travel. This puts more stress on the lower back than standing or walking. During the first 24 to 72 hours after an acute injury or flare up of chronic back pain, apply anice pack to the painful area for 20 minutes and then remove it for 20 minutes. Do this over a period of 60 to 90 minutes or several times a day. This will reduce swelling and pain. Wrap the ice pack in a thin towel or plastic to protect your skin. You can start with ice, then switch to heat. Heat (hot shower, hot bath, or heating pad) reducespain and works well for muscle spasms. Heat can be applied to the painful area for 20 minutes then remove it for 20 minutes. Do this over a period of 60 to 90 minutes or several times a day. Don't sleep on a heating pad. It can lead to skin murphy or tissue damage. You can alternate ice and heat therapy. Talk with your doctor about the best treatment for your back pain. Therapeutic massage can help relax the back muscles without stretching them. Be aware of safe lifting methods. Don't lift anything without stretching first. Medicines Talk to your doctor before using medicine, especially if you have other medical problems or are taking other medicines. You may use lonh-xow-wuzbynw medicine as directed on the bottle to control pain, unless another pain medicine was prescribed. Talk with your healthcare provider before using these medicines if youhave chronic conditions such as diabetes, liver or kidney disease, stomach ulcers, or digestive bleeding. Also talk with your provider if you take blood thinners. Be careful if you are given a prescription medicines, narcotics, or medicine for muscle spasms. They can cause drowsiness, affect your coordination, reflexes, and judgment. Don't drive or operate heavy machinery. Follow-up care Follow up with your healthcare provider, or as advised. If X-rays were taken, you will be told of any new findings that may affect your care. Call 911 Call 911 if any of the following occur: Trouble breathing Confusion Very drowsy or trouble awakening Fainting or loss of consciousness Rapid or very slow heart rate Loss of bowel or bladder control When to seek medical advice Call your healthcare provider right away if any of these occur: Pain gets worse or spreads to your legs Your bowel or bladder control changes Fever Blood in your urine Weakness or numbness in one or both legs Numbness in the groin or genital area Last Reviewed Date: 11/18/202119995846-7079 [employer]. All rights reserved. This information is not intended as a substitute for professional medical care. Always follow your healthcare professional's instructions. * ED Drop Crew Laborer Note - Chrissy Doan RN - 06/24/2024 5:47 PM EDT This RN has reviewed and agrees with the assessment completed by Marcus SPENCER. * ED Drop Crew Laborer Note - Basilio English LPN - 06/24/2024 5:18 PM EDT Pt came to ED w/ complaint of burning pain in lower back and legs. Pt localizes pain to entirety of lower back, radiating to both knees. Pt says 8- 9/10 burning pain when she is not moving around; says the pain becomes worse when she moves her legs. Pt was here about a month ago d/t this pain (a few days after the pain emerged), and had a XR taken, but left d/t wait. Pt says pain has become worse since then. Pt said she had back surgery years ago, as well as a hernia repair in her abdomen. documented in this encounter Plan of Treatment Upcoming Encounters Date Type Department Care Team (Late st Contact Info) Description 12/09/2024 2:00 PM EST Office Visit [facility] [address] [place] [phone] Alexa Martinez MD [address] [place] [id number] Scheduled Procedures Name Priority Associated Diagnoses Date/Ti me LAMINOPLASTY POSTERIOR CERVICAL Cervical spinal stenosis LAMINOPLASTY POSTERIOR CERVI CHRIS RECONSTRUCTION POST ELEMENTS Cervical spinal stenosis LAMINECTOMY FACETECTOMY AND FORAMINOTOMY POSTERIOR CERVICAL Cervical spinal stenosis LAMINECTOMY FACETECTOMY AND FORAMINOTOMY ADDITIONAL LEVELS Cervical spinal stenosis Scheduled Referrals Name Type Priority Associated Diagnoses Orde r Schedule SPINE SURGERY REFERRAL OP Referral Within 10 days (routine) Midline low back pain with bilateral sciatica, unspecified chronicity Ordered: 06/24/2024 Health Maintenance Due Date Last Done Comments [...] this encounter Medical Devices Implanted Type Area Radio Board Operator Device Identifier Shelf Expiration Date Model / Serial / Lot Mesh 10 X 14 [id number] - [id number] Implanted:Qty: 1 on 12/06/2017 by José Miguel Ruiz MD at OR [facility] N/A: Abdomen GETINGE : MAQUET 04/11/2022 [id number] documented as of this encounter Visit Diagnoses Diagnosis Midline low back pain with bilateral sciatica, unspecified chronicity- Primary documented in this encounter Administered Medications Inactive Administered Medications - up to 3 most recent administrations Medication Order MAR Action Action Date Dose Rate Site cyclobenzaprine (Flexeril) tab 10 mg 10 mg, Oral, ONCE, On Sat06/24/24 at 1830, For 1 dose, Dispense to patient for self administration at home. oxyCODONE-acetaminophen 5-325 mg per tab (Percocet) 1 Tablet 1 Tablet, Oral, ONCE, On Sat06/24/24 at 1830, For 1 dose, Dispense to patient for self administration at home predniSONE (Deltasone) tab 50 mg 50 mg, Oral, ONCE, On Sat06/24/24 at 1800, For 1 dose Given 06/24/2024 5:48 PM EDT 50 mg documented in this encounter Active and Recently Administered Medications Times are shown in EDT. Scheduled Medication Order 06/22/2024 06/23/2024 06/24/2024 cyclobenzaprine (Flexeril) tab 10 mg 10 mg, Oral, ONCE, On Sat06/24/24 at 1830, For 1 dose, Dispense to patient for self administration at home. oxyCODONE-acetaminophen 5-325 mg per tab (Percocet) 1 Tablet 1 Tablet, Oral, ONCE, On Sat06/24/24 at 1830, For 1 dose, Dispense to patient for self administration at home predniSONE (Deltasone) tab 50 mg (COMPLETED) 50 mg, Oral, ONCE, On Sat06/24/24 at 1800, For 1 dose 1748 (Given - Provid er: Basilio English LPN) documented in this encounter Advance Directives * [...] Power of Attor ayse? No Care Teams Candy Roller Relationship Specialty Start Date End Date Alexa Martinez MD [address] [place] [phone] PCP - General Family Medicine 03/31/24 documented as of this encounter
--- OUTSIDE RECORDS SUMMARY | 2024-08-21 08:42 | External Medical Summary | Summary of Care ---
Author Name Unknown Organization [facility] Address [address] [place] [address] Phone [phone] Care Team Providers Care Last Chalker Name Role Phone Alexa Martinez MD Primary Care Provider Encounter Details Date Type Department Care Team (Latest Contact Info) Description 03/31/2024 2:39 PM EDT - 03/31/2024 11:59 PM EDT Hospital Encounter Radiology, [address] [facility] [place] [address] Arrived Discharge Disposition: Home - Self [...] as of this encounter (statuses as of 04/01/2024) Medications Medication Sig Dispensed Refills Start Date End Date Status MULTI-VITAMIN/MINERAL S PO TABS 1 tablet by mouth daily 0 Active VITAMIN B-12 500 MCG PO TABS Take 2 Tablets by mouth in the morning. . 0 Active albuterol sulfate (PROVENTIL) (2.5 MG/3ML) 0.083% nebulizer solutionIndications:Cayla turnering Inhale 1 Vial via nebulizer every 6 hours as needed for Wheezing. 120 Vial 11 08/14/2018 Active Cranberry 1000 MG Oral Capsule Take 1,000 mg by mouth daily. 0 Active Vitamin D (Cholecalciferol) 25 MCG (1000 UT) Oral Capsule Take 2 Capsules by mouth in the morning. 0 12/26/2020 Active Budesonide 0.25 MG/2ML Inhalation Suspension (Pulmicort) Add one respule to nasal saline rinse and perform nasal saline irrigation daily as directed. 60 mL 12 09/04/2021 Active Additional Information Patient not taking.Reported on 03/02/2024 Azelastine HCl 0.1 % Nasal Solution Administer 1 [place] into nostril 2 times a day. 30 mL 12 09/04/2021 Active Additional Information Patient not taking.Reported on 03/02/2024 Ammonium Lactate 12 % External CreamIndications:Stuc co [...] as needed for Dizziness. 30 Tablet 0 07/16/2023 Active Albuterol Sulfate HFA 108 (90 [...] once daily 90 Tablet 3 10/04/2023 Active PARoxetine HCl 10 MG Oral Tablet (pAXil)Indications:Mo derate episode of recurrent major depressive disorder (HCC) TAKE 1 TABLET BY MOUTH IN THE MORNING, ALONG WITH YOUR 40 MG TABLET FOR A TOTAL DOSE OF 50 MG 90 Tablet 1 02/18/2024 Active Acetaminophen-Codeine 300-30 MG Oral TabletIndications:S/P hernia repair Take 1 Tablet by mouth every 6 hours as needed for Pain, Moderate. 28 Tablet 0 03/02/2024 Active Montelukast Sodium 10 MG Oral Tablet (Singulair) Take 1 tablet by mouth once daily 90 Tablet 3 03/04/2024 Active Levocetirizine Dihydrochloride 5 MG Oral TabletIndications:Non allergic rhinitis TAKE 1 TABLET BY MOUTH ONCE DAILY IN THE EVENING 90 Tablet 3 03/04/2024 Active documented as of this encounter (statuses as of 04/01/2024) Active Problems Problem Noted Date Diagnosed Date [...] as of this encounter (statuses as of 04/01/2024) Resolved Problems Problem Noted Date Diagnosed Date [...] as of this encounter (statuses as of 04/01/2024) Immunizations Name Administration Dates Next Due COVID-19 mRNA, LNP-s, No Pre serve, 2-Dose Series ([employer]) 02/25/2021,02/04/2021 Hepatitis B, 20+ yrs 06/24/2013,03/18/2013,12/23 MMR - Measles/Mumps/Rubella Vaccine 12/23/2012 PPD 12/16/2012 Pneumococcal Conjugate Vacc, 13 Valent (Prevnar) 10/15/2017 Pneumococcal Polysaccharide PPV23 (Pneumovax) 10/02/2011 Seasonal Influenza, PF, 6 M & above, IM , (FluLaval or Fluzone) 08/30/2023,08/31/2022,11/14/2021,09/02,07/31/2019,10/15/2017 Seasonal Influenza, Quadriva lent, No Preserve, IM 09/05/2016 Seasonal Influenza, Split, I IV3, With Preserve, Inj 08/04/2013,08/26/2012,09/04/2011,10/17 TDAP (age 10 and older)(Boostrix) 03/09/2023 TDAP (age 11 and older)(Adacel) 10/02/2011 Tetanus Toxid Adsorbed 04/24/2005 Zoster Vaccine [...] 2:00 PM EST Office Visit [facility] [address] [place] [address] Alexa Martinez MD [address] [place] [address] Scheduled Procedures Name Priority Associated Diagnoses Date/Ti [...] COVID-19 Vaccine ( season) 2023 02/25/2021, 02/04/2021 Mammogram 09/02/2024 09/02/2023, 08/18, 05/10/2020, [...] this encounter Medical Devices Implanted Type Area Helper Driver Device Identifier Shelf Expiration Date Model / Serial / Lot Mesh 10 X 14 [id number] - [id number] Implanted:Qty: 1 on 12/06/2017 by José Miguel Ruiz MD at OR [facility] N/A: Abdomen GETINGE : MAQUET 04/11/2022 [id number] documented as of this encounter Procedures Procedure Name Priority Date/Time Associated Diagnosis Comments US HEAD AND NECK Routine 03/31/2024 3:29 PM EDT Thyroid nodule documented in this encounter Results * US HEAD AND NECK (03/31/2024 3:29 PM EDT) Anatomical Region Laterality Modality Neck, Head Ultrasound 03/31/2024 4:2 4 PM EDT Impressions 03/31/2024 4:22 PM EDT IMPRESSION: Thyroid nodules as discussed. Narrative 03/31/2024 4:22 PM EDT EXAM: US HEAD AND NECK HISTORY: thyroid ndule follow up TECHNIQUE: Real-time scanning performed of thyroid gland. COMPARISON: Ultrasound-guided fine-needle aspiration thyroid dated 07/05/2016; thyroid ultrasound dated 06/08/2016 FINDINGS: Patient has history of prior ultrasound-guided fine-needle aspiration mid right thyroid lobe nodule with reported benign results Thyroid Size: Right lobe-4.1 cm x 2.4 cm x 2.1 cm; prominent Left lobe-4.0 cm x 1.4 cm x 1.4 cm Isthmus-0.3 cm AP Bilaterally glandular contour is maintained. The visualized thyroid parenchymal echotexture is bilaterally homogeneous and symmetric. Two focal nodules are identified. Nodule assessment: Right lobe: More posterior mid right lobe slightly lobulated but well-defined wider than tall. It is mixed sonolucent and isoechoic solid predominantly isoechoic solid. There is no associated calcification. This measures approximately 21 mm x 15 mm x 17 mm. Previously reported on 06/08/2016 to measure 17 mm x 13 mm x 12 mm. By ultrasound characteristics this is felt TR-3. Consider follow-up ultrasound surveillance in a 12 month timeframe. Again available history is at this has been previously sampled with ultrasound guided fine-needle aspiration with reported benign results. Left lobe: Midpole ovoid somewhat heterogeneous predominantly hypoechoic solid well-defined relatively wider than tall measuring approximately 6 mm x 4 mm x 5 mm. By ultrasound characteristics this is felt TR-4. No other focal nodule or mass is identified. There is no adjacent bulky lymphadenopathy. There are small bilateral elliptical well-defined wider than tall structures with hypoechoic cortex and more hyperechoic hilar or medullary portion. Approximately larger on the right measures approximally 10 mm x 5 mm x 10 mm. Cortex is not abnormally thickened measuring approximately 2 mm. Approximately larger on left measures approximately 9 mm x 4 mm x 8 mm. Cortex is not abnormally thickened measuring approximally 3 mm. Procedure Note Chintan Beaulieu MD - 03/31/2024 EXAM: US HEAD AND NECK HISTORY: thyroid ndule follow up TECHNIQUE: Real-time scanning performed of thyroid gland. COMPARISON: Ultrasound-guided fine-needle aspiration thyroid dated 07/05/2016; thyroidultrasound dated 06/08/2016 FINDINGS: Patient has history of prior ultrasound-guided fine-needle aspiration midright thyroid lobe nodule with reported benign results Thyroid Size: Right lobe-4.1 cm x 2.4 cm x 2.1 cm; prominent Left lobe-4.0 cm x 1.4 cm x 1.4 cm Isthmus-0.3 cm AP Bilaterally glandular contour is maintained. The visualized thyroidparenchymal echotexture is bilaterally homogeneous and symmetric. Twofocal nodules are identified. Nodule assessment: Right lobe: More posterior mid right lobe slightly lobulated but well-defined widerthan tall. It is mixed sonolucent and isoechoic solid predominantlyisoechoic solid. There is no associated calcification. This measuresapproximately 21 mm x 15 mm x 17 mm. Previously reported on 06/08/2016 tomeasure 17 mm x 13 mm x 12 mm. By ultrasound characteristics this is feltTR-3. Consider follow-up ultrasound surveillance in a 12 month timeframe.Again available history is at this has been previously sampled withultrasound guided fine-needle aspiration with reported benign results. Left lobe: Midpole ovoid somewhat heterogeneous predominantly hypoechoic solidwell-defined relatively wider than tall measuring approximately 6 mm x 4mm x 5 mm. By ultrasound characteristics this is felt TR-4. No other focal nodule or mass is identified. There is no adjacent bulky lymphadenopathy. There are small bilateralelliptical well-defined wider than tall structures with hypoechoic cortexand more hyperechoic hilar or medullary portion. Approximately larger onthe right measures approximally 10 mm x 5 mm x 10 mm. Cortex is notabnormally thickened measuring approximately 2 mm. Approximately largeron left measures approximately 9 mm x 4 mm x 8 mm. Cortex is notabnormally thickened measuring approximally 3 mm. IMPRESSION IMPRESSION: Thyroid nodules as discussed. Alexa Martinez MD RAD ULTRASOUND documented in this encounter Visit Diagnoses Diagnosis Thyroid nodule Nontoxic uninodular goiter documented in this encounter Advance Directives Latest Code Status on File Code Status Date Activated Date Inactivated Comments Full Code 12/06/2017 9:19 AM 12/10/2017 6:33 PM Question Answer Comments Discussion of Advance Direct roshni occurred with: Not Discussed Code Status History Code Status Date Activated Date Inactivated Comments Full Code 12/06/2017 7:45 AM 12/06/2017 9:19 AM Question Answer Comments Discussion of Advance Direct roshni occurred with: Not Discussed Does the patient have a Living Will? No Does the patient have Health Care Power of Telecommunications Technician? No Care Teams Last Chalker Relationship Specialty Start Date End Date Alexa Martinez MD [address] [place] [phone] PCP - General Family Medicine 03/31/24 documented as of this encounter
--- OUTSIDE RECORDS SUMMARY | 2024-08-21 08:42 | External Medical Summary | Summary of Care ---
Author Name Unknown Organization [facility] Address [address] [place] [address] Phone [phone] Care Team Providers Care Concrete Pipe Plant Supervisor Name Role Phone Alexa Martinez MD Primary Care Provider [phone] Reason for Visit * Reason Comments Back Pain * Auth/Cert Specialty Diagnoses / Procedures Referred By Contac t Referred To Contact [facility] [address] [place] [address] Phone: [phone] Emergency Medicine [facility] [address] [place] [address] Referral ID Status Reason Start Date Expiration Date Visits Re quested Visits Authorized [id number] Encounter Details Date Type Department Care Team (Late st Contact Info) Description 05/11/2024 2:43 AM EDT - 05/11/2024 3:12 AM EDT Emergency [facility] ([facility]) [address] [place] [address] Mauricio Iniguez, [address] [place] [address] Discharge Disposition: Other Allergies Active Allergy Reactions Criticality Noted Date Comments Moxifloxacin Hives High 11/04/2014 URTICARIA, HIVES Ciprofloxacin Itching 02/01/2010 Fentanyl Itching 04/04/2018 Altered mental status Metronidazole Hcl Hives 12/12/2007 Iodinated Contrast Media Rash 07/24/2023 Morphine Sulfate 01/08/2011 Hives, black and blue joseph Penicillins Rash 07/14/2003 Sulfa Antibiotics Rash 07/14/2003 Tramadol Rash 12/21/2015 Vicodin 09/19/2006 hives documented as of this encounter (statuses as of 05/11/2024) Medications Medication Sig Dispensed Refills Start Date [...] THE EVENING 90 Tablet 3 03/04/2024 Active Doxycycline Hyclate 100 MG Oral Capsule Take 1 Capsule by mouth in the morning and 1 Capsule before bedtime. Do all this for 10 days. Until gone.. 20 Capsule 05/05/2024 05/15/2024 Active documented as of this encounter (statuses as of 05/11/2024) Active Problems Problem Noted Date Diagnosed Date [...] as of this encounter (statuses as of 05/11/2024) Resolved Problems Problem Noted Date Diagnosed Date [...] as of this encounter (statuses as of 05/11/2024) Immunizations Name Administration Dates Next Due COVID-19 mRNA, LNP-s, No Pre serve, 2-Dose Series ([employer]) 02/25/2021,02/04/2021 Hepatitis B, 20+ yrs 06/24/2013,03/18/2013,12/23 MMR [...] Sign Reading Time Taken Comments Blood Pressure 132/64 05/10/2024 10:01 PM EDT Pulse 69 05/10/2024 10:01 PM EDT Temperature 36.8 C (98.2 F) 05/10/2024 9:21 PM ED T Respiratory Rate 18 05/10/2024 10:0 1 PM EDT Oxygen Saturation 98% 05/10/2024 9:21 PM EDT Inhaled Oxygen Concentration - - Weight 82.9 kg (182 lb 11.2 oz) 05/10/2024 9:21 PM EDT Height 157.5 cm (5' 2") 05/10/2024 9:21 PM EDT Body Mass Index 33.42 05/10/2024 9:21 PM EDT documented in this encounter Functional [...] No 12/07/2017 documented as of this encounter ED Notes * Mauricio Iniguez DO - 05/11/2024 3:12 AM EDT Patient was seen in triage but left prior to being fully seen or worked up in the emergency department. XR with old hardware noted, report without acute findings * Geetha Vieyra RN - 05/10/2024 9:23 PM EDT Pt here for lower back pain. Started 4 days ago. States she has tylenol w/ codeine and it is not helping. Last dose of tylenol w/ codeine was last evening. States she has a cold and has been coughing and thinks it could have aggravated her back. Has not seen an orthopedic provider since her back surgery "years" ago. States she is on doxycycline for her cold and a steroid. documented in this encounter Miscellaneous Notes * ED Automotive Refinish Technician Note - Kiley Merritt RN - 05/11/2024 2:45 AM EDT Pt left waiting room without being seen by provider. documented in this encounter Plan of Treatment Upcoming Encounters Date Type Department Care Team (Late st Contact Info) Description 12/09/2024 2:00 PM EST Office Visit [facility] [address] [place] [address] Alexa Martinez MD [address] [place] [address] Scheduled Procedures Name Priority Associated Diagnoses Date/Ti [...] Cancer Screening 01/08/2029 Lipid Panel 03/31/2029 03/31/2024, /11/2022, 08/31/2022, Additional history exists DTaP,Tdap,and Td Vaccines [...] this encounter Medical Devices Implanted Type Area Business Support Administrator Device Identifier Shelf Expiration Date Model / Serial / Lot Mesh 10 X 14 [id number] - [id number] Implanted:Qty: 1 on 12/06/2017 by José Miguel Ruiz MD at [place] [facility] [place] N/A: Abdomen GETINGE : MAQUET 04/11/2022 [id number] documented as of this encounter Procedures Procedure Name Priority Date/Time Associated Diagnosis Comments XR L SPINE COMPLETE STAT 05/10/2024 9 :37 PM EDT documented in this encounter Results * XR L SPINE COMPLETE (05/10/2024 9:37 PM EDT) Anatomical Region Laterality Modality Vertebra, Lspine Digital Radiogr aphy 05/10/2024 9:34 PM EDT Impressions 05/10/2024 11:44 PM EDT IMPRESSION: Stable postsurgical changes L2-L5. THIS DOCUMENT HAS BEEN ELECTRONICALLY SIGNED BY VIVIAN HARPER MD Narrative 05/10/2024 11:44 PM EDT PROCEDURE INFORMATION: Exam: XR Lumbosacral Spine Exam date and time: 05/10/2024 9:34 PM Age: 59 years old Clinical indication: Other: Low back pain, lower extremity pain TECHNIQUE: Imaging protocol: Radiologic exam of the lumbosacral spine. Views: 4 or 5 views. COMPARISON: 1. DX XR L SPINE AP AND LATERAL 04/20/2024 11:28 AM 2. MR LUMBAR ROUTINE 02/13/2022 7:10 PM 3. CR XR L SPINE AP AND LATERAL 12/18/2021 4:11 PM FINDINGS: Tubes, catheters and devices: Pelvic clips. Bones/joints: Previous lumbar fusion L2-L5 with posterior decompression and L3/L4 interbody fusion. Hardware alignment unchanged. No evidence of hardware complication. Degenerative lumbar spondylosis. SI joints open. Soft tissues: Unremarkable. Intraperitoneal space: Right upper quadrant clips. Procedure Note Vivian Harper MD - 05/10/2024 PROCEDURE INFORMATION: Exam: XR Lumbosacral Spine Exam date and time: 05/10/2024 9:34 PM Age: 59 years old Clinical indication: Other: Low back pain, lower extremity pain TECHNIQUE: Imaging protocol: Radiologic exam of the lumbosacral spine. Views: 4 or 5 views. COMPARISON: 1. DX XR L SPINE AP AND LATERAL 04/20/2024 11:28 AM 2. MR LUMBAR ROUTINE 02/13/2022 7:10 PM 3. CR XR L SPINE AP AND LATERAL 12/18/2021 4:11 PM FINDINGS: Tubes, catheters and devices: Pelvic clips. Bones/joints: Previous lumbar fusion L2-L5 with posterior decompressionand L3/L4 interbody fusion. Hardware alignment unchanged. No evidence ofhardware complication. Degenerative lumbar spondylosis. SI joints open. Soft tissues: Unremarkable. Intraperitoneal space: Right upper quadrant clips. IMPRESSION IMPRESSION: Stable postsurgical changes L2-L5. THIS DOCUMENT HAS BEEN ELECTRONICALLY SIGNED BY VIVIAN HARPER MD [facility] RADIOLOG[facility] (RAD G ENERAL) documented in this encounter Additional Health Concerns Infection Onset Date Last Indicated Resolved Time Enterovirus (resp)/Rhinovirus 04/29/2024 04/29/2024 documented as of this encounter [...] Power of Attor ayse? No Care Teams Concrete Pipe Plant Supervisor Relationship Specialty Start Date End Date Alexa Martinez MD [address] [place] [phone] PCP - General Family Medicine 03/31/24 documented as of this encounter
--- OUTSIDE RECORDS SUMMARY | 2024-08-21 08:42 | External Medical Summary | Summary of Care ---
Author Name Unknown Organization [facility] Address [address] [place] [address] Phone [phone] Care Team Providers Care Director Of Curriculum Name Role Phone Alexa Martinze MD Primary Care Provider [phone] Encounter Details Date Type Department Care Team (Late st Contact Info) Description 06/25/2024 Telephone [facility], [facility] [address] [place] [address] Slick Mello MD [address] [place] [address] Allergies Active Allergy Reactions Criticality Noted Date Comments Moxifloxacin Hives High 11/04/2014 URTICARIA, HIVES Ciprofloxacin Itching 02/01/2010 Fentanyl Itching 04/04/2018 Altered mental status Metronidazole Hcl Hives 12/12/2007 Iodinated Contrast Media Rash 07/24/2023 Morphine Sulfate 01/08/2011 Hives, black and blue joseph Penicillins Rash 07/14/2003 Sulfa Antibiotics Rash 07/14/2003 Tramadol Rash 12/21/2015 Vicodin 09/19/2006 hives documented as of this encounter (statuses as of 06/26/2024) Medications Medication Sig Dispensed Refills Start Date [...] as of this encounter (statuses as of 06/26/2024) Active Problems Problem Noted Date Diagnosed Date [...] as of this encounter (statuses as of 06/26/2024) Resolved Problems Problem Noted Date Diagnosed Date [...] as of this encounter (statuses as of 06/26/2024) Immunizations Name Administration Dates Next Due COVID-19 mRNA, LNP-s, No Pre serve, 2-Dose Series ([employer]) 02/25/2021,02/04/2021 Hepatitis B, 20+ yrs 06/24/2013,03/18/2013,12/23 MMR [...] Telephone Encounter - Zoraida Art TECH - 06/26/2024 12:55 PM EDT Pt scheduled. She is checking on insurance coverage and will cancel appt if her insurance will not cover the visit. * Telephone Encounter - Zoraida Art TECH - 06/25/2024 10:08 AM EDT Images from the original note were not included. Slick Mello MD P Orthopaedics [place] [employer] Worker Pool/Class ER follow-up. If neurologically stable, next available with Mavis. Please advise if pt is neurologically stable for scheduling purposes. Thank you. documented in this encounter Plan of Treatment Upcoming Encounters Date Type Department Care Team (Late st Contact Info) Description 07/09/2024 1:00 PM EDT Office Visit [facility] [address] [place] [phone] Mavis Randall CRNP [address] [place] [phone] 12/09/2024 2:00 PM EST Office Visit [facility] [address] [place] [phone] Alexa Martinez MD [address] [place] [phone] Scheduled Procedures Name Priority Associated Diagnoses Date/Ti [...] this encounter Medical Devices Implanted Type Area Tape Cutter Device Identifier Shelf Expiration Date Model / Serial / Lot Mesh 10 X 14 [id number] - [id number] Implanted:Qty: 1 on 12/06/2017 by José Miguel Ruiz MD at [place] [facility] [place] N/A: Abdomen GETINGE : MAQUET 04/11/2022 [id number] / / [id number] documented as of this encounter Advance Directives [...] Power of Attor ayse? No Care Teams Director Of Curriculum Relationship Specialty Start Date End Date Alexa Martinez MD [address] [place] [id number] PCP - General Family Medicine 03/31/24 documented as of this encounter
--- OUTSIDE RECORDS SUMMARY | 2024-08-21 08:42 | External Medical Summary | Summary of Care ---
Author Name Unknown Organization [facility] Address [address] [place] [address] Phone [phone] Care Team Providers Care Crewman Main Battle Tank Name Role Phone Alexa Martinez MD Primary Care Provider [phone] Reason for Visit * Reason Onset Date Comments Order Request 04/20/2024 Encounter Details Date Type Department Care Team (Late st Contact Info) Description 04/20/2024 Telephone [facility] [address] [place] [phone] Alexa Martinez MD [address] [place] [address] Order Request Allergies Active Allergy Reactions Criticality Noted Date Comments Moxifloxacin Hives High 11/04/2014 URTICARIA, HIVES Ciprofloxacin Itching 02/01/2010 Fentanyl Itching 04/04/2018 Altered mental status Metronidazole Hcl Hives 12/12/2007 Iodinated Contrast Media Rash 07/24/2023 Morphine Sulfate 01/08/2011 Hives, black and blue joseph Penicillins Rash 07/14/2003 Sulfa Antibiotics Rash 07/14/2003 Tramadol Rash 12/21/2015 Vicodin 09/19/2006 hives documented as of this encounter (statuses as of 04/20/2024) Medications Medication Sig Dispensed Refills Start Date [...] by mouth in the morning. 12/26/2020 Active Budesonide 0.25 MG/2ML Inhalation Suspension (Pulmicort) Add one respule to nasal saline rinse and perform nasal saline irrigation daily as directed. 60 mL 12 09/04/2021 Active Additional Information Patient not taking.Reported on 03/02/2024 Azelastine HCl 0.1 % Nasal Solution Administer 1 [place] into nostril 2 times a day. 30 [...] as of this encounter (statuses as of 04/20/2024) Active Problems Problem Noted Date Diagnosed Date [...] as of this encounter (statuses as of 04/20/2024) Resolved Problems Problem Noted Date Diagnosed Date [...] as of this encounter (statuses as of 04/20/2024) Immunizations Name Administration Dates Next Due COVID-19 mRNA, LNP-s, No Pre serve, 2-Dose Series ([employer]) 02/25/2021,02/04/2021 Hepatitis B, 20+ yrs 06/24/2013,03/18/2013,12/23 MMR [...] Telephone Encounter - Alexa Martinez MD - 04/20/2024 10:54 AM EDT done * Telephone Encounter - Whitney Castellanos OSA - 04/20/2024 10:46 AM EDT Pt is having lower back pain, talked to PCP, but needing xray orders placed. documented in this encounter Plan of Treatment Upcoming Encounters Date Type Department Care Team (Late st Contact Info) Description 04/20/2024 11:15 AM EDT Imaging Radiology, [place] [address] [place] [address] Arrived 12/09/2024 2:00 PM EST Office Visit [facility] [address] [place] [address] Alexa Martinez MD [address] [place] [address] Scheduled Orders Name Type Priority Associated Diagnoses Orde r Schedule XR L SPINE AP AND LATERAL Medical Imaging Routine Osteoarthritis of spine with radiculopathy, lumbar region Ordered: 04/20/2024 Scheduled Procedures Name Priority Associated Diagnoses Date/Ti [...] 03/09/2033 03/09/2023, 10/02/2011 Hepatitis B Completed 06/24/2013, 0511/2012, 12/23/2012 Zoster Vaccines Completed 06/15/2023, 03/09/2023 Influenza Vaccine (FLU shot) Completed , 08/31/2022, 11/14/2021, Additional history exists GARDASIL-HPV IMMUNIZATION SERIES Aged Out No longer eligible based on patient's age to complete this topic MENINGOCOCCAL (MENACTRA/MENVEO) Aged Out No longer eligible based on patient's age to complete this topic documented as of this encounter Medical Devices Implanted Type Area Senior Software Qa Analyst Device Identifier Shelf Expiration Date Model / Serial / Lot Mesh 10 X 14 [id number] - [id number] Implanted:Qty: 1 on 12/06/2017 by José Miguel Ruiz MD at OR [facility] [place] N/A: Abdomen GETINGE : MAQUET 04/11/2022 [id number] / / [id number] documented as of this encounter Visit Diagnoses [...] Power of Attor ayse? No Care Teams Crewman Main Battle Tank Relationship Specialty Start Date End Date Alexa Martinez MD [address] [place] [address] PCP - General Family Medicine 03/31/24 documented as of this encounter
--- OUTSIDE RECORDS SUMMARY | 2024-08-21 08:43 | External Medical Summary ---
Author Name Unknown Address Unknown Organization [id number]:LABORATORY [facility] [place] - [address] [place] [address] Laboratory Report Ordering Provider Test Date Status TREVOR VERDIN 03/31/2024 13:29:14 Final Observation Date Value Abnormality Reference (Units ) Status Iron 03/31/2024 13:29:14 50 33-151 (ug /dL) Final Iron-binding capacity 03/31/2024 13:29:14 316 250-425 (ug/dL) Final Transferrin Sat % 03/31/2024 13:29:14 16 15 -55 (%) Final Performing Location LABORATORY C - [address] [place] [address]
--- OUTSIDE RECORDS SUMMARY | 2024-08-21 08:43 | External Medical Summary ---
Author Name Unknown Address Unknown Organization [id number]:[place] [facility] [place] [address] [place] [address] Laboratory Report Ordering Provider Test Date Status TREVOR VERDIN 03/31/2024 13:29:14 Final Observation Date Value Abnormality Reference (Units ) Status BUN 03/31/2024 13:29:14 5 Below low normal 6-20 (mg/dL) Final Creatinine 03/31/2024 13:29:14 0.8 0.5-1.0 (mg/dL) Final Glomerular filtration rate/1.73 sq M.predicted [Volume Rate/Area] in Serum, Plasma or Blood by Creatinine-based formula (CKD-EPI) 03/31/2024 13:29:14 90 >=60 (mL/min) Final eGFR is calculated based on the CKD-EPI 2020 equation Sodium 03/31/2024 13:29:14 143 135-146 (m mol/L) Final Potassium 03/31/2024 13:29:14 4.3 3.5-5.1 (m mol/L) Final Cl 03/31/2024 13:29:14 105 98-107 (mm ol/L) Final CO2 03/31/2024 13:29:14 25 22-32 (mmo l/L) Final Anion gap 03/31/2024 13:29:14 13 7-15 (mmol /L) Final Glucose 03/31/2024 13:29:14 89 70-120 (mg /dL) Final Calcium 03/31/2024 13:29:14 9.7 8.4-10.2 ( mg/dL) Final Performing Location [facility] [place] [facility] [address] [facility] [address]
--- OUTSIDE RECORDS SUMMARY | 2024-08-21 08:43 | External Medical Summary ---
Author Name Unknown Address Unknown Organization [id number]:[place]ORY [facility] [place] [address] [place] [address] Laboratory Report Ordering Provider Test Date Status TREVOR VERDIN 03/31/2024 13:29:14 Final Observation Date Value Abnormality Reference (Units ) Status Ferritin 03/31/2024 13:29:14 105 13-150 (ng /mL) Final Postmenopausal women have hi gher ferritin levels than pre-menopausal women. The above reference interval is based on pre-menopausal women. Performing Location LABORATORY [facility] - [address] [place] [address]
--- OUTSIDE RECORDS SUMMARY | 2024-08-21 08:43 | External Medical Summary ---
Author Name Unknown Address Unknown Organization [id number]:LABORATORY [facility] [place] - [address] [place] [id number] Laboratory Report Ordering Provider Test Date Status LATONIA NOWAK 03/02/2024 10:30:59 Final Observation Date Value Abnormality Reference (Units) Status Bacteria identified in Specimen by Culture 03/02/2024 10:30:59 No significant growth Final Test: Culture, Urine, Quanti tative
Specimen Source: Urine, Clean Catch
Specimen Type: Urine
Specimen Date: 03/02/2024 10:30 AM
Result Date: 03/03/2024 1:15 PM
Result Status: Final result
Resulting Lab: LABORATORY [facility] [place]
[address]
[facility] [address]

CULTURE

No significant growth

null Performing Location LABORATORY [facility] [place] - [address] [facility] [address]
--- OUTSIDE RECORDS SUMMARY | 2024-08-21 08:43 | External Medical Summary | Summary of Care ---
Author Name Unknown Organization [facility] Address [address] [place] [address] Phone [phone] Care Team Providers Care Production Machine Tender Name Role Phone Azam Bullard MD Primary Care Provider [phone] Reason for Referral * Evaluate & Treat - Unlimited Visits (Within 30 days (routine)) - Pending Review Specialty Diagnoses / Procedures Referred By Gin faith Referred To Contact Otolaryngology Diagnoses Tinnitus of both ears Chronic sinusitis, unspecified location Lauren Shore CRNP [address] [facility] [address] [place] [address] Referral ID Status Reason Start Date Expiration Date Visits Requested Visits Authorized [id number] Pending Review Specialty Services Required 03/02/[phone] Question Answer Referral Priority Within 30 days (routine) Where should this appointment be scheduled? External Reason for Referral Nasal/Sinus/Allergy Conditions Specific Condition: Chronic Sinusitis Reason for Visit * Reason Comments Follow Up F/u for ongoing sx. conv care on 01/30/24. C/o head congestion, BL eye pain and ear pain. Pressure in forehead. Fever. Nausea. Post nasal drip. On advil cold and sinus. Has seen ENT before.Ongoing UTI sx. Urine has a foul odor and burning with urination. Neg cx on 01/29. Finished cefdinir from [facility] and sinus and uti sx have not gone away or improved. Has tylenol #3 prn. Used within the last wk. Asking for refill. Encounter Details Date Type Department Care Team (Late st Contact Info) Description 03/02/2024 9:40 AM EDT Office Visit [facility] [place], [place] [address] [phone] Lauren Shore CRNP [address] [address] UTI symptoms*; S/P hernia repair; Tinnitus of both ears; Chronic sinusitis, unspecified location; Suppurative otitis media of left ear, unspecified chronicity Allergies Active Allergy Reactions Criticality Noted Date Comments Moxifloxacin Hives High 11/04/2014 URTICARIA, HIVES Ciprofloxacin Itching 02/01/2010 Fentanyl Itching 04/04/2018 Altered mental status Metronidazole Hcl Hives 12/12/2007 Iodinated Contrast Media Rash 07/24/2023 Morphine Sulfate 01/08/2011 Hives, black and blue joseph Penicillins Rash 07/14/2003 Sulfa Antibiotics Rash 07/14/2003 Tramadol Rash 12/21/2015 Vicodin 09/19/2006 hives documented as of this encounter (statuses as of 03/02/2024) Medications Medication Sig Dispensed Refills Start Date [...] HCl 0.1 % Nasal Solution Administer 1 [place] into nostril 2 times a day. 30 mL 12 09/04/2021 Active Additional Information Patient not taking.Reported on 03/02/2024 Ammonium Lactate 12 % External CreamIndications:Alvin account review specialist keratosis,Seborrheic keratosis,Xerosis cutis Apply topically to affected area as needed for Dry Skin. Apply to dry skin nightly 385 g 2 01/18/2023 Active Zinc 100 MG Oral Tablet Take 1 Tablet by mouth every morning. 0 Active Elderberry 500 MG Oral Capsule Take by mouth every evening. 0 Active Meclizine HCl 25 MG Oral Tablet (Antivert)Indication s:Vertigo Take 1 Tablet by mouth 3 times a day as needed for Dizziness. 30 Tablet 1 05/02/2023 Active Vitamin C 1000 MG Oral Tablet Take 1 Tablet by mouth in the morning. 0 Active Meclizine HCl 25 MG Oral Tablet (Antivert)Indication s:Vertigo Take 1 Tablet by mouth 3 times a day as needed for Dizziness. 30 Tablet 0 07/16/2023 Active Albuterol Sulfate HFA 108 (90 Base) MCG/ACT Inhalation Aerosol SolutionIndications: Wheezing,Bronchitis, complicated Inhale 2 Puffs by mouth every 4 hours as needed for Wheezing. 18 g 5 08/30/2023 Active Lidocaine 5 % External Patch (Lidoderm)Indication [...] the morning. 90 Capsule 3 08/30/2023 Active methylPREDNISolone 4 MG Oral Tablet Therapy Pack (Medrol Dosepack)Indications :Chronic pain of both shoulders follow package directions 21 Tablet 0 08/30/2023 Active Additional Information Patient not taking.Reported on 03/02/2024 PARoxetine HCl 40 MG Oral Tablet (pAXil) Take 1 tablet by mouth once daily 90 Tablet 3 10/04/2023 Active Montelukast Sodium 10 MG Oral Tablet (Singulair) Take 1 tablet by mouth once daily 90 Tablet 0 12/07/2023 Active Levocetirizine Dihydrochloride 5 MG Oral TabletIndications:No nallergic rhinitis TAKE 1 TABLET BY MOUTH ONCE DAILY IN THE EVENING 90 Tablet 0 12/07/2023 Active PARoxetine HCl 10 MG Oral Tablet (pAXil)Indications:M oderate episode of recurrent major depressive disorder (HCC) TAKE 1 TABLET BY MOUTH IN THE MORNING, ALONG WITH YOUR 40 MG TABLET FOR A TOTAL DOSE OF 50 MG 90 Tablet 1 02/18/2024 Active Acetaminophen-Codein e 300-30 MG Oral TabletIndications:S/ P hernia repair Take 1 Tablet by mouth every 6 hours as needed for Pain, Moderate. 28 Tablet 0 03/02/2024 Active predniSONE 10 MG Oral Tablet (Deltasone) Take 5 tabs for 2 days, 4 tabs for 2 days, 3 tabs for 2 days, 2 tabs for 2 days 1 tab for 2 days 30 Tablet 0 03/02/2024 Active Cefdinir 300 MG Oral Capsule (Omnicef) Take 1 Capsule by mouth in the morning and 1 Capsule before bedtime. Do all this for 10 days. 20 Capsule 0 03/02/2024 03/12/20 24 Active Acetaminophen-Codein e 300-30 MG Oral TabletIndications:S/ P hernia repair Take 1 Tablet by mouth every 6 hours as needed for Pain, Moderate. 28 Tablet 0 08/30/2023 03/02/20 24 Discontinu ed(Refill) documented as of this encounter (statuses as of 03/02/2024) Active Problems Problem Noted Date Diagnosed Date Obesity, Class II, BMI 35-39.9, isolated (see ac tual BMI) 02/06/2022 Advanced directives, counseling/discussion 04/28 Feeling of incomplete bladder emptying 1 Stress incontinence 04/28/2021 Urge incontinence of urine 04/28/2021 Urinary incontinence, nocturnal enuresis 021 Moderate episode of recurrent major depressive d isorder 12/29/2020 DDD (degenerative disc disease), cervical 2018 Chronic bilateral lower abdominal pain 8 Ventral hernia 12/10/2017 MEDICATION USE AGREEMENT 08/06/2016 Irritable bowel syndrome with diarrhea 6 Thyroid nodule 06/09/2016 Overview: R thyroid nodule biopsied 07/03, pathology benign Lumbar disc herniation 05/02/2016 Lumbar radiculopathy 05/02/2016 Osteoarthritis of spine with radiculopathy, lumb ar region 05/02/2016 Lumbar spinal stenosis 05/02/2016 ETD (eustachian tube dysfunction) 02/09/2016 Hypokalemia 12/26/2015 Nonallergic rhinitis 09/19/2006 Conjunctivitis 09/19/2006 Chronic sinusitis 09/19/2006 Tobacco use disorder 09/19/2006 GERD (gastroesophageal reflux disease) Dyslipidemia, goal to be determined Depression with anxiety documented as of this encounter (statuses as of 03/02/2024) Resolved Problems Problem Noted Date Diagnosed Date Resolved Date Food insecurity 10/01/2022 07/04/2023 Overview: Per [facility] Protocol COPD, group B, by GOLD 2017 classification 07/26/2020 07/13/2021 Overview: Per COPD GOLD Classification Major depressive disorder, r ecurrent, unspecified 10/22/2019 01/12/2021 Chronic obstructive pulmonary disease 04/24/2019 07/28/2020 Overview: Per COPD GOLD Classification Smoking addiction 02/09/2016 02/18/2018 Seasonal allergies 02/09/2016 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/18/2018 Wheezing 09/19/2006 07/13/2021 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 documented as of this encounter (statuses as of 03/02/2024) Immunizations Name Administration Dates Next Due COVID-19 mRNA, LNP-s, No Pre serve, 2-Dose Series ([employer]) 02/25/2021,02/04/2021 Hepatitis B, 20+ yrs 06/24/2013,03/18/2013,12/23 MMR [...] Sign Reading Time Taken Comments Blood Pressure 122/78 03/02/2024 9:20 AM EDT Pulse 85 03/02/2024 9:20 AM EDT Temperature 36.6 C (97.9 F) 03/02/2024 9:20 AM ED T Respiratory Rate 15 03/02/2024 9:20 AM EDT Oxygen Saturation 96% 03/02/2024 9:20 AM EDT Inhaled Oxygen Concentration - - Weight 84.5 kg (186 lb 4.8 oz) 03/02/2024 9:20 A M EDT Height - - Body Mass Index 35.49 11/21/2023 11:11 AM EST documented in this [...] as of this encounter Progress Notes * Lauren Shore CRNP - 03/02/2024 9:45 AM EDT Images from the original note were not included. History of Present Illness Ariana Tuttle is a 58 year old female that presents for Follow Up (F/u for ongoing sx. conv care on 01/30/24. C/o head congestion, BL eye pain and ear pain. Pressure in forehead. Fever. Nausea. Post nasal drip. On advil cold and sinus. Has seen ENT before./Ongoing UTI sx. Urine has a foul odor and burning with urination. Neg cx on 01/29. Finished cefdinir from [facility] and sinus and uti sx have not goneaway or improved./ Has tylenol #3 prn. Used within the last wk. Asking for refill. ) She is concerned about ongoing sinus congestion and headaches. Symptoms have been ongoing for threeyears. She reports swelling in her sinuses. She reports fever and sweats, nausea, post nasal drip. Green nasal drainage and facial pressure. The ear fullness started last when she went over the [place] last . No vomiting, cough. Taking Advil cold and sinus. She states that she has severe allergies and has been on Zyrtec for years. She is using nettipot and states that nasal sprays do not help. She has seen ENT who told her that her symptoms are coming from a TMJ problem. She would like a second opinion from ENT outside of [facility]. She also reports urine odor, burning, urgency, leaking urine and frequency. Vaginal itching. Deniesvaginal discharge or dryness. She is switching to [place] with Dr. Martinez next month. Physical Exam Vitals: 03/02/24 0920 Temp: 36.6 C (97.9 F) Pulse: 85 Resp: 15 SpO2: 96% BP: 122/78 Physical Exam Vitals and nursing note reviewed. Constitutional: General: She is not in acute distress. Appearance: Normal appearance. She is obese. She is not ill-appearing. HENT: Head: Normocephalic and atraumatic. Right Ear: Ear canal normal. A middle ear effusion is present. Left Ear: Ear canal normal. A middle ear effusion is present. Tympanic membrane is erythematous. Nose: Right Sinus: Frontal sinus tenderness present. Left Sinus: Frontal sinus tenderness present. Eyes: Extraocular Movements: Extraocular movements intact. Cardiovascular: Rate and Rhythm: Normal rate and regular rhythm. Pulses: Normal pulses. Heart sounds: Normal heart sounds. No murmur heard. No friction rub. No gallop. Pulmonary: Effort: Pulmonary effort is normal. No respiratory distress. Breath sounds: Normal breath sounds. No wheezing, rhonchi or rales. Musculoskeletal: Cervical back: Normal range of motion and neck supple. No tenderness. Lymphadenopathy: Cervical: No cervical adenopathy. Skin: General: Skin is warm and dry. Neurological: General: No focal deficit present. Mental Status: She is alert and oriented to person, place, and time. Psychiatric: Behavior: Behavior normal. I have reviewed the following results: CMP and Urinalysis, POC Assessment and Plan UTI symptoms UA unremarkable with only trace blood. Sent for culture. - URINALYSIS, POINT OF CARE (ENTER/EDIT) - CULTURE, URINE, QUANTITATIVE S/P hernia repair Refilled. - Acetaminophen-Codeine 300-30 MG Oral Tablet; Take 1 Tablet by mouth every 6 hours as needed for Pain, Moderate. Tinnitus of both ears - ADULT/PEDS OTOLARYNGOLOGY REFERRAL OP Chronic sinusitis, unspecified location Recommend switching from Zyrtec to another long acting antihistamine to see if symptoms improve. Recommend saline nasal flushes and steroidal nasal spray as well. - ADULT/PEDS OTOLARYNGOLOGY REFERRAL OP Suppurative otitis media of left ear, unspecified chronicity Antibiotics as prescribed. Wrap-Up Follow Up: Return if symptoms worsen or fail to improve. Time: I spent a total of 30-39 minutes (exact time 30 mins) on the date of service in preparation, delivery, and documentation of the care provided to Ariana Tuttle excluding any time spent in the performance of separately billed services. documented in this encounter Nursing Notes * Arpita Suresh CMA - 03/02/2024 9:16 AM EDT Chief Complaint Patient presents with Follow Up F/u for ongoing sx. conv care on 01/30/24. C/o head congestion, BL eye pain and ear pain. Pressure in forehead. Fever. Nausea. Post nasal drip. On advil cold and sinus. Has seen ENT before. Ongoing UTI sx. Urine has a foul odor and burning with urination. Neg cx on 01/29. Finished cefdinirfrom [facility] and sinus and uti sx have not gone away or improved. Has tylenol #3 prn. Used within the last wk. Asking for refill. documented in this encounter Plan of Treatment Upcoming Encounters Date Type Department Care Team (Late st Contact Info) Description 03/31/2024 1:20 PM EDT Office Visit [facility] [address] [place] [place] [phone] Alexa Martinez MD [address] [place] [place] [phone] Scheduled Orders Name Type Priority Associated Diagnoses Orde r Schedule CULTURE, URINE, QUANTITATIVE Lab Routine UTI symptoms Ordered: 03/02/2024 Scheduled Procedures Name Priority Associated Diagnoses Date/Ti me LAMINOPLASTY POSTERIOR CERVICAL Cervical spinal stenosis LAMINOPLASTY POSTERIOR CERVI CHRIS RECONSTRUCTION POST ELEMENTS Cervical spinal stenosis LAMINECTOMY FACETECTOMY AND FORAMINOTOMY POSTERIOR CERVICAL Cervical spinal stenosis LAMINECTOMY FACETECTOMY AND FORAMINOTOMY ADDITIONAL LEVELS Cervical spinal stenosis Scheduled Referrals Name Type Priority Associated Diagnoses Orde r Schedule ADULT/PEDS OTOLARYNGOLOGY REFERRAL OP Referral Within 30 days (routine) Tinnitus of both ears Chronic sinusitis, unspecified location Ordered: 03/02/2024 Health Maintenance Due Date Last Done Comments Cologuard 2008 Fecal Occult Blood Test 2008 Sigmoidoscopy 2008 COVID-19 Vaccine (2022- season) 2023 02/25/2021, 02/04/2021 Mammogram 09/02/2024 09/02/2023, 08/18, 05/10/2020, Additional history exists Diabetes Screening 10/21/2026 10/21/2023, 1 12/22/2022, 06/17/2023, Additional history exists Pneumococcal Vaccine: Pediatrics (0 to 5 Years) and At-Risk Patients (6 to 64 Years) (3 of 3 - PPSV23 or PCV20) 2028 10/15/2017, 10/02/2011 Lipid Panel 06/17/2028 06/17/2023, 08/18, 04/13/2021, Additional history exists Colonoscopy 01/08/2029 01/08/2019, 12/20, 10/08/2016, Additional history exists Colorectal Cancer Screening 01/08/2029 DTaP,Tdap,and Td Vaccines (3 - Td or [...] this encounter Medical Devices Implanted Type Area Engagement Quality Consultant Device Identifier Shelf Expiration Date Model / Serial / Lot Mesh 10 X 14 [id number] - [id number] Implanted:Qty: 1 on 12/06/2017 by José Miguel Ruiz MD at OR [facility] [place] N/A: Abdomen GETINGE : MAQUET 04/11/2022 [id number] / / [id number] documented as of this encounter Procedures Procedure Name Priority Date/Time Associated Diagnosis Comments URINALYSIS, POINT OF CARE (ENTER/EDIT) Routine 03/02/2024 9:32 AM EDT UTI symptoms documented in this encounter Results * URINALYSIS, POINT OF CARE (ENTER/EDIT) (03/02/2024 9:32 AM EDT) Color, Urine Yellow Yellow or Light Yellow Clarity, Urine Clear Clear Glucose, Urine Negative Negative mg/dL Bilirubin, Urine Negative Negative Ketone, Urine Negative Negative mg/dL Specific [place], Urine 1.005 1.003 - 1.030 Blood, Urine Trace-intact Negative pH, Urine 5.5 5.0 - 7.5 units Protein, Urine Negative Negative mg/dL Urobilinogen, Urine 0.2 0.2 - 1.0 mg/dL Nitrite, Urine Negative Negative Esterase, Urine Negative Negative Urine 03/02/2024 9:32 AM EDT Lauren [facility] POINT OF CARE TEST ENTER/EDIT ORDERABLES documented in this encounter Visit Diagnoses Diagnosis UTI symptoms- Primary Other symptoms involving urinary system S/P hernia repair Other postprocedural status Tinnitus of both ears Unspecified tinnitus Chronic sinusitis, unspecified location Suppurative otitis media of left ear, unspecified chronicity documented in this encounter Advance Directives Latest [...] the patient have Health Care Power of Emergency Medical Technician/Driver? No Care Teams Production Machine Tender Relationship Specialty Start Date End Date Azam Bullard MD [address] [id number] PCP - General Family Medicine 02/19/23 documented as of this encounter
--- OUTSIDE RECORDS SUMMARY | 2024-08-21 08:43 | External Medical Summary | Summary of Care ---
Author Name Unknown Organization [facility] Address [address] [place] [address] Phone [phone] Care Team Providers Care Head Of Mobile Name Role Phone Tea Mcdonald MD Primary Care Provider [phone] Reason for Visit * Reason Comments eRx-Medication Refill Encounter Details Date Type Department Care Team (Late st Contact Info) Description 03/03/2024 Refill [facility] [address] [place] [phone] Tea Mcdonald MD [address] [place], [place] [id number] Nonallergic rhinitis Allergies Active Allergy Reactions Criticality Noted Date Comments Moxifloxacin Hives High 11/04/2014 URTICARIA, HIVES Ciprofloxacin Itching 02/01/2010 Fentanyl Itching 04/04/2018 Altered mental status Metronidazole Hcl Hives 12/12/2007 Iodinated Contrast Media Rash 07/24/2023 Morphine Sulfate 01/08/2011 Hives, black and blue joseph Penicillins Rash 07/14/2003 Sulfa Antibiotics Rash 07/14/2003 Tramadol Rash 12/21/2015 Vicodin 09/19/2006 hives documented as of this encounter (statuses as of 03/04/2024) Medications Medication Sig Dispensed Refills Start Date End Date Status MULTI-VITAMIN/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 . 0 Active albuterol sulfate (PROVENTIL) (2.5 MG/3ML) 0.083% nebulizer solutionIndications :Wheezing Inhale 1 Vial via nebulizer every 6 hours as needed for Wheezing. 120 Vial 11 8 Active Cranberry 1000 MG Oral Capsule Take 1,000 mg by mouth daily. 0 Active Vitamin D (Cholecalciferol) 25 MCG (1000 UT) Oral Capsule Take 2 Capsules by mouth in the morning. 0 1 Active Budesonide 0.25 MG/2ML Inhalation Suspension (Pulmicort) Add one respule to nasal saline rinse and perform nasal saline irrigation daily as directed. 60 mL 12 1 Active Additional Information Patient not taking.Reported on 03/02/2024 Azelastine HCl 0.1 % Nasal Solution Administer 1 [place] into nostril 2 times a day. 30 mL 12 1 Active Additional Information Patient not taking.Reported on 03/02/2024 Ammonium Lactate 12 % External CreamIndications:St ucco keratosis,Seborrhei c keratosis,Xerosis cutis Apply topically to affected area as needed for Dry Skin. Apply to dry skin nightly 385 g 2 3 Active Zinc 100 MG Oral Tablet Take 1 Tablet by mouth every morning. 0 Active Elderberry 500 MG Oral Capsule Take by mouth every evening. 0 Active Meclizine HCl 25 MG Oral Tablet (Antivert)Indicatio ns:Vertigo Take 1 Tablet by mouth 3 times a day as needed for Dizziness. 30 Tablet 1 3 Active Vitamin C 1000 MG Oral Tablet Take 1 Tablet by mouth in the morning. 0 Active Meclizine HCl 25 MG Oral Tablet (Antivert)Indicatio ns:Vertigo Take 1 Tablet by mouth 3 times a day as needed for Dizziness. 30 Tablet 0 3 Active Albuterol Sulfate HFA 108 (90 Base) MCG/ACT Inhalation Aerosol SolutionIndications :Wheezing,Bronchiti s, complicated Inhale 2 Puffs by mouth every 4 hours as needed for Wheezing. 18 g 5 3 Active Lidocaine 5 % External Patch (Lidoderm)Indicatio ns:Neuropathy Place 1 Patch topically on the skin daily. 30 Patch 3 3 Active Simvastatin 20 MG Oral Tablet (Zocor)Indications: Dyslipidemia, goal to be determined Take 1 Tablet by mouth every evening. 90 Tablet 3 3 Active Omeprazole 40 MG Oral Capsule Delayed Release (PriLOSEC)Indicatio ns:Gastroesophageal reflux disease without esophagitis Take 1 Capsule by mouth in the morning. 90 Capsule 3 3 Active methylPREDNISolone 4 MG Oral Tablet Therapy Pack (Medrol Dosepack)Indication s:Chronic pain of both shoulders follow package directions 21 Tablet 0 3 Active Additional Information Patient not taking.Reported on 03/02/2024 PARoxetine HCl 40 MG Oral Tablet (pAXil) Take 1 tablet by mouth once daily 90 Tablet 3 3 Active PARoxetine HCl 10 MG Oral Tablet (pAXil)Indications: Moderate episode of recurrent major depressive disorder (HCC) TAKE 1 TABLET BY MOUTH IN THE MORNING, ALONG WITH YOUR 40 MG TABLET FOR A TOTAL DOSE OF 50 MG 90 Tablet 1 4 Active Acetaminophen-Codei ne 300-30 MG Oral TabletIndications:S /P hernia repair Take 1 Tablet by mouth every 6 hours as needed for Pain, Moderate. 28 Tablet 0 4 Active predniSONE 10 MG Oral Tablet (Deltasone) Take 5 tabs for 2 days, 4 tabs for 2 days, 3 tabs for 2 days, 2 tabs for 2 days 1 tab for 2 days 30 Tablet 0 4 Active Cefdinir 300 MG Oral Capsule (Omnicef) Take 1 Capsule by mouth in the morning and 1 Capsule before bedtime. Do all this for 10 days. 20 Capsule 0 4 03/12/20 24 Active Montelukast Sodium 10 MG Oral Tablet (Singulair) Take 1 tablet by mouth once daily 90 Tablet 3 4 Active Levocetirizine Dihydrochloride 5 MG Oral TabletIndications:N onallergic rhinitis TAKE 1 TABLET BY MOUTH ONCE DAILY IN THE EVENING 90 Tablet 3 4 Active Montelukast Sodium 10 MG Oral Tablet (Singulair) Take 1 tablet by mouth once daily 90 Tablet 0 4 03/04/20 24 Discontinued Levocetirizine Dihydrochloride 5 MG Oral TabletIndications:N onallergic rhinitis TAKE 1 TABLET BY MOUTH ONCE DAILY IN THE EVENING 90 Tablet 0 4 04/17/20 24 Discontinued documented as of this encounter (statuses as of 03/04/2024) Active Problems Problem Noted Date Diagnosed Date [...] as of this encounter (statuses as of 03/04/2024) Resolved Problems Problem Noted Date Diagnosed Date Resolved Date Food insecurity 10/01/2022 07/04/2023 Overview: Per [facility] Protocol COPD, group B, by GOLD 2017 classification 07/26/2020 07/13/2021 Overview: Per COPD GOLD Classification Major depressive disorder, r ecurrent, unspecified 10/22/2019 01/12/2021 Chronic obstructive pulmonary disease 04/24/2019 07/28/2020 Overview: Per COPD GOLD Classification Smoking addiction 02/09/2016 02/18/2018 Seasonal allergies 02/09/2016 1 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/18/2018 Wheezing 09/19/2006 07/13/2021 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 documented as of this encounter (statuses as of 03/04/2024) Immunizations Name Administration Dates Next Due COVID-19 mRNA, LNP-s, No Pre serve, 2-Dose Series ([employer]) 02/25/2021,02/04/2021 Hepatitis B, 20+ yrs 06/24/2013,03/18/2013,12/23 MMR [...] encounter Miscellaneous Notes * Telephone Encounter - Queta Argueta RPh - 03/04/2024 9:57 AM EDTSigned Prescriptions: Disp Refills Montelukast Sodium 10 MG Oral Tablet (Sing*90 Tab*3 Sig: Take 1 tablet by mouth once dailyAuthorizing Provider: TEA MCDONALD User: QUETA ARGUETA Levocetirizine Dihydrochloride 5 MG Oral T*90 Tab*3 Sig: TAKE 1 TABLET BY MOUTH ONCE DAILY IN THE EVENING Authorizing Provider: TEA MCDONALD User: QUETA ARGUETA documented in this encounter Plan of Treatment Upcoming Encounters Date Type Department Care Team (Late st Contact Info) Description 03/31/2024 1:20 PM EDT Office Visit [facility] [address] [place] [phone] Alexa Martinez MD [address] [place] [phone] Scheduled Procedures Name Priority Associated Diagnoses Date/Ti [...] this encounter Medical Devices Implanted Type Area Federal Law Clerk Device Identifier Shelf Expiration Date Model / Serial / Lot Mesh 10 X 14 [id number] - [id number] Implanted:Qty: 1 on 12/06/2017 by José Miguel Ruiz MD at OR [facility] [place] N/A: Abdomen GETINGE : MAQUET 04/11/2022 [id number] documented as of this encounter Visit Diagnoses Diagnosis Nonallergic rhinitis Chronic rhinitis documented in this encounter Advance Directives Latest [...] the patient have Health Care Power of Rn Clinical Resource? No Care Teams Head Of Mobile Relationship Specialty Start Date End Date Tea Mcdonald MD [address] [place] [id number] PCP - General Family Medicine 02/19/23 documented as of this encounter
--- OUTSIDE RECORDS SUMMARY | 2024-08-21 08:43 | External Medical Summary | Summary of Care ---
Author Name Unknown Organization [facility] Address [address] [place] [address] Phone [phone] Care Team Providers Care Oil Developer Name Role Phone Azam Bullard MD Primary Care Provider [phone] Reason for Referral * Evaluate & Treat - Unlimited Visits (Within 30 days (routine)) - Pending Review Specialty Diagnoses / Procedures Referred By Gin faith Referred To Contact Otolaryngology Diagnoses Tinnitus of both ears Chronic sinusitis, unspecified location Lauren Shore CRNP [address] [facility] [place] [address] Referral ID Status Reason Start Date Expiration Date Visits Requested Visits Authorized [id number] Pending Review Specialty Services Required 03/02/2024 999 [...] Description 03/02/2024 9:40 AM EDT Office Visit [facility] [place], [place] [address] [phone] Lauren Shore CRNP [address] [id number] UTI symptoms*; S/P hernia repair; Tinnitus of [...] HCl 0.1 % Nasal Solution Administer 1 [place] into nostril 2 times a day. 30 mL 12 09/04/2021 Active Additional Information Patient not taking.Reported on 03/02/2024 Ammonium Lactate 12 % External CreamIndications:Alvin associate account manager keratosis,Seborrheic keratosis,Xerosis cutis Apply topically to [...] mRNA, LNP-s, No Pre serve, 2-Dose Series ([employer]) 02/25/2021,02/04/2021 Hepatitis B, 20+ yrs 06/24/2013,03/18/2013,12/23 MMR [...] a second opinion from ENT outside of [facility]. She also reports urine odor, burning, urgency, leaking urine and frequency. Vaginal itching. Deniesvaginal discharge or dryness. She is switching to [place] with Dr. Martinez next month. Physical Exam [...] Description 03/31/2024 1:20 PM EDT Office Visit [facility] [address] [place] [address] Alexa Martinez MD [address] [place] [address] Pending Results Name Type Priority Associated Diagnoses Date /Time CULTURE, URINE, QUANTITATIVE Lab Routine UTI symptoms 03/02/2024 10:30 AM EDT Scheduled Procedures Name Priority Associated Diagnoses [...] Test 2008 Sigmoidoscopy 2008 COVID-19 Vaccine (3 2022- season) 2023 02/25/2021, 02/04/2021 Mammogram 09/02/2024 09/02/2023, [...] this encounter Medical Devices Implanted Type Area Philosophy Specialist Device Identifier Shelf Expiration Date Model / Serial / Lot Mesh 10 X 14 [id number] - [id number] Implanted:Qty: 1 on 12/06/2017 by José Miguel Ruiz MD at OR [facility] [place] N/A: Abdomen GETINGE : MAQUET 04/11/2022 [id number] / / [id number] documented as of this encounter Procedures Procedure [...] Negative Ketone, Urine Negative Negative mg/dL Specific [place], Urine 1.005 1.003 - 1.030 Blood, Urine [...] the patient have Health Care Power of Behavioral Pediatrician? No Care Teams Oil Developer Relationship Specialty Start Date End Date Azam Bullard MD [address] [phone] PCP - General Family Medicine 02/19/23 documented as of this encounter
--- OUTSIDE RECORDS SUMMARY | 2024-08-21 08:43 | External Medical Summary | Summary of Care ---
Author Name Unknown Organization [facility] Address [address] [place] [address] Phone [phone] Care Team Providers Care Youth Officer Name Role Phone Alexa Martinez MD Primary Care Provider Reason for Visit * Reason Comments NEW PATIENT Establish care Encounter Details Date Type Department Care Team (Late st Contact Info) Description 03/31/2024 1:20 PM EDT Office Visit [facility] [address] [place] [address] Alexa Martinez MD [address] [place] [address] Restless legs syndrome*; Moderate episode of recurrent major depressive disorder (HCC); Elevated hemoglobin (HCC); Thyroid nodule; Dyslipidemia, goal to be determined Allergies Active Allergy Reactions Criticality Noted Date Comments Moxifloxacin Hives High 11/04/2014 URTICARIA, HIVES Ciprofloxacin Itching 02/01/2010 Fentanyl Itching 04/04/2018 Altered mental status Metronidazole Hcl Hives 12/12/2007 Iodinated Contrast Media Rash 07/24/2023 Morphine Sulfate 01/08/2011 Hives, black and blue joseph Penicillins Rash 07/14/2003 Sulfa Antibiotics Rash 07/14/2003 Tramadol Rash 12/21/2015 Vicodin 09/19/2006 hives documented as of this encounter (statuses as of 03/31/2024) Medications Medication Sig Dispensed Refills Start Date End Date Status 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 . 0 Active albuterol sulfate (PROVENTIL) (2.5 MG/3ML) 0.083% nebulizer solutionIndications :Wheezing Inhale 1 Vial via nebulizer every 6 hours as needed for Wheezing. 120 Vial 11 08/14/20 18 Active Cranberry 1000 MG Oral Capsule Take 1,000 mg by mouth daily. 0 Active Vitamin D (Cholecalciferol) 25 MCG (1000 UT) Oral Capsule Take 2 Capsules by mouth in the morning. 0 12/26/19 21 Active Budesonide 0.25 MG/2ML Inhalation Suspension (Pulmicort) Add one respule to nasal saline rinse and perform nasal saline irrigation daily as directed. 60 mL 12 09/04/20 Active Additional Information Patient not taking.Reported on 03/02/2024 Azelastine HCl 0.1 % Nasal Solution Administer 1 [place] into nostril 2 times a day. 30 mL 12 09/04/20 Active Additional Information Patient not taking.Reported on 03/02/2024 Ammonium Lactate 12 % External CreamIndications:St ucco keratosis,Seborrhei c keratosis,Xerosis cutis Apply topically to affected area as needed for Dry Skin. Apply to dry skin nightly 385 g 2 01/19/20 23 Active Meclizine HCl 25 MG Oral Tablet (Antivert)Indicatio ns:Vertigo Take 1 Tablet by mouth 3 times a day as needed for Dizziness. 30 Tablet 1 05/02/20 23 Active Meclizine HCl 25 MG Oral Tablet (Antivert)Indicatio ns:Vertigo Take 1 Tablet by mouth 3 times a day as needed for Dizziness. 30 Tablet 0 07/16/20 23 Active Albuterol Sulfate HFA 108 (90 Base) MCG/ACT Inhalation Aerosol SolutionIndications :Wheezing,Bronchiti s, complicated Inhale 2 Puffs by mouth every 4 hours as needed for Wheezing. 18 g 5 08/30/20 23 Active Lidocaine 5 % External Patch (Lidoderm)Indicatio ns:Neuropathy Place 1 Patch topically on the skin daily. 30 Patch 3 08/30/20 23 Active Simvastatin 20 MG Oral Tablet (Zocor)Indications: Dyslipidemia, goal to be determined Take 1 Tablet by mouth every evening. 90 Tablet 3 08/30/20 23 Active Omeprazole 40 MG Oral Capsule Delayed Release (PriLOSEC)Indicatio ns:Gastroesophageal reflux disease without esophagitis Take 1 Capsule by mouth in the morning. 90 Capsule 3 08/30/20 23 Active PARoxetine HCl 40 MG Oral Tablet (pAXil) Take 1 tablet by mouth once daily 90 Tablet 3 10/04/20 23 Active PARoxetine HCl 10 MG Oral Tablet (pAXil)Indications: Moderate episode of recurrent major depressive disorder (HCC) TAKE 1 TABLET BY MOUTH IN THE MORNING, ALONG WITH YOUR 40 MG TABLET FOR A TOTAL DOSE OF 50 MG 90 Tablet 1 02/18/20 24 Active Acetaminophen-Codei ne 300-30 MG Oral TabletIndications:S /P hernia repair Take 1 Tablet by mouth every 6 hours as needed for Pain, Moderate. 28 Tablet 0 03/02/20 24 Active Montelukast Sodium 10 MG Oral Tablet (Singulair) Take 1 tablet by mouth once daily 90 Tablet 3 03/04/20 24 Active Levocetirizine Dihydrochloride 5 MG Oral TabletIndications:N onallergic rhinitis TAKE 1 TABLET BY MOUTH ONCE DAILY IN THE EVENING 90 Tablet 3 03/04/20 24 Active Zinc 100 MG Oral Tablet Take 1 Tablet by mouth every morning. 0 024 Discontinued Elderberry 500 MG Oral Capsule Take by mouth every evening. 0 024 Discontinued Vitamin C 1000 MG Oral Tablet Take 1 Tablet by mouth in the morning. 0 024 Discontinued methylPREDNISolone 4 MG Oral Tablet Therapy Pack (Medrol Dosepack)Indication s:Chronic pain of both shoulders follow package directions 21 Tablet 0 08/30/20 23 024 Discontinued(Carlos clinton preference/disc ontinuation) predniSONE 10 MG Oral Tablet (Deltasone) Take 5 tabs for 2 days, 4 tabs for 2 days, 3 tabs for 2 days, 2 tabs for 2 days 1 tab for 2 days 30 Tablet 0 03/02/20 24 024 Discontinued(Carlos clinton preference/disc ontinuation) documented as of this encounter (statuses as of 03/31/2024) Active Problems Problem Noted Date Diagnosed Date [...] as of this encounter (statuses as of 03/31/2024) Resolved Problems Problem Noted Date Diagnosed Date [...] as of this encounter (statuses as of 03/31/2024) Immunizations Name Administration Dates Next Due COVID-19 mRNA, LNP-s, No Pre serve, 2-Dose Series ([employer]) 02/25/2021,02/04/2021 Hepatitis B, 20+ yrs 06/24/2013,03/18/2013,12/23 MMR [...] Sign Reading Time Taken Comments Blood Pressure 116/74 03/31/2024 12:40 PM EDT Pulse 88 03/31/2024 12:40 PM EDT Temperature 37 C (98.6 F) 03/31/2024 12: 40 PM EDT Respiratory Rate 18 03/31/2024 12:4 0 PM EDT Oxygen Saturation 96% 03/31/2024 12: 40 PM EDT Inhaled Oxygen Concentration - - Weight 83.9 kg (184 lb 14.4 oz) 024 12:40 PM EDT Height - - Body Mass Index 35.23 11/21/2023 11:11 AM EST documented in this [...] Progress Notes * Alexa Martinez MD - 03/31/2024 1:20 PM EDT Images from the original note were not included. History of Present Illness Ariana Tuttle is a 58 year old female that presents for NEW PATIENT ([facility]) Brief Clinical History Ms. Tuttle is a 58 year old woman last seen in Family Medicine 4 weeks ago (03-02-24). She is not duefor eval of any conditions. Patient is here for CPE. 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 Also notes uncontrolled RLS. Has tried many agents for this. Open to a trial of magnesium glycinate. Family and social history reviewed and updated All systems reviewed and pertinent positives noted above Physical Exam Vitals: 03/31/24 1240 Temp: 37 C (98.6 F) Pulse: 88 Resp: 18 SpO2: 96% BP: 116/74 BP Readings from Last 3 Encounters: 03/31/24 116/74 03/02/24 122/78 01/30/24 128/70 BP 116/74 | Pulse 88 | Temp 37 C (98.6 F) (Tympanic) | Resp 18 | Wt 83.9 kg (184 lb 14.4 oz) | SpO2 96% | BMI 35.23 kg/m | BSA 1.9 m General: alert, healthy, and no distress Head: Normocephalic, No masses, lesions, tenderness or abnormalities Eye Exam: PERRLA, extraocular movements intact, conjunctiva are pink and non- injected, sclera clear Ears: External ears normal, Canals clear, TM's Normal Nose: no mucosal erythema, no mucosal edema, no purulent discharge Oropharynx: no exudate, no erythema, lips, buccal mucosa, and tongue normal, and mucous membranes are moist Heart: regular rate & rhythm, no murmur, and no gallops Lungs: chest symmetric with normal AP diameter, no chest deformities noted, no chest wall tenderness, lungs clear to auscultation I have reviewed the following results: CMP, Lipid Panel, and CBC Assessment and Plan Restless legs syndrome (Primary) - FERRITIN; Future; Expected date: 03/31/2024 - IRON SCREEN, INCLUDING TIBC; Future; Expected date: 03/31/2024 - BASIC METABOLIC PANEL; Future; Expected date: 03/31/2024 Moderate episode of recurrent major depressive disorder (HCC) - BASIC METABOLIC PANEL; Future; Expected date: 03/31/2024 Continue on paxil, no med changes no si/hi Elevated hemoglobin (HCC) - BASIC METABOLIC PANEL; Future; Expected date: 03/31/2024 Thyroid nodule - US HEAD AND NECK; Future; Expected date: 03/31/2024 - TSH WITH FREE T4 IF INDICATED; Future; Expected date: 03/31/2024 - BASIC METABOLIC PANEL; Future; Expected date: 03/31/2024 Dyslipidemia, goal to be determined - LIPID PANEL WITH DIRECT LDL IF TG IS HIGH; Future; Expected date: 03/31/2024 Follow-up: Return in about 6 months (around 10/01/2024). | Check-out note: Labs today Time: I spent a total of 20-29 minutes (exact time 25 mins) on the date of service in preparation, delivery, and documentation of the care provided to Ariana Tuttle excluding any time spent in the performance of separately billed services. documented in this encounter Nursing Notes * Alexander Crystal LPN - 03/31/2024 12:38 PM EDT Chief Complaint Patient presents with NEW PATIENT Establish care documented in this encounter Plan of Treatment Upcoming Encounters Date Type Department Care Team (Late st Contact Info) Description 03/31/2024 2:00 PM EDT Laboratory Laboratory, [place] [address] [place] [phone] [place], [facility] [address] [place] [address] Restless legs syndrome; Thyroid nodule; Dyslipidemia, goal to be determined; Moderate episode of recurrent major depressive disorder (HCC); Elevated hemoglobin (HCC) 03/31/2024 3:00 PM EDT Appointment Radiology, [facility] [address] [facility] [place] [id number] 12/09/2024 2:00 PM EST Office Visit [facility] [address] [place] [phone] Alexa Martinez MD [address] [place] [address] Pending Results Name Type Priority Associated Diagnoses Date /Time FERRITIN Lab Routine Restless legs syndrome 03/31/2024 1:29 PM EDT IRON SCREEN, INCLUDING TIBC Lab Routine Restless legs syndrome 03/31/2024 1:29 PM EDT TSH WITH FREE T4 IF INDICATED Lab Routine Thyroid nodule 03/31/2024 1:29 PM EDT LIPID PANEL WITH DIRECT LDL IF TG IS HIGH Lab Routine Dyslipidemia, goal to be determined 03/31/2024 1:29 PM EDT BASIC METABOLIC PANEL Lab Routine Moderate episode of recurrent major depressive disorder (HCC) Restless legs syndrome Elevated hemoglobin (HCC) Thyroid nodule 03/31/2024 1:29 PM EDT Scheduled Orders Name Type Priority Associated Diagnoses Orde r Schedule FERRITIN Lab Routine Restless legs syndrome Expected: 03/31/2024 (Approximate), Expires: 03/31/2025 IRON SCREEN, INCLUDING TIBC Lab Routine Restless legs syndrome Expected: 03/31/2024 (Approximate), Expires: 03/31/2025 US HEAD AND NECK Medical Imaging Routine Thyroid nodule Expected: 03/31/2024, Expires: 05/01/2025 TSH WITH FREE T4 IF INDICATED Lab Routine Thyroid nodule Expected: 03/31/2024 (Approximate), Expires: 03/31/2025 LIPID PANEL WITH DIRECT LDL IF TG IS HIGH Lab Routine Dyslipidemia, goal to be determined Expected: 03/31/2024, Expires: 03/31/2025 BASIC METABOLIC PANEL Lab Routine Moderate episode of recurrent major depressive disorder (HCC) Restless legs syndrome Elevated hemoglobin (HCC) Thyroid nodule Expected: 03/31/2024 (Approximate), Expires: 03/31/2025 Scheduled Procedures Name Priority Associated Diagnoses Date/Ti [...] 03/09/2033 03/09/2023, 10/02/2011 Hepatitis B Completed 06/24/2013, 11/2012, 12/23/2012 Zoster Vaccines Completed 06/15/2023, 03/09/2023 Influenza Vaccine (FLU shot) Completed , 08/31/2022, 11/14/2021, Additional history exists GARDASIL-HPV IMMUNIZATION SERIES Aged Out No longer eligible based on patient's age to complete this topic MENINGOCOCCAL (MENACTRA/MENVEO) Aged Out No longer eligible based on patient's age to complete this topic documented as of this encounter Medical Devices Implanted Type Area Pelt Salter Device Identifier Shelf Expiration Date Model / Serial / Lot Mesh 10 X 14 [id number] - [id number] Implanted:Qty: 1 on 12/06/2017 [place] José Miguel Ru[place] [facility] [place]: Abdomen GETINGE : MAQUET 04/11/2022 [id number] / / [id number] documented as of this encounter Visit Diagnoses Diagnosis Restless legs syndrome- Primary Restless legs syndrome (RLS) Moderate episode of recurrent major depressive disorder (HCC) Elevated hemoglobin (HCC) Other hemoglobinopathies Thyroid nodule Nontoxic uninodular goiter Dyslipidemia, goal to be determined Other and unspecified hyperlipidemia Restless legs syndrome Restless legs syndrome (RLS) Thyroid nodule Nontoxic uninodular goiter Dyslipidemia, goal to be determined Other and unspecified hyperlipidemia Moderate episode of recurrent major depressive disorder (HCC) Elevated hemoglobin (HCC) Other hemoglobinopathies documented in this encounter Advance Directives Latest [...] the patient have Health Care Power of Paper Machine Tender? No Care Teams Youth Officer Relationship Specialty Start Date End Date Alexa Martinez MD [address] [place] [phone] PCP - General Family Medicine 03/31/24 documented as of this encounter"
--- OUTSIDE RECORDS SUMMARY | 2024-08-21 08:43 | External Medical Summary ---
Author Name Unknown Address Unknown Organization K01:LABORATORY [facility] [place] - [address] [address] Laboratory Report Ordering Provider Test Date Status TREVOR VERDIN 03/31/2024 13:29:14 Final Observation Date Value Abnormality Reference (Units ) Status Triglyceride 03/31/2024 13:29:14 239 Above high normal <=174 (mg/dL) Final Triglyceride Reference Range s (mg/dL):
<150 Acceptable
150-174 Borderline high
175-499 High
>=500 Very high Cholesterol 03/31/2024 13:29:14 177 <200 (mg /dL) Final Total Cholesterol Reference Ranges (mg/dL):
<200 Desirable
200-239 Borderline high
>=240 High HDL 03/31/2024 13:29:14 42 Below low normal >49 (mg/dL) Final HDL Cholesterol Reference Ra nges (mg/dL):
>=60 High (Desirable)
<50 Low (Undesirable) For Females
<40 Low (Undesirable) For Males NON-HDL CHOLESTEROL 03/31/2024 13:29:14 135 <=159 (mg/dL) Final Non-HDL Cholesterol Referenc e Range (mg/dL):
<100 Target level for high risk ASCVD patient
<130 Optimal for general population
130-159 Near optimal for general population
160-189 Borderline High
190-219 High
>=220 Very High Performing Location LABORATORY [facility] [place] - [address] [place] [address]
--- OUTSIDE RECORDS SUMMARY | 2024-08-21 08:43 | External Medical Summary | Summary of Care ---
Author Name Unknown Organization [facility] Address [address] [facility] [place] [address] Phone [phone] Care Team Providers Care Carpenter Packing Name Role Phone Alexa Martinez MD Primary Care Provider + [phone] Reason for Visit * Reason Comments Outpatient Testing Encounter Details Date Type Department Care Team (Late st Contact Info) Description 03/31/2024 2:00 PM EDT Laboratory Laboratory, [place] [address] [place] [id number] [place], Lab [address] [place] [address] Restless legs syndrome; Thyroid nodule; Dyslipidemia, goal to be determined; Moderate episode of recurrent major depressive disorder (HCC); Elevated hemoglobin (HCC) Allergies Active Allergy Reactions Criticality Noted [...] Dispensed Refills Start Date End Date Status MULTI-VITAMIN/TESTING AND REGULATING CHIEF ALS PO TABS 1 tablet by mouth [...] HCl 0.1 % Nasal Solution Administer 1 [place] into nostril 2 times a day. 30 [...] Pain, Moderate. 28 Tablet 0 4 Active Montelukast Sodium 10 MG Oral Tablet (Singulair) Take 1 tablet by mouth once daily 90 Tablet 3 4 Active Levocetirizine Dihydrochloride 5 MG Oral TabletIndications:N onallergic rhinitis TAKE 1 TABLET BY MOUTH ONCE DAILY IN THE EVENING 90 Tablet 3 4 Active Zinc 100 MG Oral Tablet Take 1 Tablet by mouth every morning. 0 03/31/20 24 Discontinued Elderberry 500 MG Oral Capsule Take by mouth every evening. 0 03/31/20 24 Discontinued Vitamin C 1000 MG Oral Tablet Take 1 Tablet by mouth in the morning. 0 03/31/20 24 Discontinued documented as of this encounter [...] mRNA, LNP-s, No Pre serve, 2-Dose Series (Noquo) 02/25/2021,02/04/2021 Hepatitis B, 20+ yrs 06/24/2013,03/18/2013,12/23 MMR [...] Team (Late st Contact Info) Description 03/31/2024 3:00 PM EDT Appointment Radiology, [address] [place] [address] 12/09/2024 2:00 PM EST Office Visit [facility] [address] [place] [address] Alexa Martinez MD [address] [place] [address] Pending Results Name Type Priority Associated Diagnoses [...] Thyroid nodule 03/31/2024 1:29 PM EDT Scheduled Procedures Name Priority Associated Diagnoses Date/Ti me LAMINOPLASTY POSTERIOR CERVICAL Cervical spinal stenosis LAMINOPLASTY POSTERIOR CERVI CHRIS RECONSTRUCTION POST ELEMENTS Cervical spinal stenosis LAMINECTOMY FACETECTOMY AND FORAMINOTOMY POSTERIOR CERVICAL Cervical spinal stenosis LAMINECTOMY FACETECTOMY AND FORAMINOTOMY ADDITIONAL LEVELS Cervical spinal stenosis Health Maintenance Due Date Last Done Comments Cologuard 2008 Fecal Occult Blood Test 2008 Sigmoidoscopy 2008 COVID-19 Vaccine (24 season) 2023 02/25/2021, 02/04/2021 Mammogram 09/02/2024 09/02/2023, [...] this encounter Medical Devices Implanted Type Area Audio Visual Production Specialist Device Identifier Shelf Expiration Date Model / Serial / Lot Mesh 10 X 14 [id number] - [id number] Implanted:Qty: 1 on 12/06/2017 by José Miguel Ru[place] [facility] [place] Abdomen GETINGE : MAQUET 04/11/2022 [id number] / / [id number] documented as of this encounter Visit Diagnoses Diagnosis Restless legs syndrome Restless legs syndrome (RLS) [...] the patient have Health Care Power of Cigarette Filter Inspector? No Care Teams Carpenter Packing Relationship Specialty Start Date End Date Alexa Martinez MD [address] [place] [address] PCP - General Family Medicine 03/31/24 documented as of this encounter
--- OUTSIDE RECORDS SUMMARY | 2024-08-21 08:43 | External Medical Summary ---
Author Name Unknown Address Unknown Organization K01:[facility] [place] - [address] [facility] [place] [address] Laboratory Report Ordering Provider Test Date Status TREVOR VERDIN 03/31/2024 13:29:14 Final Observation Date Value Abnormality Reference (Units ) Status TSH 03/31/2024 13:29:14 1.47 0.27-4.20 (uIU/mL) Final Performing Location [facility] [place] [facility] [address] [facility] [address]
--- NOTE | 2024-08-21 09:49 | XRay Report ---
XR lumbar spine min 4V routine HISTORY: 59 years-old Female pre op eval of fusion chronic low back pain COMPARISON: MR lumbar spine 11/14/2011 TECHNIQUE: 5 views of the lumbar spine FINDINGS: Atherosclerosis. Laminectomy with posterior interbody rods and screw fusion hardware at L2-L5 with L3 -L4 discectomy. The hardware appears intact. Demineralized appearance of the bones without acute frac ture, subluxation or endplate erosion. Ybgy-ec-pdeykrzx multilevel intervertebral disc space narrowin g and spondylotic spurring. Surgical clips project over the abdomen and pelvis. IMPRESSION: 1. No acute fracture or subluxation. 2. Unremarkable appearance of the spinal fusion hardware. ACT 112: Negative or not required by law. The above report was generated using voice recognition software. It may contain grammatical, syntax o r spelling errors. Electronically signed by: Mike Bradley M.D. 08/21/2024 9:48 AM
[2024-08-21] MEDS ORDERED: DEXAMETHASONE SOD INJ 4 MG/ML VIAL ONE (10:48)
[2024-08-21] MEDS ORDERED: ONDANSETRON INJ 2 MG/ML 2 ML VIAL ONE (10:48)
[2024-08-21] MEDS ORDERED: fentaNYL citrate PF 100 MCG/2 ML VIAL ONE ×2 (10:48→13:47)
[2024-08-21] MEDS ORDERED: PROPOFOL IV EMULSION 10 MG/ML 20 ML VIAL IV ONE ×3 (10:48→12:54)
[2024-08-21] MEDS ORDERED: LIDOCAINE 2% 2 ML VIAL/AMP(20MG/ML) INFIL ONE (10:48)
[2024-08-21] MEDS ORDERED: MIDAZOLAM HCL 1 MG/ML 2ML VIAL ONE (10:48)
[2024-08-21] MEDS: LACTATED RINGER'S 1,000 ML IV SCH ×2 (11:03→17:14)
--- NOTE | 2024-08-21 11:08 | History & Physical Bridge Note ---
Date of Service August 21, 2024 History & Physical Bridge Note I have examined the patient, reviewed the History & Physical and in the interval since the performance of the History & Physical I have noted the following changes of clinical significance: no changes noted Patient has severe lumbar spinal stenosis with compression of the cauda equina. She has complaints of saddle anesthesia and bouts of urinary incontinence. She exhibits severe back and bilateral leg pain. In light of her presentation and MRI findings and recommending emergent decompression and fusion T11-L2.
--- OUTSIDE RECORDS SUMMARY | 2024-08-21 11:43 | External Medical Summary | Summary of Care ---
Author Name Unknown Organization [facility] Address [address] [place] [address] Phone [phone] Care Team Providers Care Business And Marketing Teacher Name Role Phone Alexa Martinez MD Primary Care Provider + [phone] Reason for Referral * Precert (Within 10 days (routine)) - Authorized Specialty Diagnoses / Procedures Referred By Contac t Referred To Contact Radiology Diagnoses Osteoarthritis of spine with radiculopathy, lumbar region Weakness of lower extremity, unspecified laterality Procedures MRI L SPINE WO CONTRAST Alexa Martinez MD [address] [place] [address] Referral ID Status Reason Start Date Expiration Date V isits Requested Visits Authorized [id number] Authorized Precert 08/19/2024 10/16/[phone] Reason for Visit * Precert (Within 10 days (routine)) - Authorized Specialty Diagnoses / Procedures Referred By Contac t Referred To Contact Radiology Diagnoses Osteoarthritis of spine with radiculopathy, lumbar region Weakness of lower extremity, unspecified laterality Procedures MRI L SPINE WO CONTRAST Alexa Martinez MD [address] [place] [address] Referral ID Status Reason Start Date Expiration Date V isits Requested Visits Authorized [id number] Authorized Precert 08/19/2024 10/16/[phone] Encounter Details Date Type Department Care Team (Latest Contact Info) Description 08/19/2024 4:01 PM EDT - 08/19/2024 11:59 PM EDT Hospital Encounter Radiology, [facility] [address] [facility] [place] [address] Arrived Discharge Disposition: Home - Self [...] as of this encounter (statuses as of 08/20/2024) Medications Medication Sig Dispensed Refills Start Date [...] for Wheezing. 18 g 5 08/30/2023 Active PARoxetine HCl 40 MG Oral [...] Pain, Moderate. 28 Tablet 08/04/2024 Active Nystatin 481368 UNIT/GM External Powder (Nystop)Indications:In tertrigo Apply 1 g topically to affected area in the morning and 1 g at noon and 1 g before bedtime. Apply to skin folds. 30 g 1 08/04/2024 Active LORazepam 0.5 MG Oral Tablet (Ativan) 1-2 tab half hour before procedure 4 Tablet 08/10/2024 Active Simvastatin 20 MG Oral Tablet (Zocor)Indications:Dys lipidemia, goal to be determined TAKE 1 TABLET BY MOUTH ONCE DAILY IN THE EVENING 90 Tablet 2 08/16/2024 Active Omeprazole 40 MG Oral Capsule Delayed Release (PriLOSEC)Indications: Gastroesophageal reflux disease without esophagitis Take 1 capsule by mouth in the morning 90 Capsule 2 08/16/2024 Active documented as of this encounter (statuses as of 08/20/2024) Active Problems Problem Noted Date Diagnosed Date [...] as of this encounter (statuses as of 08/20/2024) Resolved Problems Problem Noted Date Diagnosed Date [...] as of this encounter (statuses as of 08/20/2024) Immunizations Name Administration Dates Next Due COVID-19 mRNA, LNP-s, No Pre serve, 2-Dose Series (ActiveReplay) 02/25/2021,02/04/2021 Hepatitis B, 20+ yrs 06/24/2013,03/18/2013,12/23 MMR - Measles/Mumps/Rubella Vaccine 12/23/2012 PPD 12/16/2012 Pneumococcal Conjugate Vacc, 13 Valent (Prevnar) 10/15/2017 Pneumococcal Polysaccharide PPV23 (Pneumovax) 10/02/2011 Seasonal Influenza Vac., MDV , IM, 0.5 mL (Fluzone) 08/04/2013,08/26/2012,09/04/2011,10/17 Seasonal Influenza, PF, 6 M & above, IM , (FluLaval or Fluzone) 08/30/2023,08/31/2022,11/14/2021,09/02,07/31/2019,10/15/2017 Seasonal Influenza, Quadriva lent, No Preserve, IM 09/05/2016 Seasonal Influenza, Trivalen t, (IIV3), PF, (Fluzone) 07/28/2024 TDAP (age 10 and older)(Boostrix) 03/09/2023 TDAP, [...] Care Team (Late st Contact Info) Description 09/03/2024 1:25 PM EDT NeuroDiagnostic Study Neurophysiology, [place] [address] [place] [address] [address] [place], [address] [place] [address] 12/09/2024 2:00 PM EST Office Visit [facility] [address] [place] [address] Alexa Martinez MD [address] [place] [phone] Scheduled Procedures Name Priority Associated Diagnoses Date/Ti [...] this encounter Medical Devices Implanted Type Area Biological Technician Device Identifier Shelf Expiration Date Model / Serial / Lot Mesh 10 X 14 [id number] - [id number] Implanted:Qty: 1 on 12/06/2017 by José Miguel Ruiz MD at [place] [facility] [place] N/A: Abdomen GETINGE : MAQUET 04/11/2022 [id number] / / [id number] documented as of this encounter Procedures Procedure Name Priority Date/Time Associated Diagnosis Comments MRI L SPINE WO CONTRAST Routine 08/19/2024 5:03 PM EDT Osteoarthritis of spine with radiculopathy, lumbar region Weakness of lower extremity, unspecified laterality documented in this encounter Results * MRI L SPINE WO CONTRAST (08/19/2024 5:03 PM EDT) Anatomical Region Laterality Modality Vertebra, Lspine Magnetic Resona nce 08/20/2024 8:52 AM EDT Impressions 08/20/2024 8:50 AM EDT IMPRESSION 1. Stable postsurgical changes of L2 through L5 instrumented posterior spinal fusion, L2-L3 through L4-L5 laminectomies and L3-L4 interbody fusion. 2. Multilevel degenerative changes in the lumbar spine as described above, more pronounced at L1-L2 level with resultant moderate to severe spinal canal stenosis and compression of the nerve roots of the cauda equina. Interval progression as compared with prior MRI dated 02/13/2022. The report is submitted to radiology office services manager at 8:49 a.m. on 08/20/2024 for communication with referring provider as per Act 112. Narrative 08/20/2024 8:50 AM EDT EXAM MRI L SPINE WO CONTRAST - 08/19/2024 5:03 pm HISTORY worsening weakness of lower extremities and worsening back pain from baseline since april, worsening incontinence TECHNIQUE Procedure: Sagittal and axial T1 and T2 weighted magnetic resonance imaging obtained through the lumbosacral spine pre-contrast. Coronal T2 series also provided. FINDINGS There is mild retrolisthesis of L1 on L2 and L2 on L3. Stable postsurgical changes of L2 through L5 instrumented posterior spinal fusion, L2-L3 through L4-L5 laminectomies and L3-L4 interbody fusion are redemonstrated. The susceptibility artifacts from the spinal instrumentation limit the evaluation of the adjacent structures. Multilevel endplate degenerative changes are seen in the thoracolumbar spine, more pronounced at T10-T11 and L1-L2 levels.. Vertebral bodies otherwise demonstrate normal signal intensity on all sequences. There are no compression fractures. The conus medullaris terminates at the level of L1-L2. The distal spinal cord signal intensity is normal. Multilevel disc desiccation is seen in the lumbar spine.. Limited views of the abdomen and pelvis show no soft tissue abnormality. The aorta is normal. L1-L2: Moderate disc bulge. There is moderate bilateral facet arthropathy. There is chxn-ay-nqcvsklg bilateral neuroforaminal stenosis. There is ligamentum flavum infolding and epidural lipomatosis. There is moderate to severe spinal canal stenosis with compression of the nerve roots of the cauda equina. L2-L3: Zemz-pm-eirsrqfi disc bulge. There is ivoo-st-nccvcmvu bilateral neuroforaminal stenosis. There is no spinal canal stenosis. L3-L4: Mild disc bulge. There is mild bilateral neuroforaminal stenosis. There is no spinal canal stenosis. L4-L5: Mild disc bulge. There is mild bilateral neuroforaminal stenosis. There is no spinal canal stenosis. L5-S1: Mild disc bulge. There is moderate bilateral facet arthropathy. A synovial cyst is noted along the anteromedial aspect of the left L5-S1 facet joint projecting into the spinal canal. There is mild bilateral neuroforaminal stenosis. There is no spinal canal stenosis. Procedure Note Luis Fernando Riggs MD - 08/20/2024 EXAM MRI L SPINE WO CONTRAST - 08/19/2024 5:03 pm HISTORY worsening weakness of lower extremities and worsening back pain frombaseline since april, worsening incontinence TECHNIQUE Procedure: Sagittal and axial T1 and T2 weighted magnetic resonanceimaging obtained through the lumbosacral spine pre-contrast. Coronal [id number] also provided. FINDINGS There is mild retrolisthesis of L1 on L2 and L2 on L3. Stablepostsurgical changes of L2 through L5 instrumented posterior spinalfusion, L2-L3 through L4-L5 laminectomies and L3-L4 interbody fusion areredemonstrated. The susceptibility artifacts from the spinalinstrumentation limit the evaluation of the adjacent structures.Multilevel endplate degenerative changes are seen in the thoracolumbarspine, more pronounced at T10-T11 and L1-L2 levels.. Vertebral bodiesotherwise demonstrate normal signal intensity on all sequences. There areno compression fractures. The conus medullaris terminates at the level ofL1-L2. The distal spinal cord signal intensity is normal. Multilevel discdesiccation is seen in the lumbar spine.. Limited views of the abdomenand pelvis show no soft tissue abnormality. The aorta is normal. L1-L2: Moderate disc bulge. There is moderate bilateral facetarthropathy. There is dyte-tu-pvvfncmk bilateral neuroforaminal stenosis.There is ligamentum flavum infolding and epidural lipomatosis. There ismoderate to severe spinal canal stenosis with compression of the nerveroots of the cauda equina. L2-L3: Atit-lh-pmmxnozt disc bulge. There is qajn-vv-anqyswcd bilateralneuroforaminal stenosis. There is no spinal canal stenosis. L3-L4: Mild disc bulge. There is mild bilateral neuroforaminal stenosis.There is no spinal canal stenosis. L4-L5: Mild disc bulge. There is mild bilateral neuroforaminal stenosis.There is no spinal canal stenosis. L5-S1: Mild disc bulge. There is moderate bilateral facet arthropathy. Asynovial cyst is noted along the anteromedial aspect of the left L5-U2feoma joint projecting into the spinal canal. There is mild bilateralneuroforaminal stenosis. There is no spinal canal stenosis. IMPRESSION IMPRESSION 1. Stable postsurgical changes of L2 through L5 instrumented posteriorspinal fusion, L2-L3 through L4-L5 laminectomies and L3-L4 interbodyfusion. 2. Multilevel degenerative changes in the lumbar spine as described above,more pronounced at L1-L2 level with resultant moderate to severe spinalcanal stenosis and compression of the nerve roots of the cauda equina.Interval progression as compared with prior MRI dated 02/13/2022. The report is submitted to radiology office services manager at 8:49 a.m. on08/20/2024 for communication with referring provider as per Act 112. Alexa Martinez MD RAD MRI-MRA documented in this encounter Visit Diagnoses Diagnosis Osteoarthritis of spine with radiculopathy, lumbar region Weakness of lower extremity, unspecified laterality documented in this encounter Advance Directives * [...] Power of Attor ayse? No Care Teams Business And Marketing Teacher Relationship Specialty Start Date End Date Alexa Martinez MD [address] [place] [address] PCP - General Family Medicine 03/31/24 documented as of this encounter
[2024-08-21] MEDS: SCOPOLAMINE 1 MG/72 HR TDSY PATCH TD ONE (11:50)
[2024-08-21] MEDS: CLINDAMYCIN/D5W 900 MG/50 ML BAG IV SCH (11:54)
[2024-08-21] MEDS: ceFAZolin 330 MG/ML 1 GM VIAL ONE ×2 (12:39)
[2024-08-21] MEDS: BUPIVACAINE/EPINEPHRINE 0.25% 1:200,000 30 ML VIAL ONE ×2 (12:40)
[2024-08-21] MEDS: CLINDAMYCIN 900 MG/D5W 50 ML BAG IV ONE (12:40)
[2024-08-21] MEDS ORDERED: PHENYLEPHRINE 100MCG/ML 10ML SYR IV ONE (12:53)
[2024-08-21] MEDS ORDERED: SUGAMMADEX SODIUM 200 MG/2 ML VIAL IV ONE (12:53)
[2024-08-21] MEDS ORDERED: ROCURONIUM BROMIDE 10 MG/ML 5 ML VIAL IV ONE (12:53)
[2024-08-21] MEDS ORDERED: diphenhydrAMINE 50 MG/ML VIAL ONE (12:54)
[2024-08-21] MEDS ORDERED: ATROPINE SULFATE 0.1 MG/ML 10ML SYR IV PRN (13:09)
[2024-08-21] MEDS ORDERED: HYDROmorphone INJ 2 MG/ML SYR/VIAL IV PRN (13:09)
[2024-08-21] MEDS ORDERED: ePHEDrine sulfate 50 MG/ML AMP IV PRN (13:09)
--- NOTE | 2024-08-21 13:14 | Anesthesiology Consultation ---
Date of Service August 21, 2024 Assessment & Plan Chart Review Chart Review: Acceptable Risk for Surgery and Patient NOT seen in Pre Admission Testing Consults Requested none ASA ASA4 Proposed Anesthesia Anesthesia Type: General Risk / Benefits Reviewed With: PT / POA / Parent / Guardian, Accepts Plan and Informed Consent Obtained History Surgery Operation Date: 08/21/24 12:00 Proposed Procedures p T11-L2 Decompression Fusion - Glynn Sharma, Height/Weight Height: 5 ft 1 in Weight: 81.845 kg Allergies Allergy/AdvReac Type Severity Reaction Status Date / Time hydrocodone Allergy Intermediate ITCHY Verified 08/21/24 10:55 hydromorphone Allergy Intermediate ITCHING Verified 08/21/24 10:55 Penicillins Allergy Intermediate RED DOTS Verified 08/21/24 10:55 AND ITCHY Sulfa (Sulfonamide Allergy Intermediate RED DOTS Verified 08/21/24 10:55 Antibiotics) AND ITCHY ciprofloxacin [Cipro] Allergy Unknown PRURITIS Verified 08/21/24 10:55 PER PCP RECORDS metronidazole Allergy Unknown HIVES PER Verified 08/21/24 10:55 PCP RECORDS morphine Allergy Unknown hives Verified 08/21/24 10:55 moxifloxacin Allergy Unknown HIVES PER Verified 08/21/24 10:55 PCP RECORDS tramadol Allergy Unknown RASH PER Verified 08/21/24 10:55 PCP RECORDS Iodinated Contrast Media Allergy Anaphylaxis Verified 08/21/24 10:55 epinephrine AdvReac Unknown MAKES Verified 08/21/24 10:55 HEART RACE vicodine Allergy Intermediate Hives Uncoded 08/20/24 20:25 fentanyl Allergy Unknown Uncoded 08/20/24 20:25 Medications Home Medications Medication Instructions Recorded Confirmed Last Taken acetaminophen 300 mg-codeine 30 mg 1 tab PO Q6H PRN Moderate Pain 08/20/24 08/20/24 Unknown tablet (Scale Score 5-6) albuterol sulfate 90 mcg/actuation 1 inh inhalation Q4H PRN 08/20/24 08/20/24 Unknown aerosol inhaler sob/wheezing cholecalciferol (vitamin D3) 25 50 mcg PO HS 08/20/24 08/20/24 Unknown mcg (1,000 unit) tablet cyanocobalamin (vitamin B-12) 500 1,000 mcg PO HS 08/20/24 08/20/24 Unknown mcg tablet levocetirizine 5 mg tablet 5 mg PO HS 08/20/24 08/20/24 Unknown montelukast 10 mg tablet 10 mg PO HS 08/20/24 08/20/24 Unknown multivitamin 1 tab PO HS 08/20/24 08/20/24 Unknown omeprazole 40 mg capsule,delayed 40 mg PO HS 08/20/24 08/20/24 Unknown release paroxetine HCl 10 mg tablet 10 mg PO HS 08/20/24 08/20/24 Unknown paroxetine HCl 40 mg tablet 40 mg PO HS 08/20/24 08/20/24 Unknown simvastatin 20 mg tablet 20 mg PO HS 08/20/24 08/20/24 Unknown Active Medications Generic Name Dose Route Start Last Admin Trade Name Freq PRN Reason Stop Dose Admin Cetirizine HCl 10 mg 08/20/24 22:30 08/20/24 23:17 Cetirizine Hcl 10 Mg Tablet PO 09/19/24 22:29 10 mg HS YAMILET Administration Cyanocobalamin 1,000 mcg 08/20/24 22:30 08/20/24 23:15 Cyanocobalamin (B-12) 500 Mcg Tablet PO 09/19/24 22:29 1,000 mcg HS AYMILET Administration Sodium Chloride 1,000 mls @ 60 mls/hr 08/20/24 20:49 08/21/24 10:50 Nss IV 08/21/24 13:28 0 mls/hr .[id number] ONE Infusion Lactated Ringer's 1,000 mls @ 15 mls/hr 08/21/24 11:15 08/21/24 11:51 Lr IV 09/20/24 11:14 Infused .Q24H YAMILET Infusion Clindamycin Phosphate 900 mg in 50 mls @ 100 mls/hr 08/21/24 06:00 08/21/24 11:54 Cleocin/D5w IV 08/22/24 05:59 100 mls/hr PREOP YAMILET Administration Lidocaine 1 patch 08/20/24 21:00 08/20/24 21:00 Lidocaine 5% 1 Patch TD 09/19/24 20:59 1 patch HS YAMILET Administration Lorazepam 0.5 mg 08/20/24 21:12 08/21/24 00:24 Lorazepam 0.5 Mg Tab PO 09/19/24 21:11 0.5 mg TID PRN Administration Anxiety Miscellaneous 1 each 08/21/24 09:00 08/21/24 08:16 Remove Lidoderm Patch N/A 09/20/24 08:59 1 each DAILY@0900 YAMILET Administration Montelukast Sodium 10 mg 08/20/24 22:30 08/20/24 23:16 Montelukast Sodium 10 Mg Tablet PO 09/19/24 22:29 10 mg HS YAMILET Administration Multivitamins 1 tab 08/20/24 22:30 08/20/24 23:17 Multivitamin Tab PO 09/19/24 22:29 1 tab HS YAMILET Administration Oxycodone HCl 5 - 10 mg 08/20/24 20:20 08/21/24 08:15 Oxycodone Hcl Ir 5 Mg Tab (Immediate Release) PO 09/03/24 20:19 10 mg QID PRN Administration Pain Pantoprazole Sodium 40 mg 08/20/24 22:30 08/21/24 00:24 Pantoprazole 40 Mg Tab PO 09/19/24 22:29 40 mg HS YAMILET Administration Paroxetine HCl 50 mg 08/20/24 22:30 08/20/24 23:17 Paroxetine Hcl 10 Mg Tab PO 09/19/24 22:29 50 mg HS YAMILET Administration Simvastatin 20 mg 08/20/24 22:30 08/20/24 23:17 Simvastatin 20 Mg Tab PO 09/19/24 22:29 20 mg HS YAMILET Administration NPO Date Last Intake of Fluids: 08/20/24 Time Last Intake of Fluids: 23:59 Date Last Intake of Solids: 08/20/24 Time Last Intake of Solids: 21:30 Past Medical History Medical History Lumbar spinal stenosis Depression with anxiety Tobacco use IBS (irritable bowel syndrome) GERD (gastroesophageal reflux disease) HLD (hyperlipidemia) Exercise / Class Metabolic Activity III < 4 Walking/Shop/Light housework Past Family History Family History Mother Asthma Coronary heart disease Dyslipidemia Father Cancer Past Surgical History Surgical History Hx of neck surgery History of dental surgery wisdom tooth extraction Hx of tubal ligation Hx of cholecystectomy Hx of total hysterectomy Hx of sinus surgery History of carpal tunnel surgery Hx of lumbar discectomy History of resection of small bowel History of incisional hernia repair Hx of esophagogastroduodenoscopy Hx of colonoscopy Past Anesthesia History No Hx of Anesthesia Complications and No Family Hx of Anesthesia Complications History of PONV History of PONV Social History Smoking Status: Current every day smoker Smoking cigarettes per day: 7 Do You Dip or Chew Tobacco: No Hx Alcohol Use: No Hx Substance Use: No substance use type: does not use Physical Exam Vital Signs Last Vital Signs Temp 36.8 C 08/21/24 10:56 Pulse 80 08/21/24 10:56 Resp 20 08/21/24 10:56 BP 105/68 08/21/24 10:56 Pulse Ox 93 08/21/24 10:56 O2 Del Method Room Air 08/21/24 10:56 Constitutional + obese; no acute distress ENMT Mouth: + small oral opening Thyromental Distance: < 3.5 Finger Breadths Mallampati Class: III Neck trachea midline and + short neck Respiratory normal respiratory effort Auscultation: lungs clear to auscultation bilaterally Cardiovascular Rate/Rhythm: regular rate and regular rhythm Musculoskeletal Spine: + limited cervical ROM Neurologic Motor/Sensory: + sensory deficit Psychiatric Orientation: alert and oriented x 3 Testing Laboratory Results 08/20/24 18:33 08/20/24 18:33 Urine Color Yellow 08/20/24 18:33 Urine Appearance Clear (Clear) 08/20/24 18:33 Urine pH 7.0 (4.5-7.5) 08/20/24 18:33 Ur Specific Foster 1.006 (1.000-1.030) 08/20/24 18:33 Urine Protein Negative (Negative) 08/20/24 18:33 Urine Glucose (UA) Negative (Negative) 08/20/24 18:33 Urine Ketones Negative (Negative) 08/20/24 18:33 Urine Nitrite Negative (Negative) 08/20/24 18:33 Ur Leukocyte Esterase Negative (Negative) 08/20/24 18:33
--- NOTE | 2024-08-21 13:27 | Hospitalist Progress Note ---
Date of Service August 21, 2024 Assessment & Plan (1) Spinal stenosis, lumbar region with neurogenic claudication: (2) Cauda equina compression: (3) Tobacco use: (4) HLD (hyperlipidemia): (5) GERD (gastroesophageal reflux disease): (6) IBS (irritable bowel syndrome): (7) Depression with anxiety: Plan This is a 59-year-old female who has significant past medical history of Hyperlipidemia, thyroid nodule, GERD, IBS, obesity, DDD, history of cervical and lumbar surgery, RLS, tobacco use disorder, depression with anxiety who presents to ED secondary to abnormal MRI. Outpt MRI done at [facility]: * 1. Stable postsurgical changes of L2 through L5 instrumented posterior spinal fusion, L2-L3 through L4-L5 laminectomies and L3-L4 interbody fusion. * 2. Multilevel degenerative changes in the lumbar spine as described above, more pronounced at L1-L2 level with resultant moderate to severe spinal canal stenosis and compression of the nerve roots of the cauda equina. Interval progression as compared with prior MRI dated 02/13/2022. Progressive lumbar radiculopathy history lumbar surgery 2017 Ortho spine consult -s/p emergent decompression and fusion T11-L2 on 08/21 Pain Control prn PT/OT as appropriate DVT prophylaxis per ortho Incentive spirometry Monitor H&H for acute blood loss anemia; Pre-op Hgb: 16.1 COPD pulmonary status at baseline chronic polycythemia possibly from [facility] Outpt followup Diet: Full liquids DVT prophylaxis. SCDs, per ortho Dispo: per PT/OT recs Admission and Anticipated Discharge Date Admission Date: August 21, 2024 Subjective Patient was seen in the PACU after surgery as well as back in her room afterwards. Nasal cannula in nares, states that pain is controlled at this time. Denied shortness of breath, chest pain, abdominal pain Review of Systems Review of Systems: All systems reviewed & are unremarkable except as noted in Subjective Physical Exam Physical Exam: General: Alert, oriented. No acute distress Psych: Appropriate mood and affect Neuro:difficulty with movements in the bed HEENT: NC/AT CV: RRR Resp: no increased effort of breathing Abdomen: Soft, tender on left Extremities: SCDs on lower extremities bilaterally. Results & Data Results & Data Vital Signs (Past 12 Hours) Vital Signs Temp Pulse Pulse Resp BP BP Pulse Ox 08/21/24 10:56 36.8 C 80 20 105/68 93 08/21/24 07:54 37.0 C 78 17 111/71 92 O2 Del Method 08/21/24 10:56 Room Air 08/21/24 07:54 Room Air Diagnostic Findings Lumbar Spine X-Ray 08/21/24 00:00 FL lumbar spine 2-3V CLINICAL HISTORY: L1-L2 FUSIONstatus post lumbar spine fusion COMPARISON STUDY: Lumbar spine radiographs of same day FLUOROSCOPY TIME: 24.8 seconds FLUOROSCOPY IMAGES: 2 EXPOSURE DOSE: 17.47 mGy FINDINGS: Extensive posterior and right-sided salinas and screw fusion hardware, exact numbering is not definitive based on magnification. The imaged hardware appears intact. A surgical drainage catheter is noted. IMPRESSION: Fluoroscopic assistance as above. ACT 112: Negative or not required by law. Electronically signed by: Mike Bradley M.D. 08/21/2024 2:38 PM Lumbar Spine X-Ray 08/21/24 08:18 XR lumbar spine min 4V routine HISTORY: 59 years-old Female pre op eval of fusion chronic low back pain COMPARISON: MR lumbar spine 11/14/2011 TECHNIQUE: 5 views of the lumbar spine FINDINGS: Atherosclerosis. Laminectomy with posterior interbody rods and screw fusion hardware at L2-L5 with L3-L4 discectomy. The hardware appears intact. Demineralized appearance of the bones without acute fracture, subluxation or endplate erosion. [id number] multilevel intervertebral disc space narrowing and spondylotic spurring. Surgical clips project over the abdomen and pelvis. IMPRESSION: 1. No acute fracture or subluxation. 2. Unremarkable appearance of the spinal fusion hardware. ACT 112: Negative or not required by law. The above report was generated using voice recognition software. It may contain grammatical, syntax or spelling errors. Electronically signed by: Mike Bradley M.D. 08/21/2024 9:48 AM
[2024-08-21] MEDS: FLOSEAL HEMOSTATIC MATRIX 10ML TOP ONE (13:30)
[2024-08-21] MEDS ORDERED: KETOROLAC 30 MG/ML VIAL ONE (13:42)
--- NOTE | 2024-08-21 13:53 | Operative Report ---
Post Operative Report Pre & Post Diagnosis Operation Date: 08/21/24 12:00 Pre-Op Diagnosis: Spinal stenosis, lumbar region with neurogenic claudication Cauda equina syndrome Post-Op Diagnosis: Same I identified the patient and participated in the time-out.: Yes Procedure Operation Date: 08/21/24 12:00 Actual Procedures #1 decompression of bilateral medial facetectomies and foraminotomies T12-L1 L1- L2. #2 posterior spinal fusion T11-L2. #3 please do posterior instrumentation T12-L1 with connectors at L2-L3. #4 interbody fusion L1-L2. #5 placement Spira 9 x 26 mm at L1-L2. #6 placement locally harvested morselized autograft in the posterior lateral gutters. #7 placement infuse collagen sponge combined with Koros in the posterior gutters extending from T11-L4 to. Os design placed interbody space. #8 placement of versa wrap over the exposed dura. Surgeon Glynn Sharma, DO Universal Grinder Set Up Operator Matthew Courtney Estimated Blood Loss 100 Findings See Below The patient is 5 foot 1 weighing over 81 kg with a BMI in excess of 34. The patient's body habitus did contribute to significant technical difficulty with the positioning exposure and the procedure itself at least 50% increased operative time. Specimens None Indications This is a 59-year-old female presents with marked decline in status with saddle anesthesia and severe back and bilateral leg pain. In light of her presentation and severity of disease she is here for emergent decompression fusion. Description of Procedure Patient was met with identified informed sent obtained. Patient was then taken to the operative suite underwent patient placed in a prone position on the Rikki table atop the Wong frame. All bony promises well-padded eyes inspected to ensure no external precipice upon them. This point the thoracolumbar spine was prepped and draped in a sterile fashion. Sharp dissection with the assistance of Bovie cautery from down to and exposing the lamina transverse processes of T11 T12-L1 and the instrumentation at L2-L3. And then performed a complete laminectomy L1 with bilateral medial facetectomies and foraminotomies addressing severe spinal stenosis. This was followed by partial laminectomy of T12 with bilateral medial facetectomies to address severe spinal stenosis. Pedicle screws were then placed in T12-L1 bilaterally with assistance of fluoroscopy and the connector attached to the salinas at L2-L3. By way of transforaminal approach and a left complete discectomy of L1-L2 was performed endplates guarded to subcortical mean bone. A 9 x 26 mm spiral cage filled with Spira tapped in position. The proper size salinas was then locked into position bilaterally. The transverse processes of T11-T12 L1-L2 burred to subcortical bleeding bone. Infuse collagen sponge, with Koros and local graft placed in the posterior gutters. Versa wrap placed over the exposed dura. 15 round ABELARDO drain inserted. The incision was then closed with 1 Vicryl the fascia 2-0 Vicryl subcutaneously and 4 Monocryl for final skin closure. Steri-Strips sterile dressing placed. Patient waken taken PACU stable condition. Please note spinal cord monitoring was utilized at the procedure no changes noted. Matthew Courtney was present at the entire surgery and while the patient positioning complex portions of the surgery and final skin closure. I attest to the content of the Intraoperative Record and any orders documented therein. Any exceptions are noted below.
--- NOTE | 2024-08-21 14:39 | Fluoroscopy Report ---
FL lumbar spine 2-3V CLINICAL HISTORY: L1-L2 FUSIONstatus post lumbar spine fusion COMPARISON STUDY: Lumbar spine radiographs of same day FLUOROSCOPY TIME: 24.8 seconds FLUOROSCOPY IMAGES: 2 EXPOSURE DOSE: 17.47 mGy FINDINGS: Extensive posterior and right-sided salinas and screw fusion hardware, exact numbering is not d efinitive based on magnification. The imaged hardware appears intact. A surgical drainage catheter is noted. IMPRESSION: Fluoroscopic assistance as above. ACT 112: Negative or not required by law. Electronically signed by: Mike Bradley M.D. 08/21/2024 2:38 PM
--- NOTE | 2024-08-21 14:43 | Anesthesiology Progress Note ---
Date of Service August 21, 2024 Anesthesia Post Procedure Vital Signs Vital Signs: Temp Pulse Pulse Pulse Resp BP BP 08/21/24 14:40 100 H 14 08/21/24 14:30 101 H 15 08/21/24 14:20 36.0 C L 99 H 16 08/21/24 10:56 36.8 C 80 20 08/21/24 07:54 37.0 C 78 17 111/71 08/21/24 00:24 08/21/24 00:24 36.8 C 89 16 08/20/24 23:00 90 20 08/20/24 21:00 80 20 08/20/24 19:39 20 08/20/24 17:48 36.2 C L 88 18 142/83 H BP Pulse Ox O2 Del Method O2 Flow Rate 08/21/24 14:40 116/67 97 Oxymask 6 08/21/24 14:30 109/78 94 Oxymask 8 08/21/24 14:20 108/77 95 Oxymask 8 08/21/24 10:56 105/68 93 Room Air 08/21/24 07:54 92 Room Air 08/21/24 00:24 Room Air 08/21/24 00:24 114/62 96 Room Air 08/20/24 23:00 112/69 97 Room Air 08/20/24 21:00 146/78 H 95 Room Air 08/20/24 19:39 147/85 H 98 Room Air 08/20/24 17:48 97 Room Air Pain Intensity Back: Pain Intensity: 8
--- NOTE | 2024-08-21 16:30 | Anesthesiology Progress Note ---
Date of Service August 21, 2024 Anesthesia Post Procedure Vital Signs Vital Signs: Temp Pulse Pulse Pulse Resp BP BP 08/21/24 16:20 92 H 12 08/21/24 16:10 92 H 12 08/21/24 16:00 98 H 16 08/21/24 15:50 95 H 10 L 08/21/24 15:40 94 H 10 L 08/21/24 15:30 95 H 12 08/21/24 15:20 100 H 14 08/21/24 15:10 96 H 12 08/21/24 15:00 96 H 14 08/21/24 14:50 98 H 14 08/21/24 14:40 100 H 14 08/21/24 14:30 101 H 15 08/21/24 14:20 36.0 C L 99 H 16 08/21/24 10:56 36.8 C 80 20 08/21/24 07:54 37.0 C 78 17 111/71 08/21/24 00:24 08/21/24 00:24 36.8 C 89 16 08/20/24 23:00 90 20 08/20/24 21:00 80 20 08/20/24 19:39 20 08/20/24 17:48 36.2 C L 88 18 142/83 H BP Pulse Ox O2 Del Method O2 Flow Rate 08/21/24 16:20 98/67 L 93 Nasal Cannula 3 08/21/24 16:10 97/68 L 93 Oxymask 4 08/21/24 16:00 90/62 L 92 Oxymask 4 08/21/24 15:50 104/62 92 Oxymask 4 08/21/24 15:40 88/62 L 92 Oxymask 4 08/21/24 15:30 106/60 92 Oxymask 4 08/21/24 15:20 98/74 L 94 Oxymask 3 08/21/24 15:10 109/63 93 Oxymask 4 08/21/24 15:00 94/57 L 93 Oxymask 4 08/21/24 14:50 111/70 95 Oxymask 6 08/21/24 14:40 116/67 97 Oxymask 6 08/21/24 14:30 109/78 94 Oxymask 8 08/21/24 14:20 108/77 95 Oxymask 8 08/21/24 10:56 105/68 93 Room Air 08/21/24 07:54 92 Room Air 08/21/24 00:24 Room Air 08/21/24 00:24 114/62 96 Room Air 08/20/24 23:00 112/69 97 Room Air 08/20/24 21:00 146/78 H 95 Room Air 08/20/24 19:39 147/85 H 98 Room Air 08/20/24 17:48 97 Room Air Pain Intensity Back: Pain Intensity: 8 Transfer of Care Handoff Completed per policy Notes Mental Status: alert / awake / arousable Patient Amnestic to Procedure: Yes Nausea / Vomiting: adequately controlled Pain: adequately controlled Airway Patency, RR, SpO2: stable & adequate BP & HR: stable & adequate Hydration State: stable & adequate Anesthetic Complications: no major complications apparent
[2024-08-21] MEDS ORDERED: ONDANSETRON INJ 2 MG/ML 2 ML VIAL IV PRN (16:44)
[2024-08-21] MEDS ORDERED: traMADol HCL 50 MG TABLET PO PRN (16:44)
[2024-08-21] MEDS ORDERED: LORazepam 2 MG/1 ML VIAL IV PRN (16:44)
[2024-08-21] MEDS ORDERED: ALUMINUM/MAGNESIUM SUSP 30 ML UDC PO PRN (16:44)
[2024-08-21] MEDS ORDERED: DO NOT ADMINISTER PNEUMOCOCCAL VACCINE PRN (16:44)
[2024-08-21] MEDS ORDERED: ACETAMINOPHEN 1,000 MG/100 ML VIAL IV PRN (16:44)
[2024-08-21] MEDS ORDERED: METOCLOPRAMIDE HCL INJ 5 MG/ML 2 ML VIAL IV PRN (16:44)
[2024-08-21] MEDS ORDERED: MoRPHine SULFATE 4 MG/ML 1 ML CARP\\VIAL IV PRN (16:44)
[2024-08-21] MEDS ORDERED: LORazepam 0.5 MG TAB PO PRN (16:44)
[2024-08-21] MEDS ORDERED: hydrOXYzine HCl 25 MG TAB PO PRN (16:44)
[2024-08-21] MEDS ORDERED: PROMETHAZINE 12.5 MG/50.5 ML BAG IV PRN (16:44)
[2024-08-21] MEDS ORDERED: diphenhydrAMINE Capsule 25 MG CAP PO PRN (16:44)
[2024-08-21] MEDS ORDERED: ONDANSETRON 4 MG OD TAB PO PRN (16:44)
[2024-08-21] MEDS ORDERED: MoRPHine SULFATE 2 MG/ML CARP IV PRN (16:44)
[2024-08-21] MEDS ORDERED: NALOXONE HCL 0.4 MG/1 ML VIAL/CARP IV PRN (16:44)
[2024-08-21] MEDS ORDERED: SOD PHOSPHATE/SOD BIPHOSPHATE ENEMA 132 ML BTL PR PRN (16:44)
[2024-08-21] MEDS ORDERED: ALBUTEROL HFA 8 GM INHALER INH PRN (16:44)
[2024-08-21] MEDS ORDERED: bisacodyL 10 MG SUPP PR PRN (16:44)
[2024-08-21] MEDS ORDERED: DO NOT ADMINISTER FLU VACCINE PRN (16:44)
[2024-08-21] MEDS ORDERED: MAGNESIUM HYDROXIDE SUSP 30 ML UDC PO PRN (16:44)
[2024-08-21] MEDS ORDERED: FAMOTIDINE 20 MG TAB PO PRN (16:44)
[2024-08-21] MEDS: CHOLECALCIFEROL 25 MCG (1000 UNITS) TAB PO SCH (20:17)
[2024-08-21] MEDS: DOCUSATE SODIUM/SENNA 50/8.6MG TAB PO SCH (20:17)
[2024-08-21] MEDS: CLINDAMYCIN/D5W 600 MG/50 ML BAG IV SCH (20:17)
[2024-08-21] MEDS ORDERED: Nursing to Pharmacy Communication SCH (20:30)
[2024-08-21] MEDS ORDERED: PARoxetine HCL 20 MG TAB PO SCH (21:00)
[2024-08-21] MEDS: PARoxetine HCL 10 MG TAB PO SCH (21:43)
[2024-08-21] MEDS: PARoxetine HCL 20 MG TAB PO SCH (21:43)
[2024-08-21] MEDS: oxyCODONE HCL IR 5 MG TAB (IMMEDIATE RELEASE) PO PRN (21:46)
[2024-08-22] MEDS: POLYETHYLENE (MIRALAX) 17 GM PACK PO SCH (05:38)
[2024-08-22 07:28] LABS: Basophils # (auto) 0.03 K/uL (0.00-0.20); Basophils % (auto) 0.2 %; Hemoglobin 12.2 g/dl (12.0-16.0); Immature Granulocytes # (auto) 0.08 K/uL (0.01-0.20); Immature Granulocytes % (auto) 0.5 %; Lymphocytes # (auto) 1.39 K/uL (1.20-3.40); Mean Corpuscular Hemoglobin 29.8 pg (25.0-34.0); Mean Corpuscular Volume 90.2 fL (80.0-100.0); Mean Platelet Volume 10.8 fL (9.4-12.4); Monocytes # (auto) 1.15 K/uL (0.11-0.59); Monocytes % (auto) 7.5 %; Neutrophils # (auto) 12.71 K/uL (1.40-6.50); Neutrophils % (auto) 82.8 %; Platelet Count 329 K/uL (130-400); RDW Coefficient of Variation 12.9 % (11.5-14.5); RDW Standard Deviation 42.5 fL (36.4-46.3); White Blood Count 15.36 K/ul (4.8-10.8)
[2024-08-22 07:31] LABS: Calcium 8.8 mg/dl (8.6-10.3); Creatinine Clr Calc Pharmacy 85.5 ml/min
[2024-08-22] MEDS: COUGH DROP (SUGAR FREE) LOZ 24 LOZ/1 BOX BUCCAL ONE (07:32)
[2024-08-22] MEDS: dexAMETHasone 6 MG in SYRINGE 0 ML IV SCH (07:33)
--- NOTE | 2024-08-22 09:14 | Orthopedic Progress Note ---
Date of Service August 22, 2024 Assessment & Plan (1) Cauda equina compression: Plan: This time initiate physical therapy monitor ABELARDO output. Discontinue her Friedman today. Pending her progress she may be able to discharge home tomorrow. Admission and Anticipated Discharge Date Admission Date: August 21, 2024 Subjective Back pain controlled leg symptoms and numbness improved. Physical Exam Physical Exam: Patient is in bed. She is comfortable. Distracted testing. Sensory is improved. Results & Data Vital Signs (Past 12 Hours) Vital Signs Temp Pulse Resp BP Pulse Ox O2 Del Method O2 Flow Rate 08/22/24 07:02 36.9 C 81 18 127/81 94 Nasal Cannula 2 08/22/24 04:07 36.8 C 90 16 116/77 92 Room Air 08/21/24 23:57 36.6 C 88 16 101/65 94 Nasal Cannula 2 Queries Orthopedic Spine Obesity: Yes
--- NOTE | 2024-08-22 11:50 | Hospitalist Progress Note ---
Date of Service August 22, 2024 Assessment & Plan (1) Spinal stenosis, lumbar region with neurogenic claudication: (2) Cauda equina compression: (3) Tobacco use: (4) HLD (hyperlipidemia): (5) GERD (gastroesophageal reflux disease): (6) IBS (irritable bowel syndrome): (7) Depression with anxiety: Plan This is a 59-year-old female who has significant past medical history of Hyperlipidemia, thyroid nodule, GERD, IBS, obesity, DDD, history of cervical and lumbar surgery, RLS, tobacco use disorder, depression with anxiety who presents to ED secondary to abnormal MRI. Outpt MRI done at [facility]: * 1. Stable postsurgical changes of L2 through L5 instrumented posterior spinal fusion, L2-L3 through L4-L5 laminectomies and L3-L4 interbody fusion. * 2. Multilevel degenerative changes in the lumbar spine as described above, more pronounced at L1-L2 level with resultant moderate to severe spinal canal stenosis and compression of the nerve roots of the cauda equina. Interval progression as compared with prior MRI dated 02/13/2022. Progressive lumbar radiculopathy history lumbar surgery 2017 Ortho spine consult -s/p emergent decompression and fusion T11-L2 on 08/21 Pain Control prn PT/OT as appropriate DVT prophylaxis per ortho Incentive spirometry Monitor H&H for acute blood loss anemia; Pre-op Hgb: 16.1. hemoglobin stable COPD pulmonary status at baseline chronic polycythemia possibly from [facility] Outpt followup Diet: Full liquids DVT prophylaxis. SCDs, per ortho Dispo: per PT/OT recs Admission and Anticipated Discharge Date Admission Date: August 21, 2024 Subjective patient was seen sitting up in bed. States her pain is controlled, she just has pain in 1 spot in the back States she has been eating and passing gas Had questions about her surgery Review of Systems Review of Systems: All systems reviewed & are unremarkable except as noted in Subjective Physical Exam Physical Exam: General: Alert, oriented. No acute distress Psych: Appropriate mood and affect Neuro:moving extremities and able to move in the bed without assitance or signifcant pain HEENT: NC/AT CV: RRR Resp: no increased effort of breathing Abdomen: Soft, tender on left Extremities: no swelling on lower extremities bilaterally. Results & Data Results & Data Vital Signs (Past 12 Hours) Vital Signs Temp Pulse Resp BP Pulse Ox O2 Del Method O2 Flow Rate 08/22/24 11:24 37.1 C 91 H 18 146/80 H 93 Room Air 08/22/24 07:02 36.9 C 81 18 127/81 94 Nasal Cannula 2 08/22/24 04:07 36.8 C 90 16 116/77 92 Room Air 08/21/24 23:57 36.6 C 88 16 101/65 94 Nasal Cannula 2
[2024-08-23 06:44] LABS: Hematocrit (blood only) 35.3 % (37.0-47.0); Hemoglobin 12.2 g/dl (12.0-16.0); Mean Corpuscular Hemoglobin 30.7 pg (25.0-34.0); Mean Corpuscular Hgb Conc 34.6 g/dL (32.0-36.0); Mean Corpuscular Volume 88.7 fL (80.0-100.0); Mean Platelet Volume 10.7 fL (9.4-12.4); Platelet Count 343 K/uL (130-400); RDW Standard Deviation 42.5 fL (36.4-46.3); Red Blood Count 3.98 M/uL (4.20-5.40); White Blood Count 15.73 K/ul (4.8-10.8)
[2024-08-23 07:08] LABS: BUN Creatinine Ratio 11.4 (10-20); Calcium 8.8 mg/dl (8.6-10.3); Creatinine Clr Calc Pharmacy 81.8 ml/min; Potassium 3.7 mmol/L (3.5-5.1)
--- NOTE | 2024-08-23 07:49 | Orthopedic Progress Note ---
Date of Service August 23, 2024 Assessment & Plan (1) Spinal stenosis, lumbar region with neurogenic claudication: Plan: At this point the patient is doing well. She has better sensation in her legs and is not having any saddle anesthesia. I am encouraged her to continue walking. Will continue with GI DVT prophylaxis and pain control measures. If all goes well today she is likely be discharged home tomorrow. Admission and Anticipated Discharge Date Admission Date: August 21, 2024 Subjective Patient was seen bedside in room 355. She states she is doing pretty well today. She has some soreness in the back and a little bit under the ribs on the right-hand side. She is not having any leg pain. She has been up and walking. Overall she is pleased with her progress. She denies any other numbness, tingling, or paresthesias. Physical Exam Physical Exam: On exam she is alert and oriented. Her dressing is clean dry and intact. ABELARDO drain is in place and holding suction. Her lower extremity motor exam reveals no focal atrophy her strength and sensation are both intact her abdomen soft nontender calves are supple and nontender. Results & Data Vital Signs (Past 12 Hours) Vital Signs Temp Pulse Resp BP Pulse Ox O2 Del Method 08/22/24 20:41 36.7 C 83 18 136/60 92 Room Air
--- NOTE | 2024-08-23 12:58 | Hospitalist Progress Note ---
Date of Service August 23, 2024 Assessment & Plan (1) Spinal stenosis, lumbar region with neurogenic claudication: (2) Cauda equina compression: (3) Tobacco use: (4) HLD (hyperlipidemia): (5) GERD (gastroesophageal reflux disease): (6) IBS (irritable bowel syndrome): (7) Depression with anxiety: Plan This is a 59-year-old female who has significant past medical history of Hyperlipidemia, thyroid nodule, GERD, IBS, obesity, DDD, history of cervical and lumbar surgery, RLS, tobacco use disorder, depression with anxiety who presents to ED secondary to abnormal MRI. Outpt MRI done at [facility]: * 1. Stable postsurgical changes of L2 through L5 instrumented posterior spinal fusion, L2-L3 through L4-L5 laminectomies and L3-L4 interbody fusion. * 2. Multilevel degenerative changes in the lumbar spine as described above, more pronounced at L1-L2 level with resultant moderate to severe spinal canal stenosis and compression of the nerve roots of the cauda equina. Interval progression as compared with prior MRI dated 02/13/2022. Progressive lumbar radiculopathy history lumbar surgery 2017 Ortho spine consult -s/p emergent decompression and fusion T11-L2 on 08/21 Pain Control prn PT/OT as appropriate DVT prophylaxis per ortho Incentive spirometry Monitor H&H for acute blood loss anemia; Pre-op Hgb: 16.1. hemoglobin stable As needed Flexeril added for muscle spasm COPD pulmonary status at baseline chronic polycythemia possibly from [facility] Outpt followup Diet: Full liquids DVT prophylaxis. SCDs, per ortho Dispo: per PT/OT recs Admission and Anticipated Discharge Date Admission Date: August 21, 2024 Subjective Patient was seen laying in bed. Was disappointed that she could not go home today. States she was told by orthospine that she was still having significant output into her drain. States that she has been having muscle spasms and asking for something to help. Review of Systems Review of Systems: All systems reviewed & are unremarkable except as noted in Subjective Physical Exam Physical Exam: General: Alert, oriented. No acute distress Psych: Appropriate mood and affect Neuro:moving extremities and able to move in the bed without assitance or signifcant pain HEENT: NC/AT CV: RRR Resp: no increased effort of breathing Abdomen: Soft, tender on left Extremities: no swelling on lower extremities bilaterally. Results & Data Results & Data Vital Signs (Past 12 Hours) Vital Signs Temp Pulse Resp BP Pulse Ox O2 Del Method 08/23/24 07:00 36.7 C 88 18 147/82 H 93 Room Air
[2024-08-23] MEDS: CYCLOBENZAPRINE HCL 5 MG TAB PO PRN (20:07)
[2024-08-24] MEDS: ACETAMINOPHEN 500 MG TAB PO PRN (07:25)
[2024-08-24 08:07] LABS: Hematocrit (blood only) 33.6 % (37.0-47.0); Hemoglobin 11.7 g/dl (12.0-16.0); Mean Corpuscular Hgb Conc 34.8 g/dL (32.0-36.0); Mean Corpuscular Volume 88.9 fL (80.0-100.0); Mean Platelet Volume 11.1 fL (9.4-12.4); Platelet Count 326 K/uL (130-400); RDW Standard Deviation 41.9 fL (36.4-46.3); Red Blood Count 3.78 M/uL (4.20-5.40); White Blood Count 14.01 K/ul (4.8-10.8)
[2024-08-24 08:17] VITALS: PULSE 80; RESP 16; TEMP 98.2; O2SAT 93
[2024-08-24 08:24] LABS: BUN Creatinine Ratio 10.8 (10-20); Calcium 8.7 mg/dl (8.6-10.3); Creatinine Clr Calc Pharmacy 88.1 ml/min; Potassium 3.2 mmol/L (3.5-5.1)
--- NOTE | 2024-08-24 10:16 | Discharge Summary ---
Date of Service August 24, 2024 Admission HPI Per Admitting Provider This is a 59-year-old female who has significant past medical history of Hyperlipidemia, thyroid nodule, GERD, IBS, obesity, DDD, history of cervical and lumbar surgery, RLS, tobacco use disorder, depression with anxiety who presents to ED secondary to abnormal MRI. She had a lumbar spine MRI performed on 08/19/2024. Results were consistent with moderate to severe spinal canal stenosis and compression of the nerve roots of the cauda equina more pronounced at L1-L2 level. This revealed significant change from MRI in 2021. Due to her prior history to be performed by Dr. Sharma it was recommended she seek ED at [facility] [address]. She complains of worsening low back pain for the 4 months. She states she was seen down at [facility] and was told it was her neck. She has been, "doctoring," this at home for the last 4 months and the pain and weakness have been getting worse. She is having tingling in her tailbone. She has been using the tylenol with codeine and only mild relief. Again she has had prior lumbar surgery with Dr. Sharma. Over the last few weeks she has had intermittent episodes of bladder incontinence. She also complains of saddle anesthesia. She does have further radicular symptoms with tingling in the posterior aspect of her lower extremities. Principal Diagnosis Lumbar spinal stenosis with cauda equina syndrome Discharge Data Allergies Allergy/AdvReac Type Severity Reaction Status Date / Time hydrocodone Allergy Intermediate ITCHY Verified 08/21/24 10:55 hydromorphone Allergy Intermediate ITCHING Verified 08/21/24 10:55 Penicillins Allergy Intermediate RED DOTS Verified 08/21/24 10:55 AND ITCHY Sulfa (Sulfonamide Allergy Intermediate RED DOTS Verified 08/21/24 10:55 Antibiotics) AND ITCHY ciprofloxacin [Cipro] Allergy Unknown PRURITIS Verified 08/21/24 10:55 PER PCP RECORDS metronidazole Allergy Unknown HIVES PER Verified 08/21/24 10:55 PCP RECORDS morphine Allergy Unknown hives Verified 08/21/24 10:55 moxifloxacin Allergy Unknown HIVES PER Verified 08/21/24 10:55 PCP RECORDS tramadol Allergy Unknown RASH PER Verified 08/21/24 10:55 PCP RECORDS Iodinated Contrast Media Allergy Anaphylaxis Verified 08/21/24 10:55 epinephrine AdvReac Unknown MAKES Verified 08/21/24 10:55 HEART RACE vicodine Allergy Intermediate Hives Uncoded 08/20/24 20:25 fentanyl Allergy Unknown Uncoded 08/20/24 20:25 Consultations 08/20/24 20:13 ED Decision to Admit Stat 08/20/24 23:53 Consult Orthopedic Spine Surgery Routine Procedures Performed Operation Date: 08/21/24 12:00 Actual Procedures p T12-L2 Decompression Fusion(Not Applicable) - Glynn Sharma DO Ordered Studies 08/21/24 [place] lumbar spine 2-3V Routine Hospital Course (1) Cauda equina compression: Patient underwent urgent lumbar decompression fusion tolerates well was taken to orthopedic for postoperative. Postop lesion progressed appropriate. Marked improvement of her symptoms. Excellent strength testing. ABELARDO drain decreased globally. Subsidy discharged home. Discharge orders instructions from the chart for further review. Total Time Total Time Spent Total Time Spent (In Minutes): 20 minutes Discharge Plan Discharge Items Patient Disposition: Home - Self-Care Reason For Visit: BACK PAIN Discharge Diagnosis: Lumbar spinal stenosis with cauda equina syndrome Activity: As commented below Non-emergency contact: Primary Care Provider Call non-emergency contact if: you have any medication questions Follow-up/Referrals: Alexa Martinez MD [Primary Care Provider] - (Date & Time 08/28/2024 12:00 PM Provider Alexa Martinez MD [facility] ) Diet: Regular Addtl Attending Provider Instructions: ACTIVITY RECOMMENDATIONS: SELF CARE INSTRUCTIONS AFTER THORACIC/LUMBAR FUSIONS 1. You may walk to your tolerance. It is good exercise for your legs and back. Expect some back and intermittent leg aches and pains. 2. You may perform "counter-top" level activities (make a sandwich, monica with a project, etc.). 3. No bending or lifting of more than 10 pounds or back twisting of any nature (roll like a log when turning in bed). 4. You may ride in a car for 20-30 minutes at a time. No driving until after your first visit with your doctor. 5. Frequent changes of position and restricting sitting to 30 minutes at a time will help limit the amount of back spasms and stiffness you may experience. 6. You may discontinue the use of ambulatory aids (cane, crutches, etc.) once your strength and confidence allow. 7. You may retail financial analyst the shower and let water strike your incision when you arrive home at least once daily. Do not take a tub bath, sit in a hot tub or go into a swimming pool until after your first recheck in the office. 8. You may resume previous diet. SPECIAL CARE INSTRUCTIONS: VERY IMPORTANT TO READ AND REVIEW A. Your surgical incision has been closed with a cosmetic suture under the skin that will dissolve in about 6 weeks. In 14 days, you can use a pair of clean scissors and cut the suture that is left outside of the skin at the ends of your incision. 1. The small skin tapes can be removed 7 days after surgery if they have not fallen off by that point. 2. You may keep the wound open to air as much as possible to promote healing after post-op day number 5 unless told otherwise by your doctor. 3. If you think the wound looks like it is becoming infected (redness or worsening drainage) and/or you are experiencing fever, chill or worsening back pain and muscle spasms, contact the office so that we may evaluate you as soon as possible. B. Complications are uncommon, but please contact us if you have any signs or symptoms of: 1. wound infection (fever higher than 102.5 degrees F, redness, separation of wound, drainage, or increasing pain from the incision) 2. blood clots in legs (pain, swelling, redness and warmth in legs) 3. urinary tract infection (fever higher than 102.5 degrees F, burning upon urination or increased frequency of urination) 4. nerve problems (inability to walk on your toes or heels, numbness, loss of bowel or bladder control) 5. any other symptoms that concern you C. Please call the office at if you have any concerns or questions about your operation or recovery. D. No smoking! Smoking drastically decreases the chance of a solid fusion. E. Do not take any anti-inflammatory medications (Indocin, Advil, Motrin, Aspir in, Naprosyn, etc.) as these may inhibit the chance of a solid fusion. Tylenol is okay to take for pain. MANAGING PAIN AFTER SPINAL SURGERY 1. Narcotic medication is intended for short-term use and will be provided for surgical pain. Surgical pain usually lasts for a period of 4-6 weeks. Narcotic medication includes Percocet, Vicodin, Darvocet, Tylenol #3 or Lortab. 2. Longer-term pain is more appropriately treated with non-narcotic medication such as Tylenol ES. 3. Muscle spasm is not appropriately treated with narcotics. Muscle relaxers such as Soma, Flexeril or Skelaxin can be used along with Tylenol ES. 4. Remember that we all live with some "aches and pains". This is not unusual or uncommon after an injury or as we get older. a. Back pain is expected and may include muscle spasms for 4 to 6 weeks after surgery. The pain should gradually improve. If the pain worsens for no apparent reason, please contact the office. b. Intermittent leg pain may also be experienced and should not be concerned about unless it worsens for no apparent reason. If so, please contact the office. 5. We will provide appropriate medication within the normal guidelines of their prescribed use. We will also be very cautious and aware of potential abuse and extended duration of patients' medication needs. a. Pain medications are for your comfort and to assist with sleep and rest so that the tissue can heal. They are not provided in order to return to normal activity and should not be used through the day. To do so or worsening pain at night can result from ongoing tissue damage and development of tolerance to the prescribed medicine. 6. Please allow 2-3 days to process refills. Prescriptions will not be mailed but must be picked up at the office. FOLLOW UP VISIT: Keep your scheduled follow-up appointment. Any questions, please call the office at . Pending Studies at Discharge: No Stand-Alone Forms: My [facility] [address] [employer], Smoking Cessation Medications and [place] Order Prescriptions: New oxycodone 5 mg tablet 5 mg PO Q6H PRN (Reason: pain) Qty: 30 0RF Continued multivitamin Tablet 1 tab PO HS paroxetine HCl 10 mg tablet 10 mg PO HS Rx Instructions: take with 40mg tablet to =50mg acetaminophen-codeine 300-30 mg tablet 1 tab PO Q6H PRN (Reason: Moderate Pain (Scale Score 5-6)) omeprazole 40 mg capsule,delayed release(DR/EC) 40 mg PO HS cyanocobalamin (vitamin B-12) 500 mcg Tablet 1,000 mcg PO HS simvastatin 20 mg tablet 20 mg PO HS montelukast 10 mg tablet 10 mg PO HS albuterol sulfate 90 mcg/actuation HFA aerosol inhaler 1 inh INHALATION Q4H PRN (Reason: sob/wheezing) paroxetine HCl 40 mg tablet 40 mg PO HS Rx Instructions: take with 10mg tablet to =50mg cholecalciferol (vitamin D3) 25 mcg (1,000 unit) Tablet 50 mcg PO HS levocetirizine 5 mg tablet 5 mg PO HS Discharge Orders: Discharge Order (Routine); Ordered 08/24/24 Ordered By: Glynn Sharma Admission Data Admit Date/Time: 08/21/24 09:29 Attending Provider: Katy Grossman Admit Provider: Elton Jennings Primary Care Provider: Alexa Martinez Other Providers: Elton Jennings; Glynn Sharma
--- NOTE | 2024-08-24 10:36 | Discharge Summary ---
Discharge Summary Date of Service August 24, 2024 Principal Dx & Hospital Course #1 = Principal Diagnosis (1) Spinal stenosis, lumbar region with neurogenic claudication: (2) Cauda equina compression: (3) Tobacco use: (4) HLD (hyperlipidemia): (5) GERD (gastroesophageal reflux disease): (6) IBS (irritable bowel syndrome): (7) Depression with anxiety: Plan This is a 59-year-old female who has significant past medical history of Hyperlipidemia, thyroid nodule, GERD, IBS, obesity, DDD, history of cervical and lumbar surgery, RLS, tobacco use disorder, depression with anxiety who presents to ED secondary to abnormal MRI. Outpt MRI done at [facility]: * 1. Stable postsurgical changes of L2 through L5 instrumented posterior spinal fusion, L2-L3 through L4-L5 laminectomies and L3-L4 interbody fusion. * 2. Multilevel degenerative changes in the lumbar spine as described above, more pronounced at L1-L2 level with resultant moderate to severe spinal canal stenosis and compression of the nerve roots of the cauda equina. Interval progression as compared with prior MRI dated 02/13/2022. Progressive lumbar radiculopathy history lumbar surgery 2017 Ortho spine consult -s/p emergent decompression and fusion T11-L2 on 08/21 Pain Control prn PT/OT as appropriate DVT prophylaxis per ortho Incentive spirometry Monitor H&H for acute blood loss anemia; Pre-op Hgb: 16.1. hemoglobin stable on discharge at 11.1 As needed Flexeril added for muscle spasm COPD pulmonary status at baseline chronic polycythemia possibly from [facility] Outpt followup Notes For Next Care Provider please ensure orthospine follow-up Medication Changes From Visit oxycodone as needed per Dr. Sharma Admission HPI Per Admitting Provider This is a 59-year-old female who has significant past medical history of Hyperlipidemia, thyroid nodule, GERD, IBS, obesity, DDD, history of cervical and lumbar surgery, RLS, tobacco use disorder, depression with anxiety who presents to ED secondary to abnormal MRI. She had a lumbar spine MRI performed on 08/19/2024. Results were consistent with moderate to severe spinal canal stenosis and compression of the nerve roots of the cauda equina more pronounced at L1-L2 level. This revealed significant change from MRI in 2021. Due to her prior history to be performed by Dr. Sharma it was recommended she seek ED at [facility]. She complains of worsening low back pain for the 4 months. She states she was seen down at [facility] and was told it was her neck. She has been, "doctoring," this at home for the last 4 months and the pain and weakness have been getting worse. She is having tingling in her tailbone. She has been using the tylenol with codeine and only mild relief. Again she has had prior lumbar surgery with Dr. Sharma. Over the last few weeks she has had intermittent episodes of bladder incontinence. She also complains of saddle anesthesia. She does have further radicular symptoms with tingling in the posterior aspect of her lower extremities. Admission Exam Per Admitting Provider Constitutional: WD/WN, vitals as above, NAD, sitting up in bed, pleasant, conversing easily Head: Normocephalic, Atraumatic Eyes: PERRL, conjunctivae normal, anicteric sclerae ENMT: external ear and nose normal, oropharynx normal Neck: trachea midline, no thyromegaly normal visual inspection Respiratory: normal respiratory effort, lungs clear to auscultation, no wheeze, rales, rhonchi. Normal insp/exp effort, no accessory muscle use Cardiovascular: RRR, no murmur, no edema Vessels: no JVD or carotid bruit Chest: normal inspection of chest Abdomen: normal bowel sounds, soft, nontender, no hepatosplenomegaly Musculoskeletal: no cyanosis or clubbing, extremities motor strength 5/5 Skin: no rashes, warm and dry normal turgor Neurologic: PERRL, EOMI, accommodation nl, no face palsy, no dysarthria CN's II-XI intact bilaterally and moves all extremities Psychiatric: A+Ox3, euthymic affect Lymphatic: no cervical or axillary lymphadenopathy : deferred Discharge Exam General: Alert, oriented. No acute distress Psych: Appropriate mood and affect Neuro:moving extremities and able to move in the bed without assitance or signifcant pain HEENT: NC/AT CV: RRR Resp: no increased effort of breathing Abdomen: Soft, tender on left Extremities: no swelling in lower extremities bilaterally. Updated Medication List Medication Instructions Recorded Confirmed Type acetaminophen 300 mg-codeine 30 mg 1 tab PO Q6H PRN Moderate Pain 08/20/24 08/20/24 History tablet (Scale Score 5-6) albuterol sulfate 90 mcg/actuation 1 inh inhalation Q4H PRN 08/20/24 08/20/24 History aerosol inhaler sob/wheezing cholecalciferol (vitamin D3) 25 50 mcg PO HS 08/20/24 08/20/24 History mcg (1,000 unit) tablet cyanocobalamin (vitamin B-12) 500 1,000 mcg PO HS 08/20/24 08/20/24 History mcg tablet levocetirizine 5 mg tablet 5 mg PO HS 08/20/24 08/20/24 History montelukast 10 mg tablet 10 mg PO HS 08/20/24 08/20/24 History multivitamin 1 tab PO HS 08/20/24 08/20/24 History omeprazole 40 mg capsule,delayed 40 mg PO HS 08/20/24 08/20/24 History release paroxetine HCl 10 mg tablet 10 mg PO HS 08/20/24 08/20/24 History paroxetine HCl 40 mg tablet 40 mg PO HS 08/20/24 08/20/24 History simvastatin 20 mg tablet 20 mg PO HS 08/20/24 08/20/24 History oxycodone 5 mg tablet 5 mg PO Q6H PRN pain #30 tabs 08/22/24 Rx Hospital Stay Data Consultations 08/20/24 20:13 ED Decision to Admit Stat 08/20/24 23:53 Consult Orthopedic Spine Surgery Routine Procedures Performed Operation Date: 08/21/24 12:00 Actual Procedures p T12-L2 Decompression Fusion(Not Applicable) - Glynn Sharma DO Diagnostic Imagining Performed 08/21/24 FL lumbar spine 2-3V Routine Lumbar Spine X-Ray 08/21/24 00:00 FL lumbar spine 2-3V CLINICAL HISTORY: L1-L2 FUSIONstatus post lumbar spine fusion COMPARISON STUDY: Lumbar spine radiographs of same day FLUOROSCOPY TIME: 24.8 seconds FLUOROSCOPY IMAGES: 2 EXPOSURE DOSE: 17.47 mGy FINDINGS: Extensive posterior and right-sided [place] and screw fusion hardware, exact numbering is not definitive based on magnification. The imaged hardware appears intact. A surgical drainage catheter is noted. IMPRESSION: Fluoroscopic assistance as above. ACT 112: Negative or not required by law. Electronically signed by: Mike Bradley M.D. 08/21/2024 2:38 PM Lumbar Spine X-Ray 08/21/24 08:18 XR lumbar spine min 4V routine HISTORY: 59 years-old Female pre op eval of fusion chronic low back pain COMPARISON: MR lumbar spine 11/14/2011 TECHNIQUE: 5 views of the lumbar spine FINDINGS: Atherosclerosis. Laminectomy with posterior interbody rods and screw fusion hardware at L2-L5 with L3-L4 discectomy. The hardware appears intact. Demineralized appearance of the bones without acute fracture, subluxation or endplate erosion. [id number] multilevel intervertebral disc space narrowing and spondylotic spurring. Surgical clips project over the abdomen and pelvis. IMPRESSION: 1. No acute fracture or subluxation. 2. Unremarkable appearance of the spinal fusion hardware. ACT 112: Negative or not required by law. The above report was generated using voice recognition software. It may contain grammatical, syntax or spelling errors. Electronically signed by: Mike Bradley M.D. 08/21/2024 9:48 AM Pending Results Patient Have Any Pending Studies at Discharge: No Discharge Instructions Given to Patient (Per Discharging Provider) ACTIVITY RECOMMENDATIONS: SELF CARE INSTRUCTIONS AFTER THORACIC/LUMBAR FUSIONS 1. You may walk to your tolerance. It is good exercise for your legs and back. Expect some back and intermittent leg aches and pains. 2. You may perform "counter-top" level activities (make a sandwich, monica with a project, etc.). 3. No bending or lifting of more than 10 pounds or back twisting of any nature (roll like a log when turning in bed). 4. You may ride in a car for 20-30 minutes at a time. No driving until after your first visit with your doctor. 5. Frequent changes of position and restricting sitting to 30 minutes at a time will help limit the amount of back spasms and stiffness you may experience. 6. You may discontinue the use of ambulatory aids (cane, crutches, etc.) once your strength and confidence allow. 7. You may mapping engineer the shower and let water strike your incision when you arrive home at least once daily. Do not take a tub bath, sit in a hot tub or go into a swimming pool until after your first recheck in the office. 8. You may resume previous diet. SPECIAL CARE INSTRUCTIONS: VERY IMPORTANT TO READ AND REVIEW A. Your surgical incision has been closed with a cosmetic suture under the skin that will dissolve in about 6 weeks. In 14 days, you can use a pair of clean scissors and cut the suture that is left outside of the skin at the ends of your incision. 1. The small skin tapes can be removed 7 days after surgery if they have not fallen off by that point. 2. You may keep the wound open to air as much as possible to promote healing after post-op day number 5 unless told otherwise by your doctor. 3. If you think the wound looks like it is becoming infected (redness or worsening drainage) and/or you are experiencing fever, chill or worsening back pain and muscle spasms, contact the office so that we may evaluate you as soon as possible. B. Complications are uncommon, but please contact us if you have any signs or symptoms of: 1. wound infection (fever higher than 102.5 degrees F, redness, separation of wound, drainage, or increasing pain from the incision) 2. blood clots in legs (pain, swelling, redness and warmth in legs) 3. urinary tract infection (fever higher than 102.5 degrees F, burning upon urination or increased frequency of urination) 4. nerve problems (inability to walk on your toes or heels, numbness, loss of bowel or bladder control) 5. any other symptoms that concern you C. Please call the office at if you have any concerns or questions about your operation or recovery. D. No smoking! Smoking drastically decreases the chance of a solid fusion. E. Do not take any anti-inflammatory medications (Indocin, Advil, Motrin, Aspirin, Naprosyn, etc.) as these may inhibit the chance of a solid fusion. Tylenol is okay to take for pain. MANAGING PAIN AFTER SPINAL SURGERY 1. Narcotic medication is intended for short-term use and will be provided for surgical pain. Surgical pain usually lasts for a period of 4-6 weeks. Narcotic medication includes Percocet, Vicodin, Darvocet, Tylenol #3 or Lortab. 2. Longer-term pain is more appropriately treated with non-narcotic medication such as Tylenol ES. 3. Muscle spasm is not appropriately treated with narcotics. Muscle relaxers such as Soma, Flexeril or Skelaxin can be used along with Tylenol ES. 4. Remember that we all live with some "aches and pains". This is not unusual or uncommon after an injury or as we get older. a. Back pain is expected and may include muscle spasms for 4 to 6 weeks after surgery. The pain should gradually improve. If the pain worsens for no apparent reason, please contact the office. b. Intermittent leg pain may also be experienced and should not be concerned about unless it worsens for no apparent reason. If so, please contact the office. 5. We will provide appropriate medication within the normal guidelines of their prescribed use. We will also be very cautious and aware of potential abuse and extended duration of patients' medication needs. a. Pain medications are for your comfort and to assist with sleep and rest so that the tissue can heal. They are not provided in order to return to normal activity and should not be used through the day. To do so or worsening pain at night can result from ongoing tissue damage and development of tolerance to the prescribed medicine. 6. Please allow 2-3 days to process refills. Prescriptions will not be mailed but must be picked up at the office. FOLLOW UP VISIT: Keep your scheduled follow-up appointment. Any questions, please call the office at . Total Time Total Time Spent Total Time Spent (In Minutes): 60
[2024-08-24 10:45] VITALS: BP 145/77
== END 2024-08-24 11:54 | disposition home or self-care (01) | DRG 454 ==
LOC: ED 17:38 → 3W 17:38